=== PATIENT | male | born 1960 | race African-American/Black ===

== ENCOUNTER 2016-09-13 09:58 | Inpatient (IN) | payer OTHER ==
[2016-09-13 11:58] VITALS: BMI 27.8
--- NOTE | 2016-09-13 12:15 | HP ---
CIWA Score - CIWA Score Nausea/Vomitin Muscle Tremors: 3 Anxiety: 3 Agitation: 2 Paroxysmal Sweats: 1-Minimal Palms Moist Orientation: 0-Oriented Tacttile Disturbances: 2-Mild Itch/Numbness/Burn Auditory Disturbances: 2-Mild Harshness/Frighten Visual Disturbances: 2-Mild Sensitivity Headache: 2-Mild CIWA-Ar Total Score: 20 Admission ROS BHS - HPI Chief Complaint: I NEED HELP TO STOP DRINKING ALCOHOL AND COCAINE Allergies/Adverse Reactions: Allergies Allergy/AdvReac Type Severity Reaction Status Date / Time No Known Allergies Allergy Verified 09/13/16 12:17 History of Present Illness: THIS 56 YEARS OLD MALE WITH ALCOHOL AND COCAINE DEPENDENCE,SEEKING HELP FOR DETOX,NEVER BEEN IN DETOX BEFORE MULTIPLE MEDICAL PROBLEMS HTN,HYPERCHOLESTEROLEMIA,CAD S/P ANGIOPLASTY WITH STENT,PVD S/P STENT OLD CVA WITH LEFT SIDE WEAKNESS AMBULATION WITH CANE ANXIETY AND DEPRESSION - Ebola screening Have you traveled outside of the country in the last 21 days: No Have you been sick,other than usual withdrawal symptoms: No - Review of Systems Constitutional: Loss of Appetite, Malaise, Night Sweats, Changes in sleep EENT: reports: Nose Congestion Respiratory: reports: No Symptoms reported, Other (CAD S/P ANGIOPLASTY WITH SENT ON VESSEL) Cardiac: reports: No Symptoms Reported GI: reports: Nausea, Abdominal cramping : reports: No Symptoms Reported Musculoskeletal: reports: Back Pain, Muscle Pain Integumentary: reports: Dryness Neuro: reports: Headache, Other (PLD CVA WITH LEFT SIDE WEAKNESS) Endocrine: reports: No Symptoms Reported Hematology: reports: No Symptoms Reported Psychiatric: reports: Anxious, Depressed Patient History - Patient Medical History Hx Anemia: No Hx Asthma: No Hx Chronic Obstructive Pulmonary Disease (COPD): No Hx Cancer: No Hx Cardiac Disorders: Yes (CAD S/P ANGIOPLASTY WITH STENT ONE VESSEL IN 09/04/14 ) Hx Congestive Heart Failure: No Hx Hypertension: Yes (ON MED) Hx Hypercholesterolemia: Yes (ON MED) Hx Pacemaker: No HX Cerebrovascular Accident: Yes (OLD WITH LEFT SIDE WEAKNESS 2011) Hx Seizures: No Hx Dementia: No Hx Diabetes: No Hx Gastrointestinal Disorders: No Hx Liver Disease: No Hx Genitourinary Disorders: No Hx Sexually Transmitted Disorders: No Hx Renal Disease (ESRD): No Hx Thyroid Disease: No Hx Human Immunodeficiency Virus (HIV): No (LAST 09/06 NEGATIVE) Hx Hepatitis C: No Hx Depression: Yes (ANXIETY) Hx Suicide Attempt: No Hx Bipolar Disorder: No Hx Schizophrenia: No Other Medical History: NO SUICIDAL,NO HOMICIDAL - Patient Surgical History Hx Cardiac Surgery: Yes (S/P ANGIOPLASTY WITH STENT 09/04/14 ONE STENT) Other Surgical History: PVD S/P STENT IN BOTH EXTREMITIES IN 2012 - PPD History Previous Implant?: Yes Documented Results: Negative w/o proof Implanted On Prior R Admission?: No PPD to be Administered?: Yes - Smoking Cessation Smoking history: Current every day smoker Have you smoked in the past 12 months: Yes Aproximately how many cigarettes per day: 3 Hx Chewing Tobacco Use: No Initiated information on smoking cessation: Yes 'Breaking Loose' booklet given: 09/13/16 - Substance & Tx. History Hx Alcohol Use: Yes Hx Substance Use: Yes Substance Use Type: Alcohol, Cocaine Hx Substance Use Treatment: No Family Disease History - Family Disease History Family History: Denies Admission Physical Exam BHS - Vital Signs Vital Signs: Vital Signs - 24 hr 09/13/16 11:56 Temperature 96.9 F L Pulse Rate 59 L Respiratory 20 Rate Blood Pressure 149/96 - Physical General Appearance: Yes: Moderate Distress, Tremorous, Irritable, Sweating, Anxious HEENTM: Yes: Hearing grossly Normal, Normal ENT Inspection, BRENDEN, Nasal Congestion Respiratory: Yes: Lungs Clear, Normal Breath Sounds, No Respiratory Distress Neck: Yes: Within Normal Limits, Supple, Trachea in good position Breast: Yes: Within Normal Limits Cardiology: Yes: Within Normal Limits, Regular Rhythm, Regular Rate, S1, S2 Abdominal: Yes: Within Normal Limits, Normal Bowel Sounds, Non Tender, Flat, Soft Genitourinary: Yes: Within Normal Limits Back: Yes: Muscle Spasm Musculoskeletal: Yes: Back pain, Muscle Pain Extremities: Yes: Normal Range of Motion (PVD S/P SURGERY SIWTH STENT), Tremors Neurological: Yes: accreditation specialist II-XII NML intact (LEFT HEMIPARESIS LEFT), Fully Oriented , Alert Integumentary: Yes: Dry Lymphatic: Yes: Within Normal Limits - Diagnostic (1) Alcohol dependence with uncomplicated withdrawal Current Visit: Yes Status: Acute (2) Cocaine dependence Current Visit: Yes Status: Acute (3) CAD (coronary artery disease) Current Visit: Yes Status: Acute (4) S/P angioplasty with stent Current Visit: Yes Status: Acute (5) Hemiparesis affecting left side as late effect of cerebrovascular accident Current Visit: Yes Status: Acute (6) Use of cane as ambulatory aid Current Visit: Yes Status: Acute (7) Essential (primary) hypertension Current Visit: Yes Status: Acute (8) Hypercholesteremia Current Visit: Yes Status: Acute (9) PVD (peripheral vascular disease) Current Visit: Yes Status: Acute (10) Anxiety and depression Current Visit: Yes Status: Acute Cleared for Admission [facility] - Detox or Rehab [facility] Level of Care: Medically Managed Detox Regimen/Protocol: Librium [facility] Breath Alcohol Content Breath Alcohol Content: 0 Urine Drug Screen - Results Drug Screen Negative: No Urine Drug Screen Results: CRYSTAL-Cocaine
[2016-09-13] MEDS ORDERED: hydrOXYzine PAMOATE 25 MG CAPSULE (FP) PO PRN (12:49)
[2016-09-13] MEDS ORDERED: LOPERAMIDE HCL 2 MG CAPSULE PO PRN (12:49)
[2016-09-13] MEDS ORDERED: P-EPHED 60MG/TRIPROLIDI 2.5MG TABLET PO PRN (12:49)
[2016-09-13] MEDS ORDERED: MAGNESIUM HYDROX 2400MG/30ML ORAL SUSPENSION 30 ML CUP PO PRN (12:49)
[2016-09-13] MEDS ORDERED: chlordiazePOXIDE HCL 25 MG CAPSULE PO PRN (12:49)
[2016-09-13] MEDS ORDERED: MAGNESIUM CITRATE 300 ML BOTTLE PO PRN (12:49)
[2016-09-13] MEDS ORDERED: diphenhydrAMINE HCL 50 MG CAPSULE PO PRN (12:49)
[2016-09-13] MEDS ORDERED: guaiFENesin/D-METHORPHAN HB 10 ML UNIT-DOSE CUPS PO PRN (12:49)
[2016-09-13] MEDS ORDERED: ACETAMINOPHEN 325 MG TABLET (FP) PO PRN (12:49)
[2016-09-13] MEDS ORDERED: IBUPROFEN 400 MG TABLET (FP) PO PRN (12:49)
[2016-09-13] MEDS ORDERED: MENTHOL/PHENOL 1 EACH UD MM PRN (12:49)
[2016-09-13] MEDS ORDERED: MAG HYDROX/AL HYDROX/SIMETH 30 ML UNIT-DOSE CUP PO PRN (12:49)
[2016-09-13] MEDS ORDERED: chlordiazePOXIDE HCL 25 MG CAPSULE PO ONE (12:55)
[2016-09-13] MEDS ORDERED: NITROGLYCERIN SUBLINGUAL 1/150 0.4 MG TAB SL SCH (13:00)
[2016-09-13] MEDS: HYDROCHLOROTHIAZIDE 25 MG TABLET (FP) PO SCH (15:01)
[2016-09-13] MEDS: NICOTINE 14 MG/24 HOURS TOPICAL PATCH TD SCH (15:01)
[2016-09-13] MEDS: METOPROLOL TARTRATE 25 MG TABLET (FP) PO SCH (15:01)
[2016-09-13] MEDS: amLODIPine BESYLATE 10 MG TABLET (FP) PO SCH (15:01)
[2016-09-13] MEDS: CLOPIDOGREL BISULFATE 75 MG TABLET (FP) PO SCH (15:01)
[2016-09-13] MEDS: ASPIRIN 81 MG CHEWABLE TABLETS PO SCH (15:02)
[2016-09-13] MEDS: chlordiazePOXIDE HCL 25 MG CAPSULE PO SCH ×2 (17:24→22:38)
[2016-09-13 17:38] LABS: URINE APPEARANCE SLCLOUDY; URINE BILIRUBIN NEGATIVE (NEGATIVE); URINE BLOOD 2+ (NEGATIVE); URINE COLOR YELLOW; URINE GLUCOSE (UA) NEGATIVE (NEGATIVE); URINE KETONE NEGATIVE (NEGATIVE); URINE NITRITE NEGATIVE (NEGATIVE); URINE PROTEIN NEGATIVE (NEGATIVE); URINE UROBILINOGEN 4.0 E.U/dl mg/dL (0.2-1.0)
[2016-09-13 17:39] LABS: URINE LEUK ESTERASE 3+ (NEGATIVE)
[2016-09-13 17:48] LABS: URINE BACTERIA RARE /hpf (NONE SEEN); URINE MUCUS RARE; URINE RBC 8 /hpf (0-3); URINE WBC 92 /hpf (3-5)
[2016-09-13] MEDS: ATORVASTATIN CA 10 MG TABLET (FP) PO SCH (22:38)
[2016-09-13] MEDS: THIAMINE HCL 100 MG TABLET (FP) PO SCH (22:39)
[2016-09-14] MEDS: chlordiazePOXIDE HCL 25 MG CAPSULE PO SCH ×4 (05:55→22:51)
--- NOTE | 2016-09-14 10:18 | CONSULT ---
[facility] Psychiatric Consult - Data Date of interview: 09/14/16 Admission source: [facility] Identifying data: First admission to [facility] for this 51 y/o male seeking detox treatment at [address] [place] [address] for alcohol and cocaine dependence.Patient is single,a father of two,domiciled,unemployed and deprived of any form of financial support. Substance Abuse History: Heroin since age 13 (intravenous route/10 bags daily) and alcohol (2 pints of vodka).Smokes one pack of cigarettes daily.Last use on . Medical History: Hypertension,cardiac stent X 1,History of CVA with left sided weakness,peripheral vascular disease,coronary artery disease and hypercholesterolemia. Psychiatric History: Diagnosed with Bipolar Disorder.Prescribed remeron,celexa, abilify and klonopin.Followed at the [facility] in [facility].Mr Ospina denies history of suicide attempts. Physical/Sexual Abuse/Trauma History: Patient denies. Mental Status Exam - Mental Status Exam Alert and Oriented to: Time, Place, Person Cognitive Function: Good Patient Appearance: Well Groomed Mood: Withdrawn, Hopeful Affect: Mood Congruent Patient Behavior: Fatigued, Cooperative Speech Pattern: Clear Voice Loudness: Normal Thought Process: Goal Oriented Thought Disorder: Not Present Hallucinations: Denies Suicidal Ideation: Denies Homicidal Ideation: Denies Insight/Judgement: Poor Sleep: Poorly, Difficulty falling asleep Appetite: Good Gait/Station: Other (unsteady gait) Psychiatric Findings - Problem List ([place] 1, 2,3) (1) Alcohol dependence with uncomplicated withdrawal Current Visit: Yes Status: Acute (2) Cocaine dependence Current Visit: Yes Status: Acute (3) Nicotine dependence Current Visit: Yes Status: Acute (4) Substance induced mood disorder Current Visit: Yes Status: Acute (5) CAD (coronary artery disease) Current Visit: Yes Status: Chronic (6) Essential (primary) hypertension Current Visit: Yes Status: Chronic (7) Hemiparesis affecting left side as late effect of cerebrovascular accident Current Visit: Yes Status: Chronic (8) Hypercholesteremia Current Visit: Yes Status: Chronic (9) PVD (peripheral vascular disease) Current Visit: Yes Status: Chronic (10) S/P angioplasty with stent Current Visit: Yes Status: Chronic (11) Use of cane as ambulatory aid Current Visit: Yes Status: Chronic - Initial Treatment Plan Initial Treatment Plan: Psychoeducation.Detoxification.Remeron 15 mg po hs + celexa 20 mg po daily + abilify 5mg po daily.Side effects/benefits discussed with the patient.He agrees with this careplan.Observation.Fall precautions.Pharmacy claims are reviewed .No scripts at discharge (scripts already filled at [facility] on 09/03/16 for these medications).
[2016-09-14] MEDS: CLOPIDOGREL BISULFATE 75 MG TABLET (FP) PO SCH (10:30)
[2016-09-14] MEDS: ASPIRIN 81 MG CHEWABLE TABLETS PO SCH (10:30)
[2016-09-14] MEDS: NICOTINE 14 MG/24 HOURS TOPICAL PATCH TD SCH (10:30)
[2016-09-14] MEDS: HYDROCHLOROTHIAZIDE 25 MG TABLET (FP) PO SCH (10:30)
[2016-09-14] MEDS: PRENATAL VITAMINS W/ FOLIC ACID TABLET (FP) PO SCH (10:30)
[2016-09-14] MEDS: METOPROLOL TARTRATE 25 MG TABLET (FP) PO SCH (10:30)
[2016-09-14] MEDS: amLODIPine BESYLATE 10 MG TABLET (FP) PO SCH (10:30)
[2016-09-14 10:34] LABS: MCH 31.2 pg (25.7-33.7); MCHC 32.9 g/dl (32.0-35.9); MEAN CELL VOLUME 94.6 fl (80-96); MEAN PLT VOLUME 8.6 fl (7.5-11.1); PLATELET COUNT 255 K/MM3 (134-434); RDW 13.5 % (11.9-15.9); WHITE BLOOD COUNT 10.7 K/mm3 (4.0-10.0)
[2016-09-14 11:05] LABS: ALBUMIN 3.8 g/dl (3.4-5.0); ALK PHOS 101 U/L (45-117); ANION GAP 9 (8-16); BILIRUBIN,TOTAL 0.7 mg/dL (0.2-1.0); CALCIUM 9.7 mg/dL (8.5-10.1); CO2 29 mmol/L (21-32); CREATININE 1.2 mg/dL (0.7-1.3); GLUCOSE,RANDOM 50 mg/dL (74-106); SGOT/AST 17 U/L (15-37); SGPT/ALT 17 U/L (12-78); TOT PROT 7.5 g/dl (6.4-8.2)
--- NOTE | 2016-09-14 13:39 | PN ---
[facility] CIWA - CIWA Score Nausea/Vomitin Muscle Tremors: 4-Moderate,w/Arms Extend Anxiety: 3 Agitation: 3 Paroxysmal Sweats: 3 Orientation: 0-Oriented Tacttile Disturbances: 0-None Auditory Disturbances: 0-None Visual Disturbances: 0-None Headache: 0-None Present CIWA-Ar Total Score: 15 [facility] Progress Note (SOAP) Subjective: Anxiety,tremors,sweating,interrupted sleep,restless Objective: 09/14/16 13:37 Vital Signs - 8 hr 09/14/16 09/14/16 09/14/16 06:52 09:33 13:24 Temperature 96.7 F L 97.2 F L 96.7 F L Pulse Rate 59 L 64 53 L Respiratory 18 18 18 Rate Blood Pressure 124/87 126/82 107/79 Laboratory Results - last 24 hr 09/13/16 09/14/16 09/14/16 15:30 06:00 06:00 WBC 10.7 H RBC 4.71 Hgb 14.7 Hct 44.6 MCV 94.6 MCH 31.2 MCHC 32.9 RDW 13.5 Plt Count 255 MPV 8.6 Sodium 143 Potassium 4.0 Chloride 105 Carbon Dioxide 29 Anion Gap 9 BUN 11 Creatinine 1.2 Creat Clearance w eGFR > 60 Random Glucose 50 L Calcium 9.7 Total Bilirubin 0.7 AST 17 ALT 17 Alkaline Phosphatase 101 Total Protein 7.5 Albumin 3.8 Urine Color Yellow Urine Appearance Slcloudy Urine pH 5.0 Ur Specific [place] 1.020 Urine Protein Negative Urine Glucose (UA) Negative Urine Ketones Negative Urine Blood 2+ H Urine Nitrite Negative Urine Bilirubin Negative Urine Urobilinogen 4.0 e.u/dl Ur Leukocyte Esterase 3+ H Urine RBC 8 Urine WBC 92 Ur Epithelial Cells Rare Urine Bacteria Rare Urine Mucus Rare RPR Titer 09/14/16 06:00 WBC RBC Hgb Hct MCV MCH MCHC RDW Plt Count MPV Sodium Potassium Chloride Carbon Dioxide Anion Gap BUN Creatinine Creat Clearance w eGFR Random Glucose Calcium Total Bilirubin AST ALT Alkaline Phosphatase Total Protein Albumin Urine Color Urine Appearance Urine pH Ur Specific [place] Urine Protein Urine Glucose (UA) Urine Ketones Urine Blood Urine Nitrite Urine Bilirubin Urine Urobilinogen Ur Leukocyte Esterase Urine RBC Urine WBC Ur Epithelial Cells Urine Bacteria Urine Mucus RPR Titer Nonreactive labs noted,u/a is abnormal U/C&S ordered Assessment: 09/14/16 13:38 Withdrawal sx. Plan: Continue detox
[2016-09-14 14:14] LABS: SICKLE CELL SCREEN NEGATIVE (NEGATIVE)
[2016-09-14] MEDS: THIAMINE HCL 100 MG TABLET (FP) PO SCH (22:51)
[2016-09-14] MEDS: ATORVASTATIN CA 10 MG TABLET (FP) PO SCH (22:51)
[2016-09-14] MEDS: MIRTAZAPINE 15 MG TABLET (FP) PO SCH (22:51)
[2016-09-15] MEDS: chlordiazePOXIDE HCL 25 MG CAPSULE PO SCH ×3 (05:54→11:50)
[2016-09-15] MEDS: METOPROLOL TARTRATE 25 MG TABLET (FP) PO SCH (10:39)
[2016-09-15] MEDS: amLODIPine BESYLATE 10 MG TABLET (FP) PO SCH (10:39)
[2016-09-15] MEDS: PRENATAL VITAMINS W/ FOLIC ACID TABLET (FP) PO SCH (10:39)
[2016-09-15] MEDS: ASPIRIN 81 MG CHEWABLE TABLETS PO SCH (10:39)
[2016-09-15] MEDS: CITALOPRAM HYDROBROMIDE 20 MG TABLET (FP) PO SCH (10:39)
[2016-09-15] MEDS: CLOPIDOGREL BISULFATE 75 MG TABLET (FP) PO SCH (10:39)
[2016-09-15] MEDS: HYDROCHLOROTHIAZIDE 25 MG TABLET (FP) PO SCH (10:39)
[2016-09-15] MEDS: ARIPiprazole 5 MG TABLET (FP) PO SCH (11:09)
[2016-09-15] MEDS: NICOTINE 14 MG/24 HOURS TOPICAL PATCH TD SCH (11:10)
--- NOTE | 2016-09-15 12:23 | EKG ---
Test Reason : Blood Pressure : / mmHG Vent. Rate : 055 BPM Atrial Rate : 055 BPM P-R Int : 134 ms QRS Dur : 110 ms QT Int : 424 ms P-R-T Axes : -29 019 027 degrees QTc Int : 405 ms SINUS BRADYCARDIA MINIMAL VOLTAGE CRITERIA FOR LVH, MAY BE NORMAL VARIANT BORDERLINE ECG NO PREVIOUS ECGS AVAILABLE Confirmed by TRISTIN PATEL MD ([id number]) on 09/15/2016 12:22:47 PM Referred By: Confirmed By:TRISTIN PATEL MD
--- NOTE | 2016-09-15 15:38 | PN ---
[facility] CIWA - CIWA Score Nausea/Vomitin-No Nausea/No Vomiting Muscle Tremors: 3 Anxiety: 2 Agitation: 2 Paroxysmal Sweats: 3 Orientation: 0-Oriented Tacttile Disturbances: 0-None Auditory Disturbances: 0-None Visual Disturbances: 0-None Headache: 0-None Present CIWA-Ar Total Score: 10 S Progress Note (SOAP) Subjective: Sweating,anxiety,tremors,interrupted sleep. Objective: 09/15/16 15:36 Vital Signs - 8 hr 09/15/16 09/15/16 09:49 13:52 Temperature 98.4 F Pulse Rate 71 57 L Respiratory 18 20 Rate Blood Pressure 131/83 124/80 Laboratory Last Values WBC 10.7 K/mm3 (4.0-10.0) H 09/14/16 06:00 RBC 4.71 M/mm3 (4.00-5.60) 09/14/16 06:00 Hgb 14.7 GM/dL (11.7-16.9) 09/14/16 06:00 Hct 44.6 % (35.4-49) 09/14/16 06:00 MCV 94.6 fl (80-96) 09/14/16 06:00 MCH 31.2 pg (25.7-33.7) 09/14/16 06:00 MCHC 32.9 g/dl (32.0-35.9) 09/14/16 06:00 RDW 13.5 % (11.9-15.9) 09/14/16 06:00 Plt Count 255 K/MM3 (134-434) 09/14/16 06:00 MPV 8.6 fl (7.5-11.1) 09/14/16 06:00 Sickle Cell Screen Negative (NEGATIVE) 09/14/16 06:00 Sodium 143 mmol/L (136-145) 09/14/16 06:00 Potassium 4.0 mmol/L (3.5-5.1) 09/14/16 06:00 Chloride 105 mmol/L (98-107) 09/14/16 06:00 Carbon Dioxide 29 mmol/L (21-32) 09/14/16 06:00 Anion Gap 9 (8-16) 09/14/16 06:00 BUN 11 mg/dL (7-18) 09/14/16 06:00 Creatinine 1.2 mg/dL (0.7-1.3) 09/14/16 06:00 Creat Clearance w eGFR > 60 (>60) 09/14/16 06:00 Random Glucose 50 mg/dL (74-106) L 09/14/16 06:00 Calcium 9.7 mg/dL (8.5-10.1) 09/14/16 06:00 Total Bilirubin 0.7 mg/dL (0.2-1.0) 09/14/16 06:00 AST 17 U/L (15-37) 09/14/16 06:00 ALT 17 U/L (12-78) 09/14/16 06:00 Alkaline Phosphatase 101 U/L (45-117) 09/14/16 06:00 Total Protein 7.5 g/dl (6.4-8.2) 09/14/16 06:00 Albumin 3.8 g/dl (3.4-5.0) 09/14/16 06:00 Urine Color Yellow 09/13/16 15:30 Urine Appearance Slcloudy 09/13/16 15:30 Urine pH 5.0 (5.0-8.0) 09/13/16 15:30 Ur Specific [place] 1.020 (1.005-1.025) 09/13/16 15:30 Urine Protein Negative (NEGATIVE) 09/13/16 15:30 Urine Glucose (UA) Negative (NEGATIVE) 09/13/16 15:30 Urine Ketones Negative (NEGATIVE) 09/13/16 15:30 Urine Blood 2+ (NEGATIVE) H 09/13/16 15:30 Urine Nitrite Negative (NEGATIVE) 09/13/16 15:30 Urine Bilirubin Negative (NEGATIVE) 09/13/16 15:30 Urine Urobilinogen 4.0 e.u/dl mg/dL (0.2-1.0) 09/13/16 15:30 Ur Leukocyte Esterase 3+ (NEGATIVE) H 09/13/16 15:30 Urine RBC 8 /hpf (0-3) 09/13/16 15:30 Urine WBC 92 /hpf (3-5) 09/13/16 15:30 Ur Epithelial Cells Rare /hpf (FEW) 09/13/16 15:30 Urine Bacteria Rare /hpf (NONE SEEN) 09/13/16 15:30 Urine Mucus Rare 09/13/16 15:30 RPR Titer Nonreactive (NONREACTIVE) 09/14/16 06:00 labs noted Assessment: 09/15/16 15:37 Withdrawal sx. Plan: Continue detox u/c&s pending
[2016-09-15] MEDS: chlordiazePOXIDE 5 MG CAPSULE PO SCH ×2 (17:13→22:34)
[2016-09-15] MEDS: THIAMINE HCL 100 MG TABLET (FP) PO SCH (22:34)
[2016-09-15] MEDS: ATORVASTATIN CA 10 MG TABLET (FP) PO SCH (22:34)
[2016-09-15] MEDS: MIRTAZAPINE 15 MG TABLET (FP) PO SCH (22:34)
[2016-09-16] MEDS: chlordiazePOXIDE 5 MG CAPSULE PO SCH (05:36)
[2016-09-16 06:52] VITALS: BP 120/79; PULSE 62; TEMP 96.9
[2016-09-16] MEDS: ASPIRIN 81 MG CHEWABLE TABLETS PO SCH (09:25)
[2016-09-16] MEDS: CLOPIDOGREL BISULFATE 75 MG TABLET (FP) PO SCH (09:25)
[2016-09-16] MEDS: CITALOPRAM HYDROBROMIDE 20 MG TABLET (FP) PO SCH (09:26)
[2016-09-16] MEDS: amLODIPine BESYLATE 10 MG TABLET (FP) PO SCH (09:26)
[2016-09-16] MEDS: ARIPiprazole 5 MG TABLET (FP) PO SCH (09:26)
[2016-09-16] MEDS: PRENATAL VITAMINS W/ FOLIC ACID TABLET (FP) PO SCH (09:26)
[2016-09-16] MEDS: NICOTINE 14 MG/24 HOURS TOPICAL PATCH TD SCH (09:26)
[2016-09-16] MEDS: METOPROLOL TARTRATE 25 MG TABLET (FP) PO SCH (09:26)
[2016-09-16] MEDS: HYDROCHLOROTHIAZIDE 25 MG TABLET (FP) PO SCH (09:26)
--- NOTE | 2016-09-16 14:17 | DS ---
[facility] Detox Discharge Summary Admission Date: 09/13/16 Discharge Date: 09/16/16 - History Present History: Alcohol Dependence, Cocaine Dependence Pertinent Past History: CAD HTN Hypercholesterolemia coronary stent - Physical Exam Results Vital Signs: Vital Signs Temperature 96.9 F L 09/16/16 06:51 Pulse Rate 62 09/16/16 06:51 Respiratory Rate 18 09/16/16 06:51 Blood Pressure 120/79 09/16/16 06:51 O2 Sat by Pulse Oximetry (%) Pertinent Admission Physical Exam Findings: Withdrawal sx. Laboratory Last Values WBC 10.7 K/mm3 (4.0-10.0) H 09/14/16 06:00 RBC 4.71 M/mm3 (4.00-5.60) 09/14/16 06:00 Hgb 14.7 GM/dL (11.7-16.9) 09/14/16 06:00 Hct 44.6 % (35.4-49) 09/14/16 06:00 MCV 94.6 fl (80-96) 09/14/16 06:00 MCH 31.2 pg (25.7-33.7) 09/14/16 06:00 MCHC 32.9 g/dl (32.0-35.9) 09/14/16 06:00 RDW 13.5 % (11.9-15.9) 09/14/16 06:00 Plt Count 255 K/MM3 (134-434) 09/14/16 06:00 MPV 8.6 fl (7.5-11.1) 09/14/16 06:00 Sickle Cell Screen Negative (NEGATIVE) 09/14/16 06:00 Sodium 143 mmol/L (136-145) 09/14/16 06:00 Potassium 4.0 mmol/L (3.5-5.1) 09/14/16 06:00 Chloride 105 mmol/L (98-107) 09/14/16 06:00 Carbon Dioxide 29 mmol/L (21-32) 09/14/16 06:00 Anion Gap 9 (8-16) 09/14/16 06:00 BUN 11 mg/dL (7-18) 09/14/16 06:00 Creatinine 1.2 mg/dL (0.7-1.3) 09/14/16 06:00 Creat Clearance w eGFR > 60 (>60) 09/14/16 06:00 Random Glucose 50 mg/dL (74-106) L 09/14/16 06:00 Calcium 9.7 mg/dL (8.5-10.1) 09/14/16 06:00 Total Bilirubin 0.7 mg/dL (0.2-1.0) 09/14/16 06:00 AST 17 U/L (15-37) 09/14/16 06:00 ALT 17 U/L (12-78) 09/14/16 06:00 Alkaline Phosphatase 101 U/L (45-117) 09/14/16 06:00 Total Protein 7.5 g/dl (6.4-8.2) 09/14/16 06:00 Albumin 3.8 g/dl (3.4-5.0) 09/14/16 06:00 Urine Color Yellow 09/13/16 15:30 Urine Appearance Slcloudy 09/13/16 15:30 Urine pH 5.0 (5.0-8.0) 09/13/16 15:30 Ur Specific [place] 1.020 (1.005-1.025) 09/13/16 15:30 Urine Protein Negative (NEGATIVE) 09/13/16 15:30 Urine Glucose (UA) Negative (NEGATIVE) 09/13/16 15:30 Urine Ketones Negative (NEGATIVE) 09/13/16 15:30 Urine Blood 2+ (NEGATIVE) H 09/13/16 15:30 Urine Nitrite Negative (NEGATIVE) 09/13/16 15:30 Urine Bilirubin Negative (NEGATIVE) 09/13/16 15:30 Urine Urobilinogen 4.0 e.u/dl mg/dL (0.2-1.0) 09/13/16 15:30 Ur Leukocyte Esterase 3+ (NEGATIVE) H 09/13/16 15:30 Urine RBC 8 /hpf (0-3) 09/13/16 15:30 Urine WBC 92 /hpf (3-5) 09/13/16 15:30 Ur Epithelial Cells Rare /hpf (FEW) 09/13/16 15:30 Urine Bacteria Rare /hpf (NONE SEEN) 09/13/16 15:30 Urine Mucus Rare 09/13/16 15:30 RPR Titer Nonreactive (NONREACTIVE) 09/14/16 06:00 labs noted - Treatment Patient has Accepted a Rehab Referral to: [facility] - Medication Discharge Medications: Ambulatory Orders Amlodipine Besylate [Norvasc -] 10 mg PO DAILY 09/13/16 Aripiprazole [Abilify -] 5 mg PO DAILY 09/13/16 Aspirin [ASA -] 81 mg PO DAILY 09/13/16 Citalopram Hydrobromide [Celexa -] 20 mg PO DAILY 09/13/16 Clopidogrel Bisulfate [Plavix -] 75 mg PO DAILY 09/13/16 Hydrochlorothiazide 25 mg PO DAILY 09/13/16 Metoprolol Tartrate [Lopressor -] 25 mg PO DAILY 09/13/16 Nitroglycerin [Nitrostat] 0.4 mg SL PRN 09/13/16 Simvastatin [Zocor -] 20 mg PO HS 09/13/16 - Diagnosis (1) Alcohol dependence with uncomplicated withdrawal Status: Acute (2) Cocaine dependence Status: Acute Qualifiers: Substance use status: uncomplicated Qualified Code(s): F14.20 - Cocaine dependence, uncomplicated (3) Nicotine dependence Status: Acute Qualifiers: Nicotine product type: cigarettes Substance use status: uncomplicated Qualified Code(s): F17.210 - Nicotine dependence, cigarettes, uncomplicated (4) Substance induced mood disorder Status: Acute (5) CAD (coronary artery disease) Status: Chronic Qualifiers: Coronary Disease-Associated Artery/Lesion type: [place] artery [place] vs. transplanted heart: [place] heart Associated angina: without angina Qualified Code(s): I25.10 - Atherosclerotic heart disease of [place] coronary artery without angina pectoris (6) Essential (primary) hypertension Status: Chronic (7) Hypercholesteremia Status: Chronic (8) PVD (peripheral vascular disease) Status: Chronic (9) S/P angioplasty with stent Status: Chronic - AMA Did Patient Leave Against Medical Advice: Yes
[2016-09-16] MEDS ORDERED: chlordiazePOXIDE HCL 10 MG CAPSULE PO SCH (17:00)
== END 2016-09-16 09:28 | disposition left against medical advice (07) | DRG 774 ==
LOC: YASAS 09:58 → Y3N 12:42
PROVIDERS: ADMIT Internal Medicine; ATTEND Internal Medicine
PROC: HZ2ZZZZ Detoxification Services for Substance Abuse Treatment (ICD-10-PCS; principal; 2016-09-13)
DX: F10.230 Alcohol dependence with withdrawal, uncomplicated (principal); F14.20 Cocaine dependence, uncomplicated; F17.210 Nicotine dependence, cigarettes, uncomplicated; F19.24 Other psychoactive substance dependence with psychoactive substance-induced mood disorder; I10 Essential (primary) hypertension; I25.10 Atherosclerotic heart disease of native coronary artery without angina pectoris; I69.354 Hemiplegia and hemiparesis following cerebral infarction affecting left non-dominant side; E78.00 Pure hypercholesterolemia, unspecified; I73.9 Peripheral vascular disease, unspecified; R82.90 Unspecified abnormal findings in urine; Z79.82 Long term (current) use of aspirin; Z95.5 Presence of coronary angioplasty implant and graft; R26.2 Difficulty in walking, not elsewhere classified; Z99.89 Dependence on other enabling machines and devices
CPT/HCPCS: 36415; 80053; 81003; 81015; 85027; 85660; 86593; 87086; 93005; 93010

== ENCOUNTER 2016-09-27 11:05 | Inpatient (IN) | payer OTHER ==
[2016-09-27 12:58] VITALS: BMI 26.6
[2016-09-27] MEDS ORDERED: LOPERAMIDE HCL 2 MG CAPSULE PO PRN (15:07)
[2016-09-27] MEDS ORDERED: IBUPROFEN 400 MG TABLET (FP) PO PRN (15:07)
[2016-09-27] MEDS ORDERED: MAGNESIUM HYDROX 2400MG/30ML ORAL SUSPENSION 30 ML CUP PO PRN (15:07)
[2016-09-27] MEDS ORDERED: hydrOXYzine PAMOATE 25 MG CAPSULE (FP) PO PRN (15:07)
[2016-09-27] MEDS ORDERED: MAGNESIUM CITRATE 300 ML BOTTLE PO PRN (15:07)
[2016-09-27] MEDS ORDERED: MAG HYDROX/AL HYDROX/SIMETH 30 ML UNIT-DOSE CUP PO PRN (15:07)
[2016-09-27] MEDS ORDERED: guaiFENesin/D-METHORPHAN HB 10 ML UNIT-DOSE CUPS PO PRN (15:07)
[2016-09-27] MEDS ORDERED: ACETAMINOPHEN 325 MG TABLET (FP) PO PRN (15:07)
[2016-09-27] MEDS ORDERED: diphenhydrAMINE HCL 50 MG CAPSULE PO PRN (15:07)
[2016-09-27] MEDS ORDERED: P-EPHED 60MG/TRIPROLIDI 2.5MG TABLET PO PRN (15:07)
[2016-09-27] MEDS ORDERED: NICOTINE POLACRILEX 2 MG GUM BUC PRN (15:07)
[2016-09-27] MEDS ORDERED: MENTHOL/PHENOL 1 EACH UD MM PRN (15:07)
--- NOTE | 2016-09-27 15:07 | HP ---
[facility] Rehab Assess/Revision - Admission History Admitted to Rehab from: [facility] (DETOXED 09/13/16 TO 09/16/16) Date of Admission to Rehab: 09/27/16 - Vital signs Vital Signs: Vital Signs Period Temp Pulse Resp BP Sys/Odell Pulse Ox Last 24 Hr 96.4 F 50 20 131/86 - Findings Detox History & Physical reviewed: Yes Concur with findings: Yes Comments/Additional Findings: PT RETURNED TO FOLLOW UP WITH REHAB. ALERT O X 3. NAD. ADMIT TO REHAB
[2016-09-27] MEDS ORDERED: NITROGLYCERIN SUBLINGUAL 1/150 0.4 MG TAB SL SCH (15:15)
[2016-09-27] MEDS: NICOTINE 14 MG/24 HOURS TOPICAL PATCH TD SCH (18:15)
[2016-09-27] MEDS: CLOPIDOGREL BISULFATE 75 MG TABLET (FP) PO SCH (18:16)
[2016-09-27] MEDS: HYDROCHLOROTHIAZIDE 25 MG TABLET (FP) PO SCH (18:16)
[2016-09-27] MEDS ORDERED: PT OWN MED DRAWER 7, Y5N ONE (19:40)
[2016-09-27] MEDS: PATIENT'S OWN MEDICATION (NON-FORMULARY) (Simvastatin 20 MG) PO SCH (21:12)
[2016-09-27] MEDS: THIAMINE HCL 100 MG TABLET (FP) PO SCH (21:12)
[2016-09-27 22:50] LABS: URINE APPEARANCE SLCLOUDY; URINE BILIRUBIN NEGATIVE (NEGATIVE); URINE BLOOD 1+ (NEGATIVE); URINE COLOR YELLOW; URINE GLUCOSE (UA) NEGATIVE (NEGATIVE); URINE KETONE NEGATIVE (NEGATIVE); URINE LEUK ESTERASE NEGATIVE (NEGATIVE); URINE NITRITE NEGATIVE (NEGATIVE); URINE PROTEIN NEGATIVE (NEGATIVE); URINE UROBILINOGEN 4.0 E.U/dl mg/dL (0.2-1.0)
[2016-09-27 23:07] LABS: URINE HYALINE CAST 1 /lpf; URINE MUCUS RARE; URINE RBC 7 /hpf (0-3); URINE WBC 6 /hpf (3-5)
--- NOTE | 2016-09-28 06:20 | HP ---
Psychiatrist Admission - Data Date of interview: 09/28/16 Admission source: [facility] Identifying data: This is the First [facility] admission for this 56 years old single Black male, father of 2 children, unemployed on SSI, domiciled Medical History: Significant for HTN, Hyperlipidemia, CAD S/P angioplasty with stent, PVD, S/P old CVA with left sided weakness. Smokes 3 cigarettes daily Psychiatric History: Reports being diagnosed with MDD after he had a stroke and was pescribed Abilify. Told radio script writer that after the stoke, he started feeling depressed due to the fact that his functioning became very limited. Reports that he has not been very compliance with psychiatric outpatient treatment since. Now he sees a therapist at the [facility] in [facility] and his psychotropic medications( Abilify 5mg + Celexa 20 mg) are prescribed by his primary care physician at [facility]. Denies history of psychiatric hospitalization or suicidal attempt. He saw Dr Rios on 09/14/16 while in detox and was prescribed Abilify 5 mg po daily, Celexa 20 mg po daily and Remeron 15 mg po HS. At present, reports feeling depressed and sleeping poorly without medication Physical/Sexual Abuse/Trauma History: Denies history of emotional, physical or sexual abuse as well as DV relationship. No service Additional Comment: Reportshistory of 3-4 previous misdemeanor arrests. Denies being on probation at present Vital Signs: Vital Signs - 24 hr 09/27/16 09/28/16 09/28/16 12:47 00:30 03:30 Temperature 96.4 F L Pulse Rate 50 L Respiratory 20 18 18 Rate Blood Pressure 131/86 Allergies/Adverse Reactions: Allergies Allergy/AdvReac Type Severity Reaction Status Date / Time No Known Allergies Allergy Verified 09/27/16 13:23 Date of last physical exam: 09/16/16 Concur with the findings of this exam: Yes - Substance Abuse/Tx History Hx Alcohol Use: Yes Hx Substance Use: Yes Substance Use Type: Alcohol (Started drinking alcohol at age 18, consumes one pint of whiskey & 2x 6pk of beer daily. Last drink on 09/13/16), Cocaine ( Started smoking crack cocaine at age 21, consumes $200 worth daily. Last smoked on 09/12/16) Hx Substance Use Treatment: Yes (one recent incomplete inpt detox @ [facility] & one inpt rehab @ [facility]) - Admission Criteria Previous failed treatment: Yes Poor recovery environment: Yes Comorbidities: Yes Lacks judgement: Yes Mental Status Exam - Mental Status Exam Alert and Oriented to: Time, Place, Person Cognitive Function: Fair Patient Appearance: Well Groomed Mood: Depressed Affect: Appropriate Patient Behavior: Cooperative Speech Pattern: Clear Voice Loudness: Normal Thought Process: Intact, Goal Oriented Thought Disorder: Not Present Hallucinations: Denies Suicidal Ideation: Denies Homicidal Ideation: Denies Insight/Judgement: Fair Sleep: Poorly Appetite: Good Muscle strength/Tone: Normal Gait/Station: Hemiparetic (walks with a cane due wilma left sided weakness secondary to the stroke) Psychiatric Findings - Problem List ([place] 1, 2,3) (1) Alcohol dependence Current Visit: Yes Status: Acute (2) Cocaine dependence Current Visit: Yes Status: Chronic Qualifiers: Substance use status: in withdrawal Qualified Code(s): F14.23 - Cocaine dependence with withdrawal (3) Nicotine dependence Current Visit: Yes Status: Acute Qualifiers: Nicotine product type: cigarettes Substance use status: in withdrawal Qualified Code(s): F17.213 - Nicotine dependence, cigarettes, with withdrawal (4) MDD (major depressive disorder), recurrent episode Current Visit: Yes Status: Acute (5) Essential (primary) hypertension Current Visit: Yes Status: Chronic (6) Hypercholesteremia Current Visit: Yes Status: Chronic (7) CAD (coronary artery disease) Current Visit: Yes Status: Chronic Qualifiers: (8) S/P angioplasty with stent Current Visit: Yes Status: Chronic (9) PVD (peripheral vascular disease) Current Visit: Yes Status: Chronic (10) Hemiparesis affecting left side as late effect of cerebrovascular accident Current Visit: Yes Status: Chronic (11) Use of cane as ambulatory aid Current Visit: Yes Status: Chronic - Initial Treatment Plan Initial Treatment Plan: 1) Continue Celexa 20 mg po daily, Abilify 5 mg po daily and Remeron 15 mg po HS. 2) Monitor progress
[2016-09-28] MEDS ORDERED: PT OWN MED DRAWER 7, Y5N ONE ×2 (07:24→20:58)
[2016-09-28] MEDS: METOPROLOL TARTRATE 25 MG TABLET (FP) PO SCH (09:50)
[2016-09-28] MEDS: HYDROCHLOROTHIAZIDE 25 MG TABLET (FP) PO SCH (09:50)
[2016-09-28] MEDS: CLOPIDOGREL BISULFATE 75 MG TABLET (FP) PO SCH (09:50)
[2016-09-28] MEDS: ARIPiprazole 5 MG TABLET (FP) PO SCH (09:50)
[2016-09-28] MEDS: ASPIRIN COATED 81 MG TABLET.EC PO SCH (09:50)
[2016-09-28] MEDS: NICOTINE 14 MG/24 HOURS TOPICAL PATCH TD SCH (09:50)
[2016-09-28] MEDS: amLODIPine BESYLATE 10 MG TABLET (FP) PO SCH (09:50)
[2016-09-28] MEDS: CITALOPRAM HYDROBROMIDE 20 MG TABLET (FP) PO SCH (09:50)
[2016-09-28] MEDS: PRENATAL VITAMINS W/ FOLIC ACID TABLET (FP) PO SCH (10:00)
[2016-09-28] MEDS: PATIENT'S OWN MEDICATION (NON-FORMULARY) (Simvastatin 20 MG) PO SCH (21:38)
[2016-09-28] MEDS: MIRTAZAPINE 15 MG TABLET (FP) PO SCH (21:38)
[2016-09-28] MEDS: THIAMINE HCL 100 MG TABLET (FP) PO SCH (21:38)
[2016-09-29] MEDS: METOPROLOL TARTRATE 25 MG TABLET (FP) PO SCH (09:52)
[2016-09-29] MEDS: PRENATAL VITAMINS W/ FOLIC ACID TABLET (FP) PO SCH (09:52)
[2016-09-29] MEDS: amLODIPine BESYLATE 10 MG TABLET (FP) PO SCH (09:52)
[2016-09-29] MEDS: CITALOPRAM HYDROBROMIDE 20 MG TABLET (FP) PO SCH (09:52)
[2016-09-29] MEDS: ARIPiprazole 5 MG TABLET (FP) PO SCH (09:52)
[2016-09-29] MEDS: NICOTINE 14 MG/24 HOURS TOPICAL PATCH TD SCH (09:53)
[2016-09-29] MEDS: HYDROCHLOROTHIAZIDE 25 MG TABLET (FP) PO SCH (09:53)
[2016-09-29] MEDS: ASPIRIN COATED 81 MG TABLET.EC PO SCH (09:53)
[2016-09-29] MEDS: CLOPIDOGREL BISULFATE 75 MG TABLET (FP) PO SCH (09:56)
[2016-09-29] MEDS: PATIENT'S OWN MEDICATION (NON-FORMULARY) (Simvastatin 20 MG) PO SCH (21:10)
[2016-09-29] MEDS: MIRTAZAPINE 15 MG TABLET (FP) PO SCH (21:10)
[2016-09-29] MEDS: THIAMINE HCL 100 MG TABLET (FP) PO SCH (21:10)
[2016-09-30] MEDS: METOPROLOL TARTRATE 25 MG TABLET (FP) PO SCH (10:02)
[2016-09-30] MEDS: ASPIRIN COATED 81 MG TABLET.EC PO SCH (10:02)
[2016-09-30] MEDS: ARIPiprazole 5 MG TABLET (FP) PO SCH (10:02)
[2016-09-30] MEDS: amLODIPine BESYLATE 10 MG TABLET (FP) PO SCH (10:02)
[2016-09-30] MEDS: HYDROCHLOROTHIAZIDE 25 MG TABLET (FP) PO SCH (10:02)
[2016-09-30] MEDS: CITALOPRAM HYDROBROMIDE 20 MG TABLET (FP) PO SCH (10:02)
[2016-09-30] MEDS: PRENATAL VITAMINS W/ FOLIC ACID TABLET (FP) PO SCH (10:02)
[2016-09-30] MEDS: CLOPIDOGREL BISULFATE 75 MG TABLET (FP) PO SCH (10:02)
[2016-09-30] MEDS: NICOTINE 14 MG/24 HOURS TOPICAL PATCH TD SCH (10:04)
[2016-09-30] MEDS: MIRTAZAPINE 15 MG TABLET (FP) PO SCH (21:12)
[2016-09-30] MEDS: PATIENT'S OWN MEDICATION (NON-FORMULARY) (Simvastatin 20 MG) PO SCH (21:12)
[2016-09-30] MEDS: THIAMINE HCL 100 MG TABLET (FP) PO SCH (21:12)
[2016-10-01] MEDS: PRENATAL VITAMINS W/ FOLIC ACID TABLET (FP) PO SCH (09:31)
[2016-10-01] MEDS: CLOPIDOGREL BISULFATE 75 MG TABLET (FP) PO SCH (09:32)
[2016-10-01] MEDS: amLODIPine BESYLATE 10 MG TABLET (FP) PO SCH (09:32)
[2016-10-01] MEDS: ASPIRIN COATED 81 MG TABLET.EC PO SCH (09:32)
[2016-10-01] MEDS: ARIPiprazole 5 MG TABLET (FP) PO SCH (09:32)
[2016-10-01] MEDS: METOPROLOL TARTRATE 25 MG TABLET (FP) PO SCH (09:32)
[2016-10-01] MEDS: CITALOPRAM HYDROBROMIDE 20 MG TABLET (FP) PO SCH (09:32)
[2016-10-01] MEDS: HYDROCHLOROTHIAZIDE 25 MG TABLET (FP) PO SCH (09:33)
[2016-10-01] MEDS: NICOTINE 14 MG/24 HOURS TOPICAL PATCH TD SCH (09:35)
[2016-10-01] MEDS: PATIENT'S OWN MEDICATION (NON-FORMULARY) (Simvastatin 20 MG) PO SCH (21:12)
[2016-10-01] MEDS: MIRTAZAPINE 15 MG TABLET (FP) PO SCH (21:12)
[2016-10-01] MEDS: THIAMINE HCL 100 MG TABLET (FP) PO SCH (21:12)
[2016-10-02] MEDS: NICOTINE 14 MG/24 HOURS TOPICAL PATCH TD SCH (09:36)
[2016-10-02] MEDS: PRENATAL VITAMINS W/ FOLIC ACID TABLET (FP) PO SCH (09:37)
[2016-10-02] MEDS: HYDROCHLOROTHIAZIDE 25 MG TABLET (FP) PO SCH (09:37)
[2016-10-02] MEDS: ASPIRIN COATED 81 MG TABLET.EC PO SCH (09:37)
[2016-10-02] MEDS: amLODIPine BESYLATE 10 MG TABLET (FP) PO SCH (09:37)
[2016-10-02] MEDS: ARIPiprazole 5 MG TABLET (FP) PO SCH (09:37)
[2016-10-02] MEDS: CITALOPRAM HYDROBROMIDE 20 MG TABLET (FP) PO SCH (09:37)
[2016-10-02] MEDS: METOPROLOL TARTRATE 25 MG TABLET (FP) PO SCH (09:37)
[2016-10-02] MEDS: CLOPIDOGREL BISULFATE 75 MG TABLET (FP) PO SCH (09:37)
[2016-10-02] MEDS: THIAMINE HCL 100 MG TABLET (FP) PO SCH (21:17)
[2016-10-02] MEDS: MIRTAZAPINE 15 MG TABLET (FP) PO SCH (21:18)
[2016-10-02] MEDS: PATIENT'S OWN MEDICATION (NON-FORMULARY) (Simvastatin 20 MG) PO SCH (21:18)
[2016-10-03] MEDS: ARIPiprazole 5 MG TABLET (FP) PO SCH (09:49)
[2016-10-03] MEDS: HYDROCHLOROTHIAZIDE 25 MG TABLET (FP) PO SCH (09:49)
[2016-10-03] MEDS: METOPROLOL TARTRATE 25 MG TABLET (FP) PO SCH (09:49)
[2016-10-03] MEDS: CITALOPRAM HYDROBROMIDE 20 MG TABLET (FP) PO SCH (09:49)
[2016-10-03] MEDS: amLODIPine BESYLATE 10 MG TABLET (FP) PO SCH (09:49)
[2016-10-03] MEDS: NICOTINE 14 MG/24 HOURS TOPICAL PATCH TD SCH (09:49)
[2016-10-03] MEDS: PRENATAL VITAMINS W/ FOLIC ACID TABLET (FP) PO SCH (09:49)
[2016-10-03] MEDS: CLOPIDOGREL BISULFATE 75 MG TABLET (FP) PO SCH (09:49)
[2016-10-03] MEDS: ASPIRIN COATED 81 MG TABLET.EC PO SCH (09:49)
[2016-10-03] MEDS: THIAMINE HCL 100 MG TABLET (FP) PO SCH (21:32)
[2016-10-03] MEDS: PATIENT'S OWN MEDICATION (NON-FORMULARY) (Simvastatin 20 MG) PO SCH (21:32)
[2016-10-03] MEDS: MIRTAZAPINE 15 MG TABLET (FP) PO SCH (21:33)
[2016-10-04] MEDS: ARIPiprazole 5 MG TABLET (FP) PO SCH (10:07)
[2016-10-04] MEDS: HYDROCHLOROTHIAZIDE 25 MG TABLET (FP) PO SCH (10:07)
[2016-10-04] MEDS: PRENATAL VITAMINS W/ FOLIC ACID TABLET (FP) PO SCH (10:07)
[2016-10-04] MEDS: amLODIPine BESYLATE 10 MG TABLET (FP) PO SCH (10:07)
[2016-10-04] MEDS: NICOTINE 14 MG/24 HOURS TOPICAL PATCH TD SCH (10:08)
[2016-10-04] MEDS: METOPROLOL TARTRATE 25 MG TABLET (FP) PO SCH (10:08)
[2016-10-04] MEDS: CLOPIDOGREL BISULFATE 75 MG TABLET (FP) PO SCH (10:08)
[2016-10-04] MEDS: ASPIRIN COATED 81 MG TABLET.EC PO SCH (10:08)
[2016-10-04] MEDS: CITALOPRAM HYDROBROMIDE 20 MG TABLET (FP) PO SCH (10:08)
[2016-10-04] MEDS: THIAMINE HCL 100 MG TABLET (FP) PO SCH (21:17)
[2016-10-04] MEDS: MIRTAZAPINE 15 MG TABLET (FP) PO SCH (21:17)
[2016-10-04] MEDS: PATIENT'S OWN MEDICATION (NON-FORMULARY) (Simvastatin 20 MG) PO SCH (21:17)
[2016-10-05] MEDS: PRENATAL VITAMINS W/ FOLIC ACID TABLET (FP) PO SCH (09:45)
[2016-10-05] MEDS: CITALOPRAM HYDROBROMIDE 20 MG TABLET (FP) PO SCH (09:45)
[2016-10-05] MEDS: NICOTINE 14 MG/24 HOURS TOPICAL PATCH TD SCH (09:45)
[2016-10-05] MEDS: amLODIPine BESYLATE 10 MG TABLET (FP) PO SCH (09:46)
[2016-10-05] MEDS: ASPIRIN COATED 81 MG TABLET.EC PO SCH (09:46)
[2016-10-05] MEDS: CLOPIDOGREL BISULFATE 75 MG TABLET (FP) PO SCH (09:46)
[2016-10-05] MEDS: ARIPiprazole 5 MG TABLET (FP) PO SCH (09:46)
[2016-10-05] MEDS: METOPROLOL TARTRATE 25 MG TABLET (FP) PO SCH (09:46)
[2016-10-05] MEDS: HYDROCHLOROTHIAZIDE 25 MG TABLET (FP) PO SCH (09:46)
[2016-10-05] MEDS: THIAMINE HCL 100 MG TABLET (FP) PO SCH (21:17)
[2016-10-05] MEDS: PATIENT'S OWN MEDICATION (NON-FORMULARY) (Simvastatin 20 MG) PO SCH (21:18)
[2016-10-05] MEDS: MIRTAZAPINE 15 MG TABLET (FP) PO SCH (21:18)
[2016-10-06] MEDS: ARIPiprazole 5 MG TABLET (FP) PO SCH (09:52)
[2016-10-06] MEDS: amLODIPine BESYLATE 10 MG TABLET (FP) PO SCH (09:52)
[2016-10-06] MEDS: ASPIRIN COATED 81 MG TABLET.EC PO SCH (09:52)
[2016-10-06] MEDS: HYDROCHLOROTHIAZIDE 25 MG TABLET (FP) PO SCH (09:52)
[2016-10-06] MEDS: CLOPIDOGREL BISULFATE 75 MG TABLET (FP) PO SCH (09:52)
[2016-10-06] MEDS: CITALOPRAM HYDROBROMIDE 20 MG TABLET (FP) PO SCH (09:52)
[2016-10-06] MEDS: PRENATAL VITAMINS W/ FOLIC ACID TABLET (FP) PO SCH (09:52)
[2016-10-06] MEDS: METOPROLOL TARTRATE 25 MG TABLET (FP) PO SCH (09:52)
[2016-10-06] MEDS: NICOTINE 14 MG/24 HOURS TOPICAL PATCH TD SCH (09:53)
[2016-10-06] MEDS: PATIENT'S OWN MEDICATION (NON-FORMULARY) (Simvastatin 20 MG) PO SCH (21:25)
[2016-10-06] MEDS: THIAMINE HCL 100 MG TABLET (FP) PO SCH (21:25)
[2016-10-06] MEDS: MIRTAZAPINE 15 MG TABLET (FP) PO SCH (21:25)
[2016-10-07] MEDS: HYDROCHLOROTHIAZIDE 25 MG TABLET (FP) PO SCH (09:45)
[2016-10-07] MEDS: METOPROLOL TARTRATE 25 MG TABLET (FP) PO SCH (09:45)
[2016-10-07] MEDS: NICOTINE 14 MG/24 HOURS TOPICAL PATCH TD SCH (09:45)
[2016-10-07] MEDS: PRENATAL VITAMINS W/ FOLIC ACID TABLET (FP) PO SCH (09:45)
[2016-10-07] MEDS: CITALOPRAM HYDROBROMIDE 20 MG TABLET (FP) PO SCH (09:45)
[2016-10-07] MEDS: ASPIRIN COATED 81 MG TABLET.EC PO SCH (09:45)
[2016-10-07] MEDS: CLOPIDOGREL BISULFATE 75 MG TABLET (FP) PO SCH (09:45)
[2016-10-07] MEDS: amLODIPine BESYLATE 10 MG TABLET (FP) PO SCH (09:45)
[2016-10-07] MEDS: ARIPiprazole 5 MG TABLET (FP) PO SCH (09:46)
[2016-10-07] MEDS: MIRTAZAPINE 15 MG TABLET (FP) PO SCH (21:35)
[2016-10-07] MEDS: THIAMINE HCL 100 MG TABLET (FP) PO SCH (21:35)
[2016-10-07] MEDS: PATIENT'S OWN MEDICATION (NON-FORMULARY) (Simvastatin 20 MG) PO SCH (21:36)
[2016-10-08] MEDS: ARIPiprazole 5 MG TABLET (FP) PO SCH (09:58)
[2016-10-08] MEDS: HYDROCHLOROTHIAZIDE 25 MG TABLET (FP) PO SCH (09:58)
[2016-10-08] MEDS: PRENATAL VITAMINS W/ FOLIC ACID TABLET (FP) PO SCH (09:58)
[2016-10-08] MEDS: CITALOPRAM HYDROBROMIDE 20 MG TABLET (FP) PO SCH (09:58)
[2016-10-08] MEDS: CLOPIDOGREL BISULFATE 75 MG TABLET (FP) PO SCH (09:58)
[2016-10-08] MEDS: ASPIRIN COATED 81 MG TABLET.EC PO SCH (09:58)
[2016-10-08] MEDS: METOPROLOL TARTRATE 25 MG TABLET (FP) PO SCH (09:58)
[2016-10-08] MEDS: NICOTINE 14 MG/24 HOURS TOPICAL PATCH TD SCH (09:59)
[2016-10-08] MEDS: amLODIPine BESYLATE 10 MG TABLET (FP) PO SCH (10:01)
[2016-10-08] MEDS: MIRTAZAPINE 15 MG TABLET (FP) PO SCH (21:02)
[2016-10-08] MEDS: THIAMINE HCL 100 MG TABLET (FP) PO SCH (21:02)
[2016-10-08] MEDS: PATIENT'S OWN MEDICATION (NON-FORMULARY) (Simvastatin 20 MG) PO SCH (21:02)
[2016-10-09] MEDS ORDERED: PT OWN MED DRAWER 7, Y5N ONE ×2 (08:54→19:54)
[2016-10-09] MEDS: METOPROLOL TARTRATE 25 MG TABLET (FP) PO SCH (09:54)
[2016-10-09] MEDS: CLOPIDOGREL BISULFATE 75 MG TABLET (FP) PO SCH (09:54)
[2016-10-09] MEDS: ASPIRIN COATED 81 MG TABLET.EC PO SCH (09:54)
[2016-10-09] MEDS: PRENATAL VITAMINS W/ FOLIC ACID TABLET (FP) PO SCH (09:54)
[2016-10-09] MEDS: CITALOPRAM HYDROBROMIDE 20 MG TABLET (FP) PO SCH (09:54)
[2016-10-09] MEDS: HYDROCHLOROTHIAZIDE 25 MG TABLET (FP) PO SCH (09:54)
[2016-10-09] MEDS: amLODIPine BESYLATE 10 MG TABLET (FP) PO SCH (09:55)
[2016-10-09] MEDS: ARIPiprazole 5 MG TABLET (FP) PO SCH (09:55)
[2016-10-09] MEDS: NICOTINE 14 MG/24 HOURS TOPICAL PATCH TD SCH (09:55)
[2016-10-09] MEDS: THIAMINE HCL 100 MG TABLET (FP) PO SCH (21:30)
[2016-10-09] MEDS: PATIENT'S OWN MEDICATION (NON-FORMULARY) (Simvastatin 20 MG) PO SCH (21:31)
[2016-10-09] MEDS: MIRTAZAPINE 15 MG TABLET (FP) PO SCH (21:31)
[2016-10-10] MEDS: PRENATAL VITAMINS W/ FOLIC ACID TABLET (FP) PO SCH (09:37)
[2016-10-10] MEDS: HYDROCHLOROTHIAZIDE 25 MG TABLET (FP) PO SCH (09:37)
[2016-10-10] MEDS: ASPIRIN COATED 81 MG TABLET.EC PO SCH (09:37)
[2016-10-10] MEDS: amLODIPine BESYLATE 10 MG TABLET (FP) PO SCH (09:38)
[2016-10-10] MEDS: CLOPIDOGREL BISULFATE 75 MG TABLET (FP) PO SCH (09:38)
[2016-10-10] MEDS: METOPROLOL TARTRATE 25 MG TABLET (FP) PO SCH (09:38)
[2016-10-10] MEDS: CITALOPRAM HYDROBROMIDE 20 MG TABLET (FP) PO SCH (09:38)
[2016-10-10] MEDS: ARIPiprazole 5 MG TABLET (FP) PO SCH (09:38)
[2016-10-10] MEDS: NICOTINE 14 MG/24 HOURS TOPICAL PATCH TD SCH (09:39)
[2016-10-10] MEDS: MIRTAZAPINE 15 MG TABLET (FP) PO SCH (21:07)
[2016-10-10] MEDS: THIAMINE HCL 100 MG TABLET (FP) PO SCH (21:07)
[2016-10-10] MEDS: PATIENT'S OWN MEDICATION (NON-FORMULARY) (Simvastatin 20 MG) PO SCH (21:08)
[2016-10-11 06:56] VITALS: BP 120/84; PULSE 60; TEMP 97.5
--- NOTE | 2016-10-11 09:00 | PN ---
Psychiatric Progress Note Vital Signs: Vital Signs Period Temp Pulse Resp BP Sys/Odell Pulse Ox Last 24 Hr 97.5 F 60-65 18-18 120-123/79-84 Date of Session: 10/11/16 Chief Complaint:: Discharge visit HPI: Patient addressed Alcohol and Cocaine dependence comorbid with Substance induced mood disorder. ROS: CAD. Current Medications: Active Medications Generic Name Dose Route Start Last Admin Trade Name Freq PRN Reason Stop Dose Admin Acetaminophen 650 mg 09/27/16 15:07 Tylenol - PO Q4H PRN PAIN Al Hydroxide/Mg Hydroxide 30 ml 09/27/16 15:07 Mylanta Oral Suspension - PO Q6H PRN DYSPEPSIA Amlodipine Besylate 10 mg 09/28/16 10:00 10/10/16 09:38 Norvasc - PO 10 mg DAILY NILO Administration Aripiprazole 5 mg 09/28/16 10:00 10/10/16 09:38 Abilify PO 5 mg DAILY NILO Administration Aspirin 81 mg 09/28/16 10:00 10/10/16 09:37 Ecotrin - PO 81 mg DAILY NILO Administration Citalopram Hydrobromide 20 mg 09/28/16 10:00 10/10/16 09:38 Celexa - PO 20 mg DAILY NILO Administration Clopidogrel Bisulfate 75 mg 09/27/16 17:30 10/10/16 09:38 Plavix - PO 75 mg DAILY NILO Administration Diphenhydramine HCl 50 mg 09/27/16 15:07 Benadryl - PO HSMR1 PRN INSOMNIA Eucalyptus/Menthol/Phenol/Sorbitol 1 each 09/27/16 15:07 Cepastat Lozenge - MM Q4H PRN SORE THROAT Guaifenesin 10 ml 09/27/16 15:07 Robitussin Dm - PO Q6H PRN COUGH Hydrochlorothiazide 25 mg 09/27/16 17:30 10/10/16 09:37 Hctz - PO 25 mg DAILY NILO Administration Hydroxyzine Pamoate 25 mg 09/27/16 15:07 Vistaril - PO Q4H PRN AGITATION Ibuprofen 400 mg 09/27/16 15:07 Motrin - PO Q6H PRN SEVERE PAIN Loperamide HCl 4 mg 09/27/16 15:07 Imodium - PO Q6H PRN DIARRHEA Magnesium Citrate 300 ml 09/27/16 15:07 Citroma - PO Q48H PRN CONSTIPATION Magnesium Hydroxide 30 ml 09/27/16 15:07 Milk Of Magnesia - PO DAILY PRN CONSTIPATION Metoprolol Tartrate 25 mg 09/28/16 10:00 10/10/16 09:38 Lopressor - PO 25 mg DAILY NILO Administration Mirtazapine 15 mg 09/28/16 22:00 10/10/16 21:07 Remeron - PO 15 mg HS NILO Administration Nicotine 14 mg 09/27/16 15:15 10/10/16 09:39 Nicoderm Patch - TD 14 mg DAILY NILO Administration Nicotine Polacrilex 2 mg 09/27/16 15:07 Nicorette Gum - BUC Q2H PRN NICOTINE REPLACEMENT RX Nitroglycerin 0.4 mg 09/27/16 15:15 Nitrostat - SL PRN NILO Non-Formulary Medication 20 mg 09/27/16 22:00 10/10/16 21:08 Simvastatin PO 20 mg HS NILO Administration Multivit/Folic Acid/Iron 1 tab 09/28/16 10:00 10/10/16 09:37 Vitamins (Sjr) - PO 1 tab DAILY NILO Administration Pseudoephedrine/Triprolidine 1 combo 09/27/16 15:07 Actifed - PO TID PRN NASAL CONGESTION Thiamine HCl 100 mg 09/27/16 22:00 10/10/16 21:07 Vitamin B1 - PO 100 mg HS NILO Administration Current Side Effect: No Lab tests ordered: No Lab tests reviewed: Yes Provider note:: Patient completed this program today.He has met his treatment goals and will continue to address his issues on outpatient basis at [facility].Patient reports finding Remeron 15 mg po hs,Celexa 20 mg po daily and Abilify 5 mg po daily helps to cope with depressed mood,anxiety,mood instability.Scripts for 30 days provided. Therapy provided focusing on support system,coping skills utilization to maintain recovery. Supportive therapy provided. Patient is stable for discharge today. Total face to face time:: 30 Mental Status Exam - Mental Status Exam Alert and Oriented to: Time, Place, Person Cognitive Function: Grossly Intact Patient Appearance: Well Groomed Mood: Hopeful, Euthymic Affect: Appropriate, Mood Congruent Patient Behavior: Appropriate, Cooperative Speech Pattern: Clear Voice Loudness: Normal Thought Process: Goal Oriented Thought Disorder: Not Present Hallucinations: Denies Suicidal Ideation: Denies Homicidal Ideation: Denies Insight/Judgement: Fair Sleep: Fair Appetite: Good Muscle strength/Tone: Normal Gait/Station: Normal Psychiatric Treatment Plan - Problem List (3) Cocaine dependence Qualifiers: Substance use status: in withdrawal Qualified Code(s): F14.23 - Cocaine dependence with withdrawal
[2016-10-11] MEDS ORDERED: PT OWN MED DRAWER 7, Y5N ONE (09:33)
[2016-10-11] MEDS: CLOPIDOGREL BISULFATE 75 MG TABLET (FP) PO SCH (09:37)
[2016-10-11] MEDS: CITALOPRAM HYDROBROMIDE 20 MG TABLET (FP) PO SCH (09:37)
[2016-10-11] MEDS: HYDROCHLOROTHIAZIDE 25 MG TABLET (FP) PO SCH (09:37)
[2016-10-11] MEDS: PRENATAL VITAMINS W/ FOLIC ACID TABLET (FP) PO SCH (09:37)
[2016-10-11] MEDS: amLODIPine BESYLATE 10 MG TABLET (FP) PO SCH (09:37)
[2016-10-11] MEDS: NICOTINE 14 MG/24 HOURS TOPICAL PATCH TD SCH (09:38)
[2016-10-11] MEDS: ASPIRIN COATED 81 MG TABLET.EC PO SCH (09:38)
[2016-10-11] MEDS: METOPROLOL TARTRATE 25 MG TABLET (FP) PO SCH (09:38)
[2016-10-11] MEDS: ARIPiprazole 5 MG TABLET (FP) PO SCH (09:38)
== END 2016-10-11 10:05 | disposition home or self-care (01) | DRG 772 ==
LOC: YASAS 11:05 → Y3W 14:13
PROVIDERS: ADMIT Psychiatry & Neurology Psychiatry; ATTEND Psychiatry & Neurology Psychiatry
PROC: HZ42ZZZ Group Counseling for Substance Abuse Treatment, Cognitive-Behavioral (ICD-10-PCS; principal; 2016-09-27)
DX: F10.20 Alcohol dependence, uncomplicated (principal); F14.20 Cocaine dependence, uncomplicated; F17.210 Nicotine dependence, cigarettes, uncomplicated; F33.9 Major depressive disorder, recurrent, unspecified; I10 Essential (primary) hypertension; I25.10 Atherosclerotic heart disease of native coronary artery without angina pectoris; I69.354 Hemiplegia and hemiparesis following cerebral infarction affecting left non-dominant side; I73.9 Peripheral vascular disease, unspecified; E78.5 Hyperlipidemia, unspecified; R26.2 Difficulty in walking, not elsewhere classified; Z99.89 Dependence on other enabling machines and devices
CPT/HCPCS: 81003; 81015

== ENCOUNTER 2016-11-26 08:17 | Inpatient (IN) | payer OTHER ==
[2016-11-26 08:33] VITALS: BMI 25.0
--- NOTE | 2016-11-26 11:20 | HP ---
CIWA Score - CIWA Score Nausea/Vomitin Muscle Tremors: 3 Anxiety: 3 Agitation: 4-Moderately Restless Paroxysmal Sweats: 3 Orientation: 0-Oriented Tacttile Disturbances: 0-None Auditory Disturbances: 0-None Visual Disturbances: 0-None Headache: 0-None Present CIWA-Ar Total Score: 15 Admission ROS [facility] - HPI Chief Complaint: withdrawal sx Allergies/Adverse Reactions: Allergies Allergy/AdvReac Type Severity Reaction Status Date / Time No Known Allergies Allergy Verified 11/26/16 09:40 History of Present Illness: 56 years AA male with a long hx of alcohol and cocaine is admitted for detox. Pt has been admitted for previous detox and rehab, he reports up 5 years sobriety many years ago. Exam Limitations: No Limitations - Ebola screening Have you traveled outside of the country in the last 21 days: No Have you had contact with anyone from an Ebola affected area: No Have you been sick,other than usual withdrawal symptoms: No Do you have a fever: No - Review of Systems Constitutional: Diaphoresis, Weakness (left > right) EENT: reports: Dental Problems (NEEDS DENTAL WORK) Respiratory: reports: Shortness of Breath (CAD) Cardiac: reports: No Symptoms Reported GI: reports: Nausea, Abdominal cramping : reports: Frequency Musculoskeletal: reports: No Symptoms Reported Integumentary: reports: Sweating Neuro: reports: Pre-Existing Deficit, Tingling, Tremors, Weakness, Unsteady Gait Endocrine: reports: No Symptoms Reported Hematology: reports: No Symptoms Reported Psychiatric: reports: No Sypmtoms Reported, Orientated x3 Other Systems: Reviewed and Negative Patient History - Patient Medical History Hx Anemia: No Hx Asthma: No Hx Chronic Obstructive Pulmonary Disease (COPD): No Hx Cancer: No Hx Cardiac Disorders: Yes (angioplasty with 1 stent) Hx Congestive Heart Failure: No Hx Hypertension: Yes Hx Hypercholesterolemia: Yes (ON MED) Hx Pacemaker: No HX Cerebrovascular Accident: Yes (OLD WITH LEFT SIDE WEAKNESS 2011) Hx Seizures: No Hx Dementia: No Hx Diabetes: No Hx Gastrointestinal Disorders: No Hx Liver Disease: No Hx Genitourinary Disorders: No Hx Sexually Transmitted Disorders: No Hx Renal Disease (ESRD): No Hx Thyroid Disease: No Hx Human Immunodeficiency Virus (HIV): No Hx Hepatitis C: No Hx Depression: Yes Hx Suicide Attempt: No Hx Bipolar Disorder: No Hx Schizophrenia: No - Patient Surgical History Past Surgical History: Yes Hx Neurologic Surgery: No Hx Cataract Extraction: No Hx Cardiac Surgery: Yes (S/P ANGIOPLASTY WITH STENT // ONE STENT) Hx Lung Surgery: No Hx Breast Surgery: No Hx Breast Biopsy: No Hx Abdominal Surgery: No Hx Appendectomy: No Hx Cholecystectomy: No Hx Genitourinary Surgery: No Hx Section: No Hx Orthopedic Surgery: No Other Surgical History: PVD S/P STENT IN BOTH EXTREMITIES IN 2012 - PPD History Previous Implant?: Yes Documented Results: Negative w/proof Implanted On Prior [facility] Admission?: Yes Date: 09/15/16 Results: 0 mm PPD to be Administered?: No - Smoking Cessation Smoking history: Current every day smoker Have you smoked in the past 12 months: Yes Aproximately how many cigarettes per day: 3 Hx Chewing Tobacco Use: No Initiated information on smoking cessation: Yes 'Breaking Loose' booklet given: 11/26/16 - Substance & Tx. History Hx Alcohol Use: Yes Hx Substance Use: Yes Substance Use Type: Alcohol, Cocaine Hx Substance Use Treatment: Yes (DETOX AND REHAB 08/2016) - Substances Abused Crack Route: Smoking Frequency: Daily Amount used: $100 Age of first use: 28 Date of Last Use: 11/24/16 Alcohol-vodka/whisky/beer Route: Oral Frequency: Daily Amount used: 1 1/2 pts./2-6 pks. Age of first use: 17 Date of Last Use: 11/24/16 Family Disease History - Family Disease History Family Disease History: Heart Disease: Father (CO, ALCOHOL), Mother (HTN, ALCOHOL) Admission Physical Exam [facility] - Vital Signs Vital Signs: Vital Signs - 24 hr 11/26/16 08:31 Temperature 98.5 F Pulse Rate 64 Respiratory 18 Rate Blood Pressure 114/70 - Physical General Appearance: Yes: Sweating, Anxious HEENTM: Yes: Within Normal Limits Respiratory: Yes: Within Normal Limits, Chest Non-Tender, Lungs Clear, Normal Breath Sounds Neck: Yes: Within Normal Limits, Supple Breast: Yes: Breast Exam Deferred Cardiology: Yes: Regular Rhythm, Regular Rate, S1, S2 Abdominal: Yes: Normal Bowel Sounds, Non Tender, Soft Genitourinary: Yes: Within Normal Limits Back: Yes: Within Normal Limits Musculoskeletal: Yes: Muscle weakness, Other (AMBULATES WITH CANE) Extremities: Yes: Tremors Neurological: Yes: Fully Oriented, Alert, Numbness (S/P CVA), Sensory Deficit (S /P CVA) Integumentary: Yes: Normal Color, Dry, Warm Lymphatic: Yes: Within Normal Limits - Diagnostic (1) Nicotine dependence Current Visit: Yes Status: Acute Qualifiers: Nicotine product type: cigarettes Substance use status: in withdrawal Qualified Code(s): F17.213 - Nicotine dependence, cigarettes, with withdrawal; F17.213 - Nicotine dependence, cigarettes, with withdrawal (2) Alcohol dependence with uncomplicated withdrawal Current Visit: Yes Status: Chronic (3) CAD (coronary artery disease) Current Visit: Yes Status: Chronic Qualifiers: Coronary Disease-Associated Artery/Lesion type: [place] artery [place] vs. transplanted heart: [place] heart Associated angina: without angina Qualified Code(s): I25.10 - Atherosclerotic heart disease of [place] coronary artery without angina pectoris; I25.10 - Atherosclerotic heart disease of [place] coronary artery without angina pectoris; I25.10 - Atherosclerotic heart disease of [place] coronary artery without angina pectoris (4) Cocaine dependence Current Visit: Yes Status: Acute Qualifiers: Substance use status: uncomplicated Qualified Code(s): F14.20 - Cocaine dependence, uncomplicated; F14.20 - Cocaine dependence, uncomplicated; F14.20 - Cocaine dependence, uncomplicated (5) Essential (primary) hypertension Current Visit: Yes Status: Chronic (6) Hemiparesis affecting left side as late effect of cerebrovascular accident Current Visit: Yes Status: Chronic (7) Hypercholesteremia Current Visit: Yes Status: Chronic (8) S/P angioplasty with stent Current Visit: Yes Status: Chronic (9) Use of cane as ambulatory aid Current Visit: Yes Status: Chronic Cleared for Admission [facility] - Detox or Rehab [facility] Level of Care: Medically Managed Detox Regimen/Protocol: Librium [facility] Breath Alcohol Content Breath Alcohol Content: 0 Urine Drug Screen - Results Drug Screen Negative: No Urine Drug Screen Results: CRYSTAL-Cocaine
[2016-11-26] MEDS ORDERED: guaiFENesin/D-METHORPHAN HB 10 ML UNIT-DOSE CUPS PO PRN (11:49)
[2016-11-26] MEDS ORDERED: LOPERAMIDE HCL 2 MG CAPSULE PO PRN (11:49)
[2016-11-26] MEDS ORDERED: ACETAMINOPHEN 325 MG TABLET (FP) PO PRN (11:49)
[2016-11-26] MEDS ORDERED: MENTHOL/PHENOL 1 EACH UD MM PRN (11:49)
[2016-11-26] MEDS ORDERED: P-EPHED 60MG/TRIPROLIDI 2.5MG TABLET PO PRN (11:49)
[2016-11-26] MEDS ORDERED: MAG HYDROX/AL HYDROX/SIMETH 30 ML UNIT-DOSE CUP PO PRN (11:49)
[2016-11-26] MEDS ORDERED: MAGNESIUM HYDROX 2400MG/30ML ORAL SUSPENSION 30 ML CUP PO PRN (11:49)
[2016-11-26] MEDS ORDERED: MAGNESIUM CITRATE 300 ML BOTTLE PO PRN (11:49)
[2016-11-26] MEDS ORDERED: IBUPROFEN 400 MG TABLET (FP) PO PRN (11:49)
[2016-11-26] MEDS ORDERED: diphenhydrAMINE HCL 50 MG CAPSULE PO PRN (11:49)
[2016-11-26] MEDS ORDERED: NICOTINE POLACRILEX 2 MG GUM BUC PRN (11:49)
[2016-11-26] MEDS ORDERED: NITROGLYCERIN SUBLINGUAL 1/150 0.4 MG TAB SL SCH (12:00)
[2016-11-26] MEDS: chlordiazePOXIDE HCL 25 MG CAPSULE PO PRN (12:42)
[2016-11-26 14:28] LABS: HIV 1 & 2 AB NEGATIVE; HIV 1 AGp24 NEGATIVE
[2016-11-26] MEDS: chlordiazePOXIDE HCL 25 MG CAPSULE PO SCH ×2 (17:30→22:34)
[2016-11-26] MEDS: THIAMINE HCL 100 MG TABLET (FP) PO SCH (22:33)
[2016-11-26] MEDS: ATORVASTATIN CA 20 MG TABLET (FP) PO SCH (22:33)
[2016-11-26] MEDS: CLOPIDOGREL BISULFATE 75 MG TABLET (FP) PO SCH (22:33)
[2016-11-27 00:06] LABS: URINE APPEARANCE CLOUDY; URINE BILIRUBIN NEGATIVE (NEGATIVE); URINE BLOOD 1+ (NEGATIVE); URINE COLOR AMBER; URINE GLUCOSE (UA) NEGATIVE (NEGATIVE); URINE KETONE NEGATIVE (NEGATIVE); URINE NITRITE NEGATIVE (NEGATIVE); URINE PROTEIN NEGATIVE (NEGATIVE); URINE UROBILINOGEN 4.0 E.U/dl mg/dL (0.2-1.0)
[2016-11-27 00:30] LABS: URINE BACTERIA RARE /hpf (NONE SEEN); URINE MUCUS RARE; URINE RBC 58 /hpf (0-3); URINE WBC 254 /hpf (3-5)
[2016-11-27] MEDS: chlordiazePOXIDE HCL 25 MG CAPSULE PO PRN (05:41)
[2016-11-27] MEDS: chlordiazePOXIDE HCL 25 MG CAPSULE PO SCH ×4 (08:00→22:52)
[2016-11-27] MEDS: METOPROLOL TARTRATE 25 MG TABLET (FP) PO SCH (10:18)
[2016-11-27] MEDS: PRENATAL VITAMINS W/ FOLIC ACID TABLET (FP) PO SCH (10:18)
[2016-11-27] MEDS: HYDROCHLOROTHIAZIDE 25 MG TABLET (FP) PO SCH (10:18)
[2016-11-27] MEDS: amLODIPine BESYLATE 10 MG TABLET (FP) PO SCH (10:18)
[2016-11-27] MEDS: ASPIRIN 81 MG CHEWABLE TABLETS PO SCH (10:18)
[2016-11-27 10:24] LABS: MCH 30.6 pg (25.7-33.7); MCHC 32.2 g/dl (32.0-35.9); MEAN CELL VOLUME 95.2 fl (80-96); MEAN PLT VOLUME 8.7 fl (7.5-11.1); PLATELET COUNT 313 K/MM3 (134-434); RDW 13.1 % (11.9-15.9); WHITE BLOOD COUNT 12.3 K/mm3 (4.0-10.0)
[2016-11-27 10:56] LABS: ALBUMIN 4.1 g/dl (3.4-5.0); ALK PHOS 107 U/L (45-117); ANION GAP 9 (8-16); BILIRUBIN,TOTAL 0.8 mg/dL (0.2-1.0); CO2 31 mmol/L (21-32); CREATININE 1.2 mg/dL (0.7-1.3); GLUCOSE,RANDOM 91 mg/dL (74-106); SGOT/AST 17 U/L (15-37); SGPT/ALT 21 U/L (12-78); TOT PROT 8.5 g/dl (6.4-8.2)
[2016-11-27] MEDS ORDERED: FLU VACCINE QUAD 60 MCG/0.5 ML (MDV 17-18) IM ONE (12:00)
[2016-11-27 12:08] LABS: URINE LEUK ESTERASE 3+ (NEGATIVE)
--- NOTE | 2016-11-27 13:59 | CONSULT ---
[facility] Psychiatric Consult - Data Date of interview: 11/27/16 Admission source: [facility] Identifying data: Readmission to [facility] for this 56 y/o AA male seeking detox treatment at [address] [place] [address] for alcohol and cocaine dependence.Patient is ,a father of two,undomiciled (lives in [place]),unemployed,disabled and supported on SSI benefits. Substance Abuse History: Confirmed by patient. Smoking Cessation. Smoking history: Current every day smoker. Have you smoked in the past 12 months: Yes. Aproximately how many cigarettes per day: 3. Hx Chewing Tobacco Use: No. Initiated information on smoking cessation: Yes. 'Breaking Loose' booklet given : 11/26/16. - Substance & Tx. History. Hx Alcohol Use: Yes. Hx Substance Use : Yes. Substance Use Type: Alcohol, Cocaine. Hx Substance Use Treatment: Yes ( DETOX AND REHAB 08/2016). - Substances Abused. Crack. Route: Smoking. Frequency: Daily. Amount used: $100. Age of first use: 28. Date of Last Use: 11/24/16. Alcohol-vodka/whisky/beer. Route: Oral. Frequency: Daily. Amount used: 1 1/2 pts./2-6 pks. Age of first use: 17. Date of Last Use: 11/24 Medical History: Ambulates with a cane.Co-morbidities : hypertension,cardiac stent X 1,History of CVA with left sided weakness,peripheral vascular disease, coronary artery disease and hypercholesterolemia. Psychiatric History: Diagnosed with MDD.Prescribed abilify + citalopram + remeron (doses not recalled).Patient denies history of psychiatric hospitalizations.Non adherent to [facility]PD care.Mr Ospina used to be followed at the [facility] in [facility].He indicates that his medications refills are currently provided by a primary care doctor.No reported history of suicide attempts. Physical/Sexual Abuse/Trauma History: Patient denies. Additional Comment: Urine Drug Screen Results: CRYSTAL-Cocaine.Noted. Mental Status Exam - Mental Status Exam Alert and Oriented to: Time, Place, Person Cognitive Function: Grossly Intact Patient Appearance: Unkempt, Disheveled Mood: Nervous, Withdrawn Affect: Constricted Patient Behavior: Appropriate, Cooperative Speech Pattern: Clear Voice Loudness: Normal Thought Process: Intact, Goal Oriented Thought Disorder: Not Present Hallucinations: Denies Suicidal Ideation: Denies Homicidal Ideation: Denies Insight/Judgement: Poor Sleep: Poorly, Difficulty falling asleep Appetite: Fair Gait/Station: Other (uses a cane for ambulation.) Psychiatric Findings - Problem List ([place] 1, 2,3) (1) Alcohol dependence with uncomplicated withdrawal Current Visit: Yes Status: Acute (2) Cocaine dependence Current Visit: Yes Status: Acute Qualifiers: Substance use status: uncomplicated Qualified Code(s): F14.20 - Cocaine dependence, uncomplicated; F14.20 - Cocaine dependence, uncomplicated; F14.20 - Cocaine dependence, uncomplicated (3) Nicotine dependence Current Visit: Yes Status: Acute Qualifiers: Nicotine product type: cigarettes Substance use status: in withdrawal Qualified Code(s): F17.213 - Nicotine dependence, cigarettes, with withdrawal; F17.213 - Nicotine dependence, cigarettes, with withdrawal (4) Substance induced mood disorder Current Visit: Yes Status: Acute (5) Depressive disorder Current Visit: Yes Status: Chronic (6) CAD (coronary artery disease) Current Visit: Yes Status: Chronic Qualifiers: Coronary Disease-Associated Artery/Lesion type: [place] artery [place] vs. transplanted heart: [place] heart Associated angina: without angina Qualified Code(s): I25.10 - Atherosclerotic heart disease of [place] coronary artery without angina pectoris; I25.10 - Atherosclerotic heart disease of [place] coronary artery without angina pectoris; I25.10 - Atherosclerotic heart disease of [place] coronary artery without angina pectoris (7) Essential (primary) hypertension Current Visit: Yes Status: Chronic (8) Hemiparesis affecting left side as late effect of cerebrovascular accident Current Visit: Yes Status: Chronic (9) Hypercholesteremia Current Visit: Yes Status: Chronic (10) S/P angioplasty with stent Current Visit: No Status: Chronic (11) Use of cane as ambulatory aid Current Visit: Yes Status: Chronic (12) PVD (peripheral vascular disease) Current Visit: No Status: Chronic (13) Insomnia Current Visit: Yes Status: Acute - Initial Treatment Plan Initial Treatment Plan: Psychoeducation.Detoxification.Medications : abilify 5 mg po daily + celexa 20 mg po daily + remeron 7.5 mg po hs.Side effects/ benefits are discussed with patient.He agrees with this careplan.Observation.Pharmacy claims (as of 10/11/16) at [facility] are reviewed (medications verified).
--- NOTE | 2016-11-27 20:26 | PN ---
[facility] CIWA - CIWA Score Nausea/Vomitin Muscle Tremors: 4-Moderate,w/Arms Extend Anxiety: 3 Agitation: 2 Paroxysmal Sweats: No Perspiration Orientation: 2-Disoriented Date<2 days Tacttile Disturbances: 2-Mild Itch/Numbness/Burn Auditory Disturbances: 2-Mild Harshness/Frighten Visual Disturbances: 0-None Headache: 0-None Present CIWA-Ar Total Score: 18 S Progress Note (SOAP) Subjective: Nausea, Body Aches, Tremors, Diarrhea. Objective: PT. A & O X 2 (DISORIENTED ABOUT DAY / DATE). PT. OBSERVED AMBULATING ON UNIT WITH ASSISTANCE OF A CANE. NO ACUTE DISTRESS. 11/27/16 20:21 Vital Signs Temperature 98.4 F 11/27/16 18:22 Pulse Rate 71 11/27/16 18:22 Respiratory Rate 18 11/27/16 18:22 Blood Pressure 97/63 11/27/16 18:22 O2 Sat by Pulse Oximetry (%) Laboratory Tests 11/26/16 11/26/16 11/27/16 12:30 23:20 06:05 WBC 12.3 H RBC 4.99 Hgb 15.3 Hct 47.5 MCV 95.2 MCH 30.6 MCHC 32.2 RDW 13.1 Plt Count 313 D MPV 8.7 Sodium Potassium Chloride Carbon Dioxide Anion Gap BUN Creatinine Creat Clearance w eGFR Random Glucose Calcium Total Bilirubin AST ALT Alkaline Phosphatase Total Protein Albumin Urine Color Tressa Urine Appearance Cloudy Urine pH 6.0 [address] [place] 1.020 Urine Protein Negative Urine Glucose (UA) Negative Urine Ketones Negative Urine Blood 1+ H Urine Nitrite Negative Urine Bilirubin Negative Urine Urobilinogen 4.0 e.u/dl Ur Leukocyte Esterase 3+ H Urine RBC 58 Urine WBC 254 Ur Epithelial Cells Few Urine Bacteria Rare Urine Mucus Rare RPR Titer HIV 1&2 Antibody Screen Negative HIV P24 Antigen Negative 11/27/16 11/27/16 06:05 06:05 WBC RBC Hgb Hct MCV MCH MCHC RDW Plt Count MPV Sodium 137 Potassium 3.8 Chloride 97 L Carbon Dioxide 31 Anion Gap 9 BUN 13 Creatinine 1.2 Creat Clearance w eGFR > 60 Random Glucose 91 D Calcium 10.0 Total Bilirubin 0.8 AST 17 ALT 21 D Alkaline Phosphatase 107 Total Protein 8.5 H Albumin 4.1 Urine Color Urine Appearance Urine pH Ur Specific [place] Urine Protein Urine Glucose (UA) Urine Ketones Urine Blood Urine Nitrite Urine Bilirubin Urine Urobilinogen Ur Leukocyte Esterase Urine RBC Urine WBC Ur Epithelial Cells Urine Bacteria Urine Mucus RPR Titer Nonreactive HIV 1&2 Antibody Screen HIV P24 Antigen LABS NOTED. Assessment: 11/27/16 20:26 WITHDRAWAL SYMPTOMS. LEUKOCYTOSIS. Plan: CONTINUE DETOX. REPEAT UA WITH URINE C + S FOR ELEVATED ADMISSION UA WBC AND LEUKOCYTE ESTERASE LEVELS. START PROPHYLACTIC BACTRIM DS PO BID FOR POSSIBLE UTI. INCREASE DAILY PO FLUID INTAKE.
[2016-11-27] MEDS: SULFAMETHOXAZOLE/TRIMETHOPRIM 800MG/160MG D.S. TABLET PO SCH (22:51)
[2016-11-27] MEDS: THIAMINE HCL 100 MG TABLET (FP) PO SCH (22:51)
[2016-11-27] MEDS: CLOPIDOGREL BISULFATE 75 MG TABLET (FP) PO SCH (22:52)
[2016-11-27] MEDS: ATORVASTATIN CA 20 MG TABLET (FP) PO SCH (22:52)
[2016-11-27] MEDS: MIRTAZAPINE 15 MG TABLET (FP) PO SCH (22:52)
[2016-11-28] MEDS: chlordiazePOXIDE HCL 25 MG CAPSULE PO SCH ×2 (06:10→10:20)
[2016-11-28] MEDS: ASPIRIN 81 MG CHEWABLE TABLETS PO SCH (10:19)
[2016-11-28] MEDS: PRENATAL VITAMINS W/ FOLIC ACID TABLET (FP) PO SCH (10:19)
[2016-11-28] MEDS: SULFAMETHOXAZOLE/TRIMETHOPRIM 800MG/160MG D.S. TABLET PO SCH ×2 (10:19→22:42)
[2016-11-28] MEDS: CITALOPRAM HYDROBROMIDE 20 MG TABLET (FP) PO SCH (10:20)
[2016-11-28] MEDS: ARIPiprazole 5 MG TABLET (FP) PO SCH (10:20)
[2016-11-28] MEDS: amLODIPine BESYLATE 10 MG TABLET (FP) PO SCH (10:21)
[2016-11-28] MEDS: METOPROLOL TARTRATE 25 MG TABLET (FP) PO SCH (10:21)
[2016-11-28] MEDS: HYDROCHLOROTHIAZIDE 25 MG TABLET (FP) PO SCH (10:21)
--- NOTE | 2016-11-28 14:13 | PN ---
[facility] CIWA - CIWA Score Nausea/Vomitin-No Nausea/No Vomiting Muscle Tremors: 3 Anxiety: 4-Mod. Anxious/Guarded Agitation: 3 Paroxysmal Sweats: 3 Orientation: 0-Oriented Tacttile Disturbances: 0-None Auditory Disturbances: 0-None Visual Disturbances: 0-None Headache: 0-None Present CIWA-Ar Total Score: 13 S Progress Note (SOAP) Subjective: Anxiety,sweating,interrupted sleep,restless Objective: 11/28/16 14:12 Vital Signs - 8 hr 11/28/16 11/28/16 10:09 14:03 Temperature 95.3 F L 96.5 F L Pulse Rate 79 81 Respiratory 18 18 Rate Blood Pressure 95/67 114/79 Laboratory Last Values WBC 12.3 K/mm3 (4.0-10.0) H 11/27/16 06:05 RBC 4.99 M/mm3 (4.00-5.60) 11/27/16 06:05 Hgb 15.3 GM/dL (11.7-16.9) 11/27/16 06:05 Hct 47.5 % (35.4-49) 11/27/16 06:05 MCV 95.2 fl (80-96) 11/27/16 06:05 MCH 30.6 pg (25.7-33.7) 11/27/16 06:05 MCHC 32.2 g/dl (32.0-35.9) 11/27/16 06:05 RDW 13.1 % (11.9-15.9) 11/27/16 06:05 Plt Count 313 K/MM3 (134-434) D 11/27/16 06:05 MPV 8.7 fl (7.5-11.1) 11/27/16 06:05 Sodium 137 mmol/L (136-145) 11/27/16 06:05 Potassium 3.8 mmol/L (3.5-5.1) 11/27/16 06:05 Chloride 97 mmol/L (98-107) L 11/27/16 06:05 Carbon Dioxide 31 mmol/L (21-32) 11/27/16 06:05 Anion Gap 9 (8-16) 11/27/16 06:05 BUN 13 mg/dL (7-18) 11/27/16 06:05 Creatinine 1.2 mg/dL (0.7-1.3) 11/27/16 06:05 Creat Clearance w eGFR > 60 (>60) 11/27/16 06:05 Random Glucose 91 mg/dL (74-106) D 11/27/16 06:05 Calcium 10.0 mg/dL (8.5-10.1) 11/27/16 06:05 Total Bilirubin 0.8 mg/dL (0.2-1.0) 11/27/16 06:05 AST 17 U/L (15-37) 11/27/16 06:05 ALT 21 U/L (12-78) D 11/27/16 06:05 Alkaline Phosphatase 107 U/L (45-117) 11/27/16 06:05 Total Protein 8.5 g/dl (6.4-8.2) H 11/27/16 06:05 Albumin 4.1 g/dl (3.4-5.0) 11/27/16 06:05 Urine Color [place] 11/26/16 23:20 Urine Appearance Cloudy 11/26/16 23:20 Urine pH 6.0 (5.0-8.0) 11/26/16 23:20 Ur Specific [place] 1.020 (1.005-1.025) 11/26/16 23:20 Urine Protein Negative (NEGATIVE) 11/26/16 23:20 Urine Glucose (UA) Negative (NEGATIVE) 11/26/16 23:20 Urine Ketones Negative (NEGATIVE) 11/26/16 23:20 Urine Blood 1+ (NEGATIVE) H 11/26/16 23:20 Urine Nitrite Negative (NEGATIVE) 11/26/16 23:20 Urine Bilirubin Negative (NEGATIVE) 11/26/16 23:20 Urine Urobilinogen 4.0 e.u/dl mg/dL (0.2-1.0) 11/26/16 23:20 Ur Leukocyte Esterase 3+ (NEGATIVE) H 11/26/16 23:20 Urine RBC 58 /hpf (0-3) 11/26/16 23:20 Urine WBC 254 /hpf (3-5) 11/26/16 23:20 Ur Epithelial Cells Few /hpf (FEW) 11/26/16 23:20 Urine Bacteria Rare /hpf (NONE SEEN) 11/26/16 23:20 Urine Mucus Rare 11/26/16 23:20 RPR Titer Nonreactive (NONREACTIVE) 11/27/16 06:05 HIV 1&2 Antibody Screen Negative 11/26/16 12:30 HIV P24 Antigen Negative 11/26/16 12:30 labs noted repeat u/a Assessment: 11/28/16 14:13 Withdrawal sx. Plan: Continue detox
[2016-11-28 16:27] LABS: URINE APPEARANCE CLOUDY; URINE BILIRUBIN NEGATIVE (NEGATIVE); URINE BLOOD NEGATIVE (NEGATIVE); URINE COLOR AMBER; URINE GLUCOSE (UA) NEGATIVE (NEGATIVE); URINE KETONE NEGATIVE (NEGATIVE); URINE NITRITE NEGATIVE (NEGATIVE); URINE PROTEIN NEGATIVE (NEGATIVE); URINE UROBILINOGEN 4.0 E.U/dl mg/dL (0.2-1.0)
--- NOTE | 2016-11-28 17:35 | EKG ---
Test Reason : Blood Pressure : / mmHG Vent. Rate : 055 BPM Atrial Rate : 055 BPM P-R Int : 132 ms QRS Dur : 106 ms QT Int : 416 ms P-R-T Axes : -10 038 032 degrees QTc Int : 397 ms SINUS BRADYCARDIA MINIMAL VOLTAGE CRITERIA FOR LVH, MAY BE NORMAL VARIANT BORDERLINE ECG WHEN COMPARED WITH ECG OF 13-SEP-2016 14:07, NO SIGNIFICANT CHANGE WAS FOUND Confirmed by LUIS E JOHNSON MD ([id number]) on 11/28/2016 5:35:04 PM Referred By: Confirmed By:LUIS E JOHNSON MD
[2016-11-28] MEDS: chlordiazePOXIDE 5 MG CAPSULE PO SCH ×2 (17:50→22:42)
[2016-11-28 19:09] LABS: URINE LEUK ESTERASE 3+ (NEGATIVE)
[2016-11-28 20:11] LABS: CALCIUM OXALATE CRYSTALS MODERATE /hpf (NONE SEEN); URINE AMORPHOUS SEDIMENT MODERATE; URINE RBC 0-3 /hpf (0-3); URINE WBC 50-80 (3-5)
[2016-11-28] MEDS: THIAMINE HCL 100 MG TABLET (FP) PO SCH (22:41)
[2016-11-28] MEDS: ATORVASTATIN CA 20 MG TABLET (FP) PO SCH (22:41)
[2016-11-28] MEDS: CLOPIDOGREL BISULFATE 75 MG TABLET (FP) PO SCH (22:41)
[2016-11-28] MEDS: MIRTAZAPINE 15 MG TABLET (FP) PO SCH (22:42)
[2016-11-29] MEDS: chlordiazePOXIDE 5 MG CAPSULE PO SCH ×2 (05:18→10:45)
[2016-11-29] MEDS: amLODIPine BESYLATE 10 MG TABLET (FP) PO SCH (10:45)
[2016-11-29] MEDS: CITALOPRAM HYDROBROMIDE 20 MG TABLET (FP) PO SCH (10:45)
[2016-11-29] MEDS: PRENATAL VITAMINS W/ FOLIC ACID TABLET (FP) PO SCH (10:45)
[2016-11-29] MEDS: ASPIRIN 81 MG CHEWABLE TABLETS PO SCH (10:45)
[2016-11-29] MEDS: HYDROCHLOROTHIAZIDE 25 MG TABLET (FP) PO SCH (10:45)
[2016-11-29] MEDS: SULFAMETHOXAZOLE/TRIMETHOPRIM 800MG/160MG D.S. TABLET PO SCH ×2 (10:45→22:20)
[2016-11-29] MEDS: METOPROLOL TARTRATE 25 MG TABLET (FP) PO SCH (10:45)
[2016-11-29] MEDS: ARIPiprazole 5 MG TABLET (FP) PO SCH (12:28)
--- NOTE | 2016-11-29 12:35 | PN ---
[facility] Progress Note (SOAP) Subjective: DECREASED ANXIETY,SWEATS,TREMORS. FATIGUE. Objective: 11/29/16 12:34 Vital Signs Temperature 97.4 F L 11/29/16 10:59 Pulse Rate 87 11/29/16 10:59 Respiratory Rate 18 11/29/16 10:59 Blood Pressure 106/74 11/29/16 10:59 O2 Sat by Pulse Oximetry (%) Laboratory Last Values WBC 12.3 K/mm3 (4.0-10.0) H 11/27/16 06:05 RBC 4.99 M/mm3 (4.00-5.60) 11/27/16 06:05 Hgb 15.3 GM/dL (11.7-16.9) 11/27/16 06:05 Hct 47.5 % (35.4-49) 11/27/16 06:05 MCV 95.2 fl (80-96) 11/27/16 06:05 MCH 30.6 pg (25.7-33.7) 11/27/16 06:05 MCHC 32.2 g/dl (32.0-35.9) 11/27/16 06:05 RDW 13.1 % (11.9-15.9) 11/27/16 06:05 Plt Count 313 K/MM3 (134-434) D 11/27/16 06:05 MPV 8.7 fl (7.5-11.1) 11/27/16 06:05 Sodium 137 mmol/L (136-145) 11/27/16 06:05 Potassium 3.8 mmol/L (3.5-5.1) 11/27/16 06:05 Chloride 97 mmol/L (98-107) L 11/27/16 06:05 Carbon Dioxide 31 mmol/L (21-32) 11/27/16 06:05 Anion Gap 9 (8-16) 11/27/16 06:05 BUN 13 mg/dL (7-18) 11/27/16 06:05 Creatinine 1.2 mg/dL (0.7-1.3) 11/27/16 06:05 Creat Clearance w eGFR > 60 (>60) 11/27/16 06:05 Random Glucose 91 mg/dL (74-106) D 11/27/16 06:05 Calcium 10.0 mg/dL (8.5-10.1) 11/27/16 06:05 Total Bilirubin 0.8 mg/dL (0.2-1.0) 11/27/16 06:05 AST 17 U/L (15-37) 11/27/16 06:05 ALT 21 U/L (12-78) D 11/27/16 06:05 Alkaline Phosphatase 107 U/L (45-117) 11/27/16 06:05 Total Protein 8.5 g/dl (6.4-8.2) H 11/27/16 06:05 Albumin 4.1 g/dl (3.4-5.0) 11/27/16 06:05 Urine Color [place] 11/28/16 14:40 Urine Appearance Cloudy 11/28/16 14:40 Urine pH 6.0 (5.0-8.0) 11/28/16 14:40 Ur Specific [place] 1.020 (1.005-1.025) 11/28/16 14:40 Urine Protein Negative (NEGATIVE) 11/28/16 14:40 Urine Glucose (UA) Negative (NEGATIVE) 11/28/16 14:40 Urine Ketones Negative (NEGATIVE) 11/28/16 14:40 Urine Blood Negative (NEGATIVE) 11/28/16 14:40 Urine Nitrite Negative (NEGATIVE) 11/28/16 14:40 Urine Bilirubin Negative (NEGATIVE) 11/28/16 14:40 Urine Urobilinogen 4.0 e.u/dl mg/dL (0.2-1.0) 11/28/16 14:40 Ur Leukocyte Esterase 3+ (NEGATIVE) H 11/28/16 14:40 Urine RBC 0-3 /hpf (0-3) 11/28/16 14:40 Urine WBC 50-80 (3-5) 11/28/16 14:40 Ur Epithelial Cells 0-3 /HPF 11/28/16 14:40 Calcium Oxalate Crystal Moderate /hpf (NONE SEEN) 11/28/16 14:40 Amorphous Sediment Moderate 11/28/16 14:40 Urine Bacteria Rare /hpf (NONE SEEN) 11/26/16 23:20 Urine Mucus Rare 11/26/16 23:20 RPR Titer Nonreactive (NONREACTIVE) 11/27/16 06:05 HIV 1&2 Antibody Screen Negative 11/26/16 12:30 HIV P24 Antigen Negative 11/26/16 12:30 LABS NOTED WBC IN UA IMPROVED UC PENDING--PT ON BACTRIM Assessment: 11/29/16 12:35 WITHDRAWAL SX Plan: CONTINUE DETOX UA;UC TODAY
[2016-11-29] MEDS: chlordiazePOXIDE HCL 10 MG CAPSULE PO SCH ×2 (17:00→22:20)
[2016-11-29] MEDS: ATORVASTATIN CA 20 MG TABLET (FP) PO SCH (22:20)
[2016-11-29] MEDS: CLOPIDOGREL BISULFATE 75 MG TABLET (FP) PO SCH (22:20)
[2016-11-29] MEDS: THIAMINE HCL 100 MG TABLET (FP) PO SCH (22:20)
[2016-11-29] MEDS: MIRTAZAPINE 15 MG TABLET (FP) PO SCH (22:22)
[2016-11-30] MEDS: chlordiazePOXIDE HCL 10 MG CAPSULE PO SCH (05:40)
[2016-11-30 10:14] VITALS: BP 114/66; PULSE 83; TEMP 97.8
[2016-11-30] MEDS: amLODIPine BESYLATE 10 MG TABLET (FP) PO SCH (10:33)
[2016-11-30] MEDS: HYDROCHLOROTHIAZIDE 25 MG TABLET (FP) PO SCH (10:33)
[2016-11-30] MEDS: ASPIRIN 81 MG CHEWABLE TABLETS PO SCH (10:33)
[2016-11-30] MEDS: CITALOPRAM HYDROBROMIDE 20 MG TABLET (FP) PO SCH (10:34)
[2016-11-30] MEDS: PRENATAL VITAMINS W/ FOLIC ACID TABLET (FP) PO SCH (10:34)
[2016-11-30] MEDS: SULFAMETHOXAZOLE/TRIMETHOPRIM 800MG/160MG D.S. TABLET PO SCH (10:34)
[2016-11-30] MEDS: ARIPiprazole 5 MG TABLET (FP) PO SCH (10:34)
[2016-11-30] MEDS: METOPROLOL TARTRATE 25 MG TABLET (FP) PO SCH (10:35)
--- NOTE | 2016-11-30 12:17 | DS ---
[facility] Detox Discharge Summary Admission Date: 11/26/16 Discharge Date: 11/30/16 - History Present History: Alcohol Dependence, Cocaine Dependence Additional Comments: PATIENT ADVISED TO CONSIDER LOCAL 12-STEP /NA /AA OUTPATIENT SUPPORT GROUPS FOR AFTERCARE. PATIENT WAS DISCHARGED FROM DETOX UNIT IN STABLE MEDICAL CONDITION. Pertinent Past History: HTN, History of CVA, CAD, History of Angioplasty w/ stent, Use of Cane as an Ambulatory Aid, PVD, Depression, Insomnia, Hypercholesterolemia Nicotine dependence, Hemiparesis Affecting Left side of body due to CVA. - Physical Exam Results Vital Signs: Vital Signs Temperature 97.8 F 11/30/16 10:13 Pulse Rate 83 11/30/16 10:13 Respiratory Rate 18 11/30/16 10:13 Blood Pressure 114/66 11/30/16 10:13 O2 Sat by Pulse Oximetry (%) Pertinent Admission Physical Exam Findings: WITHDRAWAL SYMPTOMS. Laboratory Tests 11/26/16 11/26/16 11/27/16 12:30 23:20 06:05 WBC 12.3 H RBC 4.99 Hgb 15.3 Hct 47.5 MCV 95.2 MCH 30.6 MCHC 32.2 RDW 13.1 Plt Count 313 D MPV 8.7 Sodium Potassium Chloride Carbon Dioxide Anion Gap BUN Creatinine Creat Clearance w eGFR Random Glucose Calcium Total Bilirubin AST ALT Alkaline Phosphatase Total Protein Albumin Urine Color [place] Urine Appearance Cloudy Urine pH 6.0 Ur Specific [place] 1.020 Urine Protein Negative Urine Glucose (UA) Negative Urine Ketones Negative Urine Blood 1+ H Urine Nitrite Negative Urine Bilirubin Negative Urine Urobilinogen 4.0 e.u/dl Ur Leukocyte Esterase 3+ H Urine RBC 58 Urine WBC 254 Ur Epithelial Cells Few Calcium Oxalate Crystal Amorphous Sediment Urine Bacteria Rare Urine Mucus Rare RPR Titer HIV 1&2 Antibody Screen Negative HIV P24 Antigen Negative 11/27/16 11/27/16 11/28/16 06:05 06:05 14:40 WBC RBC Hgb Hct MCV MCH MCHC RDW Plt Count MPV Sodium 137 Potassium 3.8 Chloride 97 L Carbon Dioxide 31 Anion Gap 9 BUN 13 Creatinine 1.2 Creat Clearance w eGFR > 60 Random Glucose 91 D Calcium 10.0 Total Bilirubin 0.8 AST 17 ALT 21 D Alkaline Phosphatase 107 Total Protein 8.5 H Albumin 4.1 Urine Color [place] Urine Appearance Cloudy Urine pH 6.0 Ur Specific [place] 1.020 Urine Protein Negative Urine Glucose (UA) Negative Urine Ketones Negative Urine Blood Negative Urine Nitrite Negative Urine Bilirubin Negative Urine Urobilinogen 4.0 e.u/dl Ur Leukocyte Esterase 3+ H Urine RBC 0-3 Urine WBC 50-80 Ur Epithelial Cells 0-3 Calcium Oxalate Crystal Moderate Amorphous Sediment Moderate Urine Bacteria Urine Mucus RPR Titer Nonreactive HIV 1&2 Antibody Screen HIV P24 Antigen LABS NOTED. - Treatment Hospital Course: Detox Protocol Followed, Detoxed Safely, Responded well, Discharged Condition Good Patient has Accepted a Rehab Referral to: NO. PT ADVISED TO CONSIDER LOCAL 12- STEP/NA/AA OUTPATIENT SUPPORT GROUPS. - Medication Discharge Medications: Ambulatory Orders Aripiprazole [Abilify -] 5 mg PO DAILY 09/13/16 Citalopram Hydrobromide [Celexa -] 20 mg PO DAILY #30 tab 10/11/16 Mirtazapine [Remeron -] 15 mg PO HS #30 tablet 10/11/16 Aripiprazole [Abilify] 5 mg PO DAILY #30 tablet 11/27/16 Citalopram Hydrobromide [Celexa -] 20 mg PO DAILY #30 tablet 11/27/16 Mirtazapine [Remeron -] 15 mg PO HS #30 tablet 11/27/16 Amlodipine Besylate [Norvasc -] 10 mg PO DAILY #30 tab 11/30/16 Aspirin [ASA -] 81 mg PO DAILY #30 tab 11/30/16 Clopidogrel Bisulfate [Plavix -] 75 mg PO HS #30 mg 11/30/16 Hydrochlorothiazide 25 mg PO DAILY #30 tab 11/30/16 Metoprolol Tartrate [Lopressor -] 25 mg PO DAILY #30 tab 11/30/16 Nitroglycerin [Nitrostat] 0.4 mg SL PRN #30 tab 11/30/16 Simvastatin [Zocor -] 20 mg PO HS #30 tab 11/30/16 - Diagnosis (1) Alcohol dependence with uncomplicated withdrawal Current Visit: Yes Status: Acute (2) Cocaine dependence Current Visit: Yes Status: Acute Qualifiers: Substance use status: uncomplicated Qualified Code(s): F14.20 - Cocaine dependence, uncomplicated; F14.20 - Cocaine dependence, uncomplicated; F14.20 - Cocaine dependence, uncomplicated (3) Insomnia Current Visit: Yes Status: Acute Qualifiers: Insomnia type: unspecified Qualified Code(s): G47.00 - Insomnia, unspecified; G47.00 - Insomnia, unspecified (4) Nicotine dependence Current Visit: Yes Status: Acute Qualifiers: Nicotine product type: cigarettes Substance use status: in withdrawal Qualified Code(s): F17.213 - Nicotine dependence, cigarettes, with withdrawal; F17.213 - Nicotine dependence, cigarettes, with withdrawal (5) Substance induced mood disorder Current Visit: Yes Status: Acute (6) CAD (coronary artery disease) Current Visit: Yes Status: Chronic Qualifiers: Coronary Disease-Associated Artery/Lesion type: [place] artery [place] vs. transplanted heart: [place] heart Associated angina: without angina Qualified Code(s): I25.10 - Atherosclerotic heart disease of [place] coronary artery without angina pectoris; I25.10 - Atherosclerotic heart disease of [place] coronary artery without angina pectoris; I25.10 - Atherosclerotic heart disease of [place] coronary artery without angina pectoris (7) Depressive disorder Current Visit: Yes Status: Chronic (8) Essential (primary) hypertension Current Visit: Yes Status: Chronic (9) Hemiparesis affecting left side as late effect of cerebrovascular accident Current Visit: Yes Status: Chronic (10) Hypercholesteremia Current Visit: Yes Status: Chronic (11) PVD (peripheral vascular disease) Current Visit: Yes Status: Chronic (12) S/P angioplasty with stent Current Visit: Yes Status: Chronic (13) Use of cane as ambulatory aid Current Visit: Yes Status: Chronic (14) MDD (major depressive disorder), recurrent episode Current Visit: No Status: Acute - AMA Did Patient Leave Against Medical Advice: No
== END 2016-11-30 11:17 | disposition home or self-care (01) | DRG 774 ==
LOC: YASAS 08:17 → Y3N 11:40
PROVIDERS: ADMIT Internal Medicine; ATTEND Internal Medicine
PROC: HZ2ZZZZ Detoxification Services for Substance Abuse Treatment (ICD-10-PCS; principal; 2016-11-26)
DX: F10.230 Alcohol dependence with withdrawal, uncomplicated (principal); F14.20 Cocaine dependence, uncomplicated; F17.213 Nicotine dependence, cigarettes, with withdrawal; F19.24 Other psychoactive substance dependence with psychoactive substance-induced mood disorder; F33.9 Major depressive disorder, recurrent, unspecified; I10 Essential (primary) hypertension; I25.10 Atherosclerotic heart disease of native coronary artery without angina pectoris; E78.00 Pure hypercholesterolemia, unspecified; G47.00 Insomnia, unspecified; I69.354 Hemiplegia and hemiparesis following cerebral infarction affecting left non-dominant side; D72.829 Elevated white blood cell count, unspecified; Z95.5 Presence of coronary angioplasty implant and graft; R26.2 Difficulty in walking, not elsewhere classified; Z99.89 Dependence on other enabling machines and devices; I73.9 Peripheral vascular disease, unspecified
CPT/HCPCS: 36415; 80053; 81003; 81015; 85027; 86593; 87086; 87389; 90688; 93005; 93010; G0008

== ENCOUNTER 2017-06-29 10:59 | Inpatient (IN) | payer OTHER ==
[2017-06-29 11:47] VITALS: BMI 26.3
--- NOTE | 2017-06-29 13:22 | HP ---
CIWA Score - CIWA Score Nausea/Vomitin Muscle Tremors: 3 Anxiety: 3 Agitation: 2 Paroxysmal Sweats: 1-Minimal Palms Moist Orientation: 0-Oriented Tacttile Disturbances: 1-Very Mild Itch/Numbness Auditory Disturbances: 1-Very Mild Visual Disturbances: 0-None Headache: 2-Mild CIWA-Ar Total Score: 16 Admission ROS BHS - HPI Chief Complaint: i need help to stop drinking alcohol and cocaine Allergies/Adverse Reactions: Allergies Allergy/AdvReac Type Severity Reaction Status Date / Time No Known Allergies Allergy Verified 06/29/17 13:05 History of Present Illness: this 56 years old male with alcohol and cocaine dependence,seeking detox,last detox 11/26/16 to 11/30/16 hypertension,hypercholesterolemia,s/p angioplasty with stent,s/p cva with right side weakness nicotiine dependence longest period of sobriety 6 months ago ambulation with cane - Ebola screening Have you traveled outside of the country in the last 21 days: No Have you had contact with anyone from an Ebola affected area: No Have you been sick,other than usual withdrawal symptoms: No Do you have a fever: No - Review of Systems Constitutional: Loss of Appetite, Malaise, Night Sweats, Changes in sleep, Weakness, Unintentional Wgt. Loss EENT: reports: Nose Congestion Respiratory: reports: No Symptoms reported Cardiac: reports: No Symptoms Reported, Other (history of angioplasty with stent ) GI: reports: Diarrhea, Nausea, Vomiting, Abdominal cramping : reports: No Symptoms Reported Musculoskeletal: reports: Back Pain, Muscle Pain Integumentary: reports: Dryness Neuro: reports: Headache, Tremors, Weakness (right side weakness) Endocrine: reports: No Symptoms Reported Hematology: reports: No Symptoms Reported Psychiatric: reports: No Sypmtoms Reported, Judgement Intact, Mood/Affect Appropiate, Anxious, Depressed Other Systems: Reviewed and Negative Patient History - Patient Medical History Hx Anemia: No Hx Asthma: No Hx Chronic Obstructive Pulmonary Disease (COPD): No Hx Cancer: No Hx Cardiac Disorders: Yes (angioplasty with 1 stent) Hx Congestive Heart Failure: No Hx Hypertension: Yes Hx Hypercholesterolemia: Yes (ON MED) Hx Pacemaker: No HX Cerebrovascular Accident: Yes (OLD WITH RIGHT SIDE WEAKNESS 2011) Hx Seizures: No Hx Dementia: No Hx Diabetes: No Hx Gastrointestinal Disorders: No Hx Liver Disease: No Hx Genitourinary Disorders: No Hx Sexually Transmitted Disorders: No Hx Renal Disease (ESRD): No Hx Thyroid Disease: No Hx Human Immunodeficiency Virus (HIV): No (LAST 2016) Hx Hepatitis C: No Hx Depression: Yes Hx Suicide Attempt: No Hx Bipolar Disorder: No Hx Schizophrenia: No Other Medical History: NO SUICIDAL,NO HOMICIDAL,AMBULATION WITH CANE - Patient Surgical History Past Surgical History: Yes Hx Neurologic Surgery: No Hx Cataract Extraction: No Hx Cardiac Surgery: Yes (S/P ANGIOPLASTY WITH STENT 08/27/11 ONE STENT) Hx Lung Surgery: No Hx Breast Surgery: No Hx Breast Biopsy: No Hx Abdominal Surgery: No Hx Appendectomy: No Hx Cholecystectomy: No Hx Genitourinary Surgery: No Hx Section: No Hx Orthopedic Surgery: No Other Surgical History: PVD S/P STENT IN BOTH EXTREMITIES IN 2012 - PPD History Previous Implant?: Yes Documented Results: Negative w/proof Implanted On Prior [facility] Admission?: Yes Date: 09/15/16 Results: 0 mm PPD to be Administered?: No - Smoking Cessation Smoking history: Current every day smoker Have you smoked in the past 12 months: Yes Aproximately how many cigarettes per day: 3 Hx Chewing Tobacco Use: No Initiated information on smoking cessation: Yes 'Breaking Loose' booklet given: 06/29/17 - Substance & Tx. History Hx Alcohol Use: Yes Hx Substance Use: Yes Substance Use Type: Alcohol, Cocaine Hx Substance Use Treatment: Yes ([facility] 11/26/16 TO 11/30/16) - Substances Abused Alcohol Route: Oral Frequency: Daily Amount used: 6 40 OZ BEERS Age of first use: 17 Date of Last Use: 06/29/17 Crack Route: Smoking Frequency: Daily Amount used: $50 Age of first use: 23 Date of Last Use: 06/28/17 Family Disease History - Family Disease History Family Disease History: Heart Disease: Father ([place], ALCOHOL), Mother (HTN, ALCOHOL) Admission Physical Exam S - Vital Signs Vital Signs: Vital Signs - 24 hr 06/29/17 11:45 Temperature 96.4 F L Pulse Rate 52 L Respiratory 18 Rate Blood Pressure 120/73 - Physical General Appearance: Yes: Moderate Distress, Tremorous, Irritable, Sweating, Anxious HEENTM: Yes: Normal ENT Inspection, BRENDEN, Pharynx Normal Respiratory: Yes: Lungs Clear, Normal Breath Sounds, No Respiratory Distress Neck: Yes: Within Normal Limits, Supple, Trachea in good position Breast: Yes: Within Normal Limits Cardiology: Yes: Within Normal Limits, Regular Rhythm, Regular Rate, S1, S2 Abdominal: Yes: Within Normal Limits, Normal Bowel Sounds, Non Tender, Soft Genitourinary: Yes: Within Normal Limits Back: Yes: Muscle Spasm Musculoskeletal: Yes: Back pain, Muscle Pain Extremities: Yes: Tremors (WEAKNESS OF RIGHT EXTREMITY) Neurological: Yes: senior bioinformatics specialist II-XII NML intact, Alert, Motor Strength 5/5 Integumentary: Yes: Dry Lymphatic: Yes: Within Normal Limits - Diagnostic (1) Alcohol dependence with uncomplicated withdrawal Current Visit: No Status: Acute (2) Anxiety and depression Current Visit: No Status: Acute (3) Cocaine dependence Current Visit: No Status: Acute Qualifiers: Substance use status: uncomplicated Qualified Code(s): F14.20 - Cocaine dependence, uncomplicated (4) Insomnia Current Visit: No Status: Acute Qualifiers: Insomnia type: unspecified Qualified Code(s): G47.00 - Insomnia, unspecified (5) Nicotine dependence Current Visit: No Status: Acute Qualifiers: Nicotine product type: cigarettes Substance use status: in withdrawal Qualified Code(s): F17.213 - Nicotine dependence, cigarettes, with withdrawal (6) CAD (coronary artery disease) Current Visit: No Status: Chronic Qualifiers: Coronary Disease-Associated Artery/Lesion type: [place] artery [place] vs. transplanted heart: [place] heart Associated angina: without angina Qualified Code(s): I25.10 - Atherosclerotic heart disease of [place] coronary artery without angina pectoris (7) Hypercholesteremia Current Visit: No Status: Chronic (8) PVD (peripheral vascular disease) Current Visit: No Status: Chronic (9) S/P angioplasty with stent Current Visit: No Status: Chronic (10) Use of cane as ambulatory aid Current Visit: No Status: Chronic Cleared for Admission S - Detox or Rehab [facility] Level of Care: Medically Managed Detox Regimen/Protocol: Librium S Breath Alcohol Content Breath Alcohol Content: 0 Urine Drug Screen - Results Drug Screen Negative: No Urine Drug Screen Results: CRYSTAL-Cocaine
[2017-06-29] MEDS ORDERED: MAGNESIUM CITRATE 300 ML BOTTLE PO PRN (13:49)
[2017-06-29] MEDS ORDERED: MENTHOL/PHENOL 1 EACH UD MM PRN (13:49)
[2017-06-29] MEDS ORDERED: guaiFENesin/D-METHORPHAN HB 10 ML UNIT-DOSE CUPS PO PRN (13:49)
[2017-06-29] MEDS ORDERED: LOPERAMIDE HCL 2 MG CAPSULE PO PRN (13:49)
[2017-06-29] MEDS ORDERED: IBUPROFEN 400 MG TABLET (FP) PO PRN (13:49)
[2017-06-29] MEDS ORDERED: chlordiazePOXIDE HCL 25 MG CAPSULE PO PRN (13:49)
[2017-06-29] MEDS ORDERED: MAG HYDROX/AL HYDROX/SIMETH 30 ML UNIT-DOSE CUP PO PRN (13:49)
[2017-06-29] MEDS ORDERED: hydrOXYzine PAMOATE 50 MG CAPSULE (FP) PO PRN (13:49)
[2017-06-29] MEDS ORDERED: P-EPHED 60MG/TRIPROLIDI 2.5MG TABLET PO PRN (13:49)
[2017-06-29] MEDS ORDERED: MAGNESIUM HYDROX 2400MG/30ML ORAL SUSPENSION 30 ML CUP PO PRN (13:49)
[2017-06-29] MEDS ORDERED: ACETAMINOPHEN 325 MG TABLET (FP) PO PRN (13:49)
[2017-06-29] MEDS ORDERED: NITROGLYCERIN SUBLINGUAL 1/150 0.4 MG TAB SL SCH (14:00)
[2017-06-29] MEDS ORDERED: chlordiazePOXIDE HCL 25 MG CAPSULE PO ONE (15:00)
[2017-06-29] MEDS: NICOTINE 14 MG/24 HOURS TOPICAL PATCH TD SCH (15:27)
[2017-06-29] MEDS: chlordiazePOXIDE HCL 25 MG CAPSULE PO SCH ×2 (17:20→22:07)
[2017-06-29] MEDS ORDERED: MELATONIN 5 MG TABLETS PO PRN (22:00)
[2017-06-29] MEDS: THIAMINE HCL 100 MG TABLET (FP) PO SCH (22:07)
[2017-06-29] MEDS: CLOPIDOGREL BISULFATE 75 MG TABLET (FP) PO SCH (22:07)
[2017-06-29 23:34] LABS: URINE APPEARANCE CLOUDY; URINE BILIRUBIN NEGATIVE (<2.0 mg/dL); URINE COLOR YELLOW; URINE GLUCOSE (UA) NEGATIVE (NEGATIVE); URINE KETONE NEGATIVE (NEGATIVE); URINE NITRITE NEGATIVE (NEGATIVE); URINE PROTEIN NEGATIVE (NEGATIVE); URINE UROBILINOGEN 4.0 E.U/dl mg/dL (0.2-1.0)
[2017-06-29 23:36] LABS: URINE LEUK ESTERASE 3+ (NEGATIVE)
[2017-06-29 23:39] LABS: EPI CELLS RARE /HPF (FEW); URINE MUCUS RARE
[2017-06-30] MEDS: chlordiazePOXIDE HCL 25 MG CAPSULE PO SCH ×4 (05:18→22:48)
--- NOTE | 2017-06-30 09:55 | CONSULT ---
[facility] Psychiatric Consult - Data Date of interview: 06/30/17 Admission source: [facility] Identifying data: Patient is a 56 year old male single male, father of two, unemployed (receiving disability), and currently homeless. This is one of multiple admissions for patient. Pt. admitted to for alcohol and cocaine dependence. Substance Abuse History: Following information confirmed with Mr. Ospina: Smoking Cessation. Smoking history: Current every day smoker. Have you smoked in the past 12 months: Yes. Aproximately how many cigarettes per day: 3. Hx Chewing Tobacco Use: No. Initiated information on smoking cessation: Yes. ' Breaking Loose' booklet given: 06/29/17. - Substance & Tx. History. Hx Alcohol Use: Yes. Hx Substance Use: Yes. Substance Use Type: Alcohol, Cocaine. Hx Substance Use Treatment: Yes ([facility] 11/26/16 TO 11/30/16). - Substances Abused. Alcohol. Route: Oral. Frequency: Daily. Amount used: 6 40 OZ BEERS. Age of first use: 17. Date of Last Use: 06/29/17. Crack. Route: Smoking. Frequency: Daily. Amount used: $50. Age of first use: 23. Date of Last Use: 06/28/17 Medical History: PVD S/P stent in both extremities in 2012, S/P angioplasty with 1 stent 08/27/2011. hypercholesterolemia, CVA with right side weakness in 2011 Psychiatric History: Patient denies h/o psychiatric hospitalization. Most recent OPD was at the [facility] in [place] (2017). States he is prescribed abilify 5mg + celexa 20mg + mirtzapine 15mg qhs. Patient receives his prescriptions from his PCP. Self reports diagnosis of depression and anxiety. Pt. denies h/o suicide attempt. Physical/Sexual Abuse/Trauma History: Denies. Mental Status Exam - Mental Status Exam Alert and Oriented to: Time, Place, Person Cognitive Function: Good Patient Appearance: Unkempt Mood: Euthymic Affect: Mood Congruent Patient Behavior: Cooperative Speech Pattern: Appropriate Voice Loudness: Normal Thought Process: Goal Oriented Thought Disorder: Not Present Hallucinations: Denies Suicidal Ideation: Denies Homicidal Ideation: Denies Insight/Judgement: Poor Sleep: Fair Appetite: Fair Muscle strength/Tone: Normal Gait/Station: Other (Patient ambulates with a cane.) Psychiatric Findings - Problem List ([place] 1, 2,3) (1) Alcohol dependence with uncomplicated withdrawal Current Visit: Yes Status: Acute (2) Cocaine dependence Current Visit: Yes Status: Acute Qualifiers: Substance use status: uncomplicated Qualified Code(s): F14.20 - Cocaine dependence, uncomplicated (3) Substance induced mood disorder Current Visit: Yes Status: Acute (4) Insomnia Current Visit: Yes Status: Acute Qualifiers: Insomnia type: unspecified Qualified Code(s): G47.00 - Insomnia, unspecified (5) Depressive disorder Current Visit: Yes Status: Chronic - Initial Treatment Plan Initial Treatment Plan: Psychoeducation provided. Detoxification provided. Abilify 5mg + celexa 20mg + mirtzapine 15mg qhs. Benefits and side effects discussed. Verbal consent given. Will continue to monitor.
[2017-06-30 10:04] LABS: HEMATOCRIT 41.3 % (35.4-49); HEMOGLOBIN 14.1 GM/dL (11.7-16.9); MCH 31.8 pg (25.7-33.7); MCHC 34.1 g/dl (32.0-35.9); MEAN CELL VOLUME 93.3 fl (80-96); MEAN PLT VOLUME 8.6 fl (7.5-11.1); PLATELET COUNT 295 K/MM3 (134-434); RBC 4.43 M/mm3 (4.00-5.60); RDW 13.1 % (11.9-15.9); WHITE BLOOD COUNT 10.8 K/mm3 (4.0-10.0)
[2017-06-30 10:12] LABS: CHLORIDE 103 mmol/L (98-107); POTASSIUM 3.6 mmol/L (3.5-5.1); SODIUM 140 mmol/L (136-145)
[2017-06-30 10:31] LABS: ALBUMIN 3.8 g/dl (3.4-5.0); ALK PHOS 99 U/L (45-117); ANION GAP 8 (8-16); BILIRUBIN,TOTAL 0.7 mg/dL (0.2-1.0); BLOOD UREA NITROGEN 15 mg/dL (7-18); CALCIUM 9.5 mg/dL (8.5-10.1); CO2 29 mmol/L (21-32); CREATININE 1.3 mg/dL (0.7-1.3); GLUCOSE,RANDOM 111 mg/dL (74-106); SGOT/AST 22 U/L (15-37); SGPT/ALT 21 U/L (12-78); TOT PROT 7.9 g/dl (6.4-8.2)
[2017-06-30] MEDS: ASPIRIN 81 MG CHEWABLE TABLETS PO SCH (10:37)
[2017-06-30] MEDS: PRENATAL VITAMINS W/ FOLIC ACID TABLET (FP) PO SCH (10:37)
[2017-06-30] MEDS: HYDROCHLOROTHIAZIDE 25 MG TABLET (FP) PO SCH (10:37)
[2017-06-30] MEDS: amLODIPine BESYLATE 10 MG TABLET (FP) PO SCH (10:38)
[2017-06-30] MEDS: ARIPiprazole 5 MG TABLET (FP) PO SCH (10:38)
[2017-06-30] MEDS: CITALOPRAM HYDROBROMIDE 20 MG TABLET (FP) PO SCH (10:38)
[2017-06-30] MEDS: NICOTINE 14 MG/24 HOURS TOPICAL PATCH TD SCH (10:38)
[2017-06-30] MEDS: METOPROLOL TARTRATE 25 MG TABLET (FP) PO SCH (10:38)
--- NOTE | 2017-06-30 11:46 | EKG ---
Test Reason : Blood Pressure : / mmHG Vent. Rate : 050 BPM Atrial Rate : 050 BPM P-R Int : 152 ms QRS Dur : 108 ms QT Int : 438 ms P-R-T Axes : 061 029 019 degrees QTc Int : 399 ms SINUS BRADYCARDIA OTHERWISE NORMAL ECG WHEN COMPARED WITH ECG OF 26-NOV-2016 12:46, NO SIGNIFICANT CHANGE WAS FOUND Confirmed by GARETH MONTAÑO MD ([id number]) on 06/30/2017 11:46:23 AM Referred By: Confirmed By:GARETH MONTAÑO MD
[2017-06-30] MEDS ORDERED: PNEUMOCOCCAL 23 VACCINE 0.5 ML VIAL IM ONE (12:00)
[2017-06-30] MEDS ORDERED: PNEUMOC 13-VAL CONJ-DIP CRM/PF 0.5 ML DISP.SYRIN IM ONE (12:00)
--- NOTE | 2017-06-30 12:49 | PN ---
S CIWA - CIWA Score Nausea/Vomitin Muscle Tremors: 2 Anxiety: 4-Mod. Anxious/Guarded Agitation: 1-Slight > Activity Paroxysmal Sweats: No Perspiration Orientation: 0-Oriented Tacttile Disturbances: 3-Moderate Itch/Numb/Burn Auditory Disturbances: 2-Mild Harshness/Frighten Visual Disturbances: 2-Mild Sensitivity Headache: 0-None Present CIWA-Ar Total Score: 17 BHS Progress Note (SOAP) Subjective: Fatigue, Tremors, Nausea, Interrupted Sleep. Objective: PATIENT A & O X 3, OBSERVED AMBULATING ON UNIT WITH ASSISTANCE OF A CANE. NO ACUTE DISTRESS. 06/30/17 12:50 Vital Signs Temperature 97.8 F 06/30/17 09:17 Pulse Rate 57 L 06/30/17 09:17 Respiratory Rate 20 06/30/17 09:17 Blood Pressure 111/73 06/30/17 09:17 O2 Sat by Pulse Oximetry (%) Laboratory Tests 06/29/17 06/29/17 06/30/17 14:00 Unknown 06:00 WBC 10.8 H RBC 4.43 Hgb 14.1 Hct 41.3 MCV 93.3 MCH 31.8 MCHC 34.1 RDW 13.1 Plt Count 295 MPV 8.6 Sodium Potassium Chloride Carbon Dioxide Anion Gap BUN Creatinine Creat Clearance w eGFR Random Glucose Calcium Total Bilirubin AST ALT Alkaline Phosphatase Total Protein Albumin Urine Color Yellow Urine Appearance Cloudy Urine pH 5.0 Ur Specific [place] 1.018 Urine Protein Negative Urine Glucose (UA) Negative Urine Ketones Negative Urine Blood 2+ H Urine Nitrite Negative Urine Bilirubin Negative Urine Urobilinogen 4.0 e.u/dl Ur Leukocyte Esterase 3+ H Urine WBC (Auto) 186 Urine RBC (Auto) 17 Ur Epithelial Cells Rare Urine Mucus Rare HIV 1&2 Antibody Screen Negative HIV P24 Antigen Negative 06/30/17 06:00 WBC RBC Hgb Hct MCV MCH MCHC RDW Plt Count MPV Sodium 140 Potassium 3.6 Chloride 103 Carbon Dioxide 29 Anion Gap 8 BUN 15 Creatinine 1.3 Creat Clearance w eGFR 57.10 Random Glucose 111 H D Calcium 9.5 Total Bilirubin 0.7 AST 22 D ALT 21 Alkaline Phosphatase 99 Total Protein 7.9 Albumin 3.8 Urine Color Urine Appearance Urine pH Ur Specific [place] Urine Protein Urine Glucose (UA) Urine Ketones Urine Blood Urine Nitrite Urine Bilirubin Urine Urobilinogen Ur Leukocyte Esterase Urine WBC (Auto) Urine RBC (Auto) Ur Epithelial Cells Urine Mucus HIV 1&2 Antibody Screen HIV P24 Antigen LABS NOTED. RPR RESULT PENDING. 06/30/17 12:53 Assessment: 06/30/17 12:50 WITHDRAWAL SYMPTOMS. Plan: CONTINUE DETOX. INCREASE DAILY PO FLUID INTAKE. WATER PITCHER FOR BEDSIDE. REPEAT UA WITH URINE C + S FOR ADMISSION UA ABNORMALITIES.
[2017-06-30 17:56] LABS: URINE APPEARANCE CLEAR; URINE BILIRUBIN NEGATIVE (<2.0 mg/dL); URINE COLOR YELLOW; URINE GLUCOSE (UA) NEGATIVE (NEGATIVE); URINE KETONE NEGATIVE (NEGATIVE); URINE NITRITE NEGATIVE (NEGATIVE); URINE PROTEIN NEGATIVE (NEGATIVE); URINE UROBILINOGEN 4.0 E.U/dl mg/dL (0.2-1.0)
[2017-06-30 17:59] LABS: URINE LEUK ESTERASE 2+ (NEGATIVE)
[2017-06-30 18:01] LABS: EPI CELLS RARE /HPF (FEW); URINE BACTERIA RARE /hpf (NONE SEEN); URINE MUCUS RARE
[2017-06-30] MEDS: CLOPIDOGREL BISULFATE 75 MG TABLET (FP) PO SCH (22:48)
[2017-06-30] MEDS: MIRTAZAPINE 15 MG TABLET (FP) PO SCH (22:48)
[2017-06-30] MEDS: THIAMINE HCL 100 MG TABLET (FP) PO SCH (22:49)
[2017-07-01] MEDS: chlordiazePOXIDE HCL 25 MG CAPSULE PO SCH ×2 (05:52→10:35)
[2017-07-01] MEDS: ARIPiprazole 5 MG TABLET (FP) PO SCH (10:35)
[2017-07-01] MEDS: ASPIRIN 81 MG CHEWABLE TABLETS PO SCH (10:35)
[2017-07-01] MEDS: METOPROLOL TARTRATE 25 MG TABLET (FP) PO SCH (10:35)
[2017-07-01] MEDS: HYDROCHLOROTHIAZIDE 25 MG TABLET (FP) PO SCH (10:35)
[2017-07-01] MEDS: CITALOPRAM HYDROBROMIDE 20 MG TABLET (FP) PO SCH (10:35)
[2017-07-01] MEDS: PRENATAL VITAMINS W/ FOLIC ACID TABLET (FP) PO SCH (10:35)
[2017-07-01] MEDS: amLODIPine BESYLATE 10 MG TABLET (FP) PO SCH (10:35)
[2017-07-01] MEDS: NICOTINE 14 MG/24 HOURS TOPICAL PATCH TD SCH (10:35)
--- NOTE | 2017-07-01 12:31 | PN ---
[facility] CIWA - CIWA Score Nausea/Vomitin-No Nausea/No Vomiting Muscle Tremors: None Anxiety: 4-Mod. Anxious/Guarded Agitation: 2 Paroxysmal Sweats: No Perspiration Orientation: 0-Oriented Tacttile Disturbances: 2-Mild Itch/Numbness/Burn Auditory Disturbances: 2-Mild Harshness/Frighten Visual Disturbances: 3-Moderate Sensitivity Headache: 0-None Present CIWA-Ar Total Score: 13 S Progress Note (SOAP) Subjective: Interrupted Sleep, Fatigue, Diarrhea. Objective: PATIENT A & O X 3, OBSERVED AMBULATING ON UNIT WITH ASSISTANCE OF A CANE. NO ACUTE DISTRESS. PATIENT REPORTS HISTORY OF NOCTURIA (X SEVERAL YEARS), FOR WHICH HE INTENDS TO SEE A MEDICAL PROVIDER IN THE NEAR FUTURE. HOWEVER, PATIENT DENIES ANY OTHER UNUSUAL URINARY SYMPTOMS (BURNING, PAIN, FREQUENCY, URGENCY). 07/01/17 12:27 Vital Signs Temperature 96.4 F L 07/01/17 11:03 Pulse Rate 62 07/01/17 11:03 Respiratory Rate 16 07/01/17 11:03 Blood Pressure 107/69 07/01/17 11:03 O2 Sat by Pulse Oximetry (%) Laboratory Tests 06/29/17 06/29/17 06/30/17 14:00 Unknown 06:00 WBC 10.8 H RBC 4.43 Hgb 14.1 Hct 41.3 MCV 93.3 MCH 31.8 MCHC 34.1 RDW 13.1 Plt Count 295 MPV 8.6 Sodium Potassium Chloride Carbon Dioxide Anion Gap BUN Creatinine Creat Clearance w eGFR Random Glucose Calcium Total Bilirubin AST ALT Alkaline Phosphatase Total Protein Albumin Urine Color Yellow Urine Appearance Cloudy Urine pH 5.0 Ur Specific [place] 1.018 Urine Protein Negative Urine Glucose (UA) Negative Urine Ketones Negative Urine Blood 2+ H Urine Nitrite Negative Urine Bilirubin Negative Urine Urobilinogen 4.0 e.u/dl Ur Leukocyte Esterase 3+ H Urine WBC (Auto) 186 Urine RBC (Auto) 17 Ur Epithelial Cells Rare Urine Bacteria Urine Mucus Rare RPR Titer HIV 1&2 Antibody Screen Negative HIV P24 Antigen Negative 06/30/17 06/30/17 06/30/17 06:00 06:00 15:15 WBC RBC Hgb Hct MCV MCH MCHC RDW Plt Count MPV Sodium 140 Potassium 3.6 Chloride 103 Carbon Dioxide 29 Anion Gap 8 BUN 15 Creatinine 1.3 Creat Clearance w eGFR 57.10 Random Glucose 111 H D Calcium 9.5 Total Bilirubin 0.7 AST 22 D ALT 21 Alkaline Phosphatase 99 Total Protein 7.9 Albumin 3.8 Urine Color Yellow Urine Appearance Clear Urine pH 6.0 Ur Specific [place] 1.023 Urine Protein Negative Urine Glucose (UA) Negative Urine Ketones Negative Urine Blood Negative Urine Nitrite Negative Urine Bilirubin Negative Urine Urobilinogen 4.0 e.u/dl Ur Leukocyte Esterase 2+ H Urine WBC (Auto) 19 Urine RBC (Auto) 8 Ur Epithelial Cells Rare Urine Bacteria Rare Urine Mucus Rare RPR Titer Nonreactive HIV 1&2 Antibody Screen HIV P24 Antigen LABS NOTED. RESULTS OF REPEAT UA NOTED. URINE C + S RESULTS PENDING. 07/01/17 12:28 07/01/17 12:30 Assessment: 07/01/17 12:27 WITHDRAWAL SYMPTOMS. Plan: CONTINUE DETOX. INCREASE DAILY PO FLUID INTAKE (WATER PITCHER FOR BEDSIDE).
[2017-07-01] MEDS: chlordiazePOXIDE 5 MG CAPSULE PO SCH ×2 (17:12→22:10)
[2017-07-01] MEDS: MIRTAZAPINE 15 MG TABLET (FP) PO SCH (22:09)
[2017-07-01] MEDS: CLOPIDOGREL BISULFATE 75 MG TABLET (FP) PO SCH (22:09)
[2017-07-01] MEDS: THIAMINE HCL 100 MG TABLET (FP) PO SCH (22:09)
[2017-07-02] MEDS: chlordiazePOXIDE 5 MG CAPSULE PO SCH ×2 (05:24→10:40)
[2017-07-02] MEDS: CITALOPRAM HYDROBROMIDE 20 MG TABLET (FP) PO SCH (10:40)
[2017-07-02] MEDS: NICOTINE 14 MG/24 HOURS TOPICAL PATCH TD SCH (10:40)
[2017-07-02] MEDS: PRENATAL VITAMINS W/ FOLIC ACID TABLET (FP) PO SCH (10:40)
[2017-07-02] MEDS: HYDROCHLOROTHIAZIDE 25 MG TABLET (FP) PO SCH (10:40)
[2017-07-02] MEDS: amLODIPine BESYLATE 10 MG TABLET (FP) PO SCH (10:40)
[2017-07-02] MEDS: ARIPiprazole 5 MG TABLET (FP) PO SCH (10:40)
[2017-07-02] MEDS: ASPIRIN 81 MG CHEWABLE TABLETS PO SCH (10:40)
[2017-07-02] MEDS: METOPROLOL TARTRATE 25 MG TABLET (FP) PO SCH (10:40)
--- NOTE | 2017-07-02 16:24 | PN ---
BHS Progress Note (SOAP) Subjective: Fatigue, Anxious. Objective: PATIENT A & O X 3, OBSERVED AMBULATING ON UNIT. NO ACUTE DISTRESS. 07/02/17 16:23 Vital Signs Temperature 98.4 F 07/02/17 15:00 Pulse Rate 58 L 07/02/17 15:00 Respiratory Rate 18 07/02/17 15:00 Blood Pressure 109/70 07/02/17 15:00 O2 Sat by Pulse Oximetry (%) Laboratory Tests 06/29/17 06/29/17 06/30/17 14:00 Unknown 06:00 WBC 10.8 H RBC 4.43 Hgb 14.1 Hct 41.3 MCV 93.3 MCH 31.8 MCHC 34.1 RDW 13.1 Plt Count 295 MPV 8.6 Sodium Potassium Chloride Carbon Dioxide Anion Gap BUN Creatinine Creat Clearance w eGFR Random Glucose Calcium Total Bilirubin AST ALT Alkaline Phosphatase Total Protein Albumin Urine Color Yellow Urine Appearance Cloudy Urine pH 5.0 Ur Specific [place] 1.018 Urine Protein Negative Urine Glucose (UA) Negative Urine Ketones Negative Urine Blood 2+ H Urine Nitrite Negative Urine Bilirubin Negative Urine Urobilinogen 4.0 e.u/dl Ur Leukocyte Esterase 3+ H Urine WBC (Auto) 186 Urine RBC (Auto) 17 Ur Epithelial Cells Rare Urine Bacteria Urine Mucus Rare RPR Titer HIV 1&2 Antibody Screen Negative HIV P24 Antigen Negative 06/30/17 06/30/17 06/30/17 06:00 06:00 15:15 WBC RBC Hgb Hct MCV MCH MCHC RDW Plt Count MPV Sodium 140 Potassium 3.6 Chloride 103 Carbon Dioxide 29 Anion Gap 8 BUN 15 Creatinine 1.3 Creat Clearance w eGFR 57.10 Random Glucose 111 H D Calcium 9.5 Total Bilirubin 0.7 AST 22 D ALT 21 Alkaline Phosphatase 99 Total Protein 7.9 Albumin 3.8 Urine Color Yellow Urine Appearance Clear Urine pH 6.0 Ur Specific [place] 1.023 Urine Protein Negative Urine Glucose (UA) Negative Urine Ketones Negative Urine Blood Negative Urine Nitrite Negative Urine Bilirubin Negative Urine Urobilinogen 4.0 e.u/dl Ur Leukocyte Esterase 2+ H Urine WBC (Auto) 19 Urine RBC (Auto) 8 Ur Epithelial Cells Rare Urine Bacteria Rare Urine Mucus Rare RPR Titer Nonreactive HIV 1&2 Antibody Screen HIV P24 Antigen LABS NOTED. Assessment: 07/02/17 16:23 WITHDRAWAL SYMPTOMS. Plan: CONTINUE DETOX. PATIENT SCHEDULED FOR D/C TOMORROW AM.
[2017-07-02] MEDS: chlordiazePOXIDE HCL 10 MG CAPSULE PO SCH ×3 (17:24→22:32)
[2017-07-02] MEDS: CLOPIDOGREL BISULFATE 75 MG TABLET (FP) PO SCH (22:30)
[2017-07-02] MEDS: MIRTAZAPINE 15 MG TABLET (FP) PO SCH (22:30)
[2017-07-02] MEDS: THIAMINE HCL 100 MG TABLET (FP) PO SCH (22:30)
[2017-07-03] MEDS: chlordiazePOXIDE HCL 10 MG CAPSULE PO SCH (06:10)
[2017-07-03 06:17] VITALS: BP 106/70; PULSE 63; TEMP 96
[2017-07-03] MEDS: ASPIRIN 81 MG CHEWABLE TABLETS PO SCH (09:24)
[2017-07-03] MEDS: HYDROCHLOROTHIAZIDE 25 MG TABLET (FP) PO SCH (09:24)
[2017-07-03] MEDS: NICOTINE 14 MG/24 HOURS TOPICAL PATCH TD SCH (09:24)
[2017-07-03] MEDS: ARIPiprazole 5 MG TABLET (FP) PO SCH (09:24)
[2017-07-03] MEDS: CITALOPRAM HYDROBROMIDE 20 MG TABLET (FP) PO SCH (09:24)
[2017-07-03] MEDS: METOPROLOL TARTRATE 25 MG TABLET (FP) PO SCH (09:24)
[2017-07-03] MEDS: amLODIPine BESYLATE 10 MG TABLET (FP) PO SCH (09:24)
[2017-07-03] MEDS: PRENATAL VITAMINS W/ FOLIC ACID TABLET (FP) PO SCH (09:25)
--- NOTE | 2017-07-03 15:08 | PN ---
[facility] Progress Note (SOAP) Subjective: DETOX COMPLETED. ALERT O X 3. NAD. Objective: 07/03/17 15:07 Vital Signs Temperature 96 F L 07/03/17 06:17 Pulse Rate 63 07/03/17 06:17 Respiratory Rate 18 07/03/17 06:17 Blood Pressure 106/70 07/03/17 06:17 O2 Sat by Pulse Oximetry (%) Laboratory Tests 06/29/17 06/29/17 06/30/17 14:00 Unknown 06:00 WBC 10.8 H RBC 4.43 Hgb 14.1 Hct 41.3 MCV 93.3 MCH 31.8 MCHC 34.1 RDW 13.1 Plt Count 295 MPV 8.6 Sodium Potassium Chloride Carbon Dioxide Anion Gap BUN Creatinine Creat Clearance w eGFR Random Glucose Calcium Total Bilirubin AST ALT Alkaline Phosphatase Total Protein Albumin Urine Color Yellow Urine Appearance Cloudy Urine pH 5.0 Ur Specific Echo 1.018 Urine Protein Negative Urine Glucose (UA) Negative Urine Ketones Negative Urine Blood 2+ H Urine Nitrite Negative Urine Bilirubin Negative Urine Urobilinogen 4.0 e.u/dl Ur Leukocyte Esterase 3+ H Urine WBC (Auto) 186 Urine RBC (Auto) 17 Ur Epithelial Cells Rare Urine Bacteria Urine Mucus Rare RPR Titer HIV 1&2 Antibody Screen Negative HIV P24 Antigen Negative 06/30/17 06/30/17 06/30/17 06:00 06:00 15:15 WBC RBC Hgb Hct MCV MCH MCHC RDW Plt Count MPV Sodium 140 Potassium 3.6 Chloride 103 Carbon Dioxide 29 Anion Gap 8 BUN 15 Creatinine 1.3 Creat Clearance w eGFR 57.10 Random Glucose 111 H D Calcium 9.5 Total Bilirubin 0.7 AST 22 D ALT 21 Alkaline Phosphatase 99 Total Protein 7.9 Albumin 3.8 Urine Color Yellow Urine Appearance Clear Urine pH 6.0 Ur Specific Echo 1.023 Urine Protein Negative Urine Glucose (UA) Negative Urine Ketones Negative Urine Blood Negative Urine Nitrite Negative Urine Bilirubin Negative Urine Urobilinogen 4.0 e.u/dl Ur Leukocyte Esterase 2+ H Urine WBC (Auto) 19 Urine RBC (Auto) 8 Ur Epithelial Cells Rare Urine Bacteria Rare Urine Mucus Rare RPR Titer Nonreactive HIV 1&2 Antibody Screen HIV P24 Antigen Assessment: 07/03/17 15:07 MEDICALLY STABLE. Plan: D/C PT TODAY. TO FOLLOW UP WITH AFTERCARE
--- NOTE | 2017-07-03 15:11 | DS ---
[facility] Detox Discharge Summary Admission Date: 06/29/17 Discharge Date: 07/03/17 - History Present History: Alcohol Dependence, Cocaine Dependence Additional Comments: DETOX COMPLETED. ALERT O X 3. NAD. TO FOLLOW UP WITH PMD AT [facility]. PT REPORTS HE HAS OWN MEDS Pertinent Past History: PLEASE SEE DX BELOW - Physical Exam Results Vital Signs: Vital Signs Temperature 96 F L 07/03/17 06:17 Pulse Rate 63 07/03/17 06:17 Respiratory Rate 18 07/03/17 06:17 Blood Pressure 106/70 07/03/17 06:17 O2 Sat by Pulse Oximetry (%) Pertinent Admission Physical Exam Findings: WITHDRAWAL SX Laboratory Tests 06/29/17 06/29/17 06/30/17 14:00 Unknown 06:00 WBC 10.8 H RBC 4.43 Hgb 14.1 Hct 41.3 MCV 93.3 MCH 31.8 MCHC 34.1 RDW 13.1 Plt Count 295 MPV 8.6 Sodium Potassium Chloride Carbon Dioxide Anion Gap BUN Creatinine Creat Clearance w eGFR Random Glucose Calcium Total Bilirubin AST ALT Alkaline Phosphatase Total Protein Albumin Urine Color Yellow Urine Appearance Cloudy Urine pH 5.0 Ur Specific [place] 1.018 Urine Protein Negative Urine Glucose (UA) Negative Urine Ketones Negative Urine Blood 2+ H Urine Nitrite Negative Urine Bilirubin Negative Urine Urobilinogen 4.0 e.u/dl Ur Leukocyte Esterase 3+ H Urine WBC (Auto) 186 Urine RBC (Auto) 17 Ur Epithelial Cells Rare Urine Bacteria Urine Mucus Rare RPR Titer HIV 1&2 Antibody Screen Negative HIV P24 Antigen Negative 06/30/17 06/30/17 06/30/17 06:00 06:00 15:15 WBC RBC Hgb Hct MCV MCH MCHC RDW Plt Count MPV Sodium 140 Potassium 3.6 Chloride 103 Carbon Dioxide 29 Anion Gap 8 BUN 15 Creatinine 1.3 Creat Clearance w eGFR 57.10 Random Glucose 111 H D Calcium 9.5 Total Bilirubin 0.7 AST 22 D ALT 21 Alkaline Phosphatase 99 Total Protein 7.9 Albumin 3.8 Urine Color Yellow Urine Appearance Clear Urine pH 6.0 Ur Specific [place] 1.023 Urine Protein Negative Urine Glucose (UA) Negative Urine Ketones Negative Urine Blood Negative Urine Nitrite Negative Urine Bilirubin Negative Urine Urobilinogen 4.0 e.u/dl Ur Leukocyte Esterase 2+ H Urine WBC (Auto) 19 Urine RBC (Auto) 8 Ur Epithelial Cells Rare Urine Bacteria Rare Urine Mucus Rare RPR Titer Nonreactive HIV 1&2 Antibody Screen HIV P24 Antigen - Treatment Hospital Course: Detox Protocol Followed, Detoxed Safely, Responded well, Discharged Condition Good - Medication Discharge Medications: Ambulatory Orders Aripiprazole [Abilify -] 5 mg PO DAILY 09/13/16 Citalopram Hydrobromide [Celexa -] 20 mg PO DAILY #30 tablet 11/27/16 Amlodipine Besylate [Norvasc -] 10 mg PO DAILY #30 tab 11/30/16 Aspirin [ASA -] 81 mg PO DAILY #30 tab 11/30/16 Clopidogrel Bisulfate [Plavix -] 75 mg PO HS #30 mg 11/30/16 Metoprolol Tartrate [Lopressor -] 25 mg PO DAILY #30 tab 11/30/16 Nitroglycerin [Nitrostat] 0.4 mg SL PRN #30 tab 11/30/16 Simvastatin [Zocor -] 20 mg PO HS #30 tab 11/30/16 Mirtazapine [Remeron -] 15 mg PO HS #30 tablet 03/22/17 Hydrochlorothiazide [Hctz -] 25 mg PO DAILY 06/29/17 - Diagnosis (1) Alcohol dependence with uncomplicated withdrawal Status: Acute (2) Cocaine dependence Status: Acute Qualifiers: Substance use status: uncomplicated Qualified Code(s): F14.20 - Cocaine dependence, uncomplicated (3) Nicotine dependence Status: Acute Qualifiers: Nicotine product type: cigarettes Substance use status: in withdrawal Qualified Code(s): F17.213 - Nicotine dependence, cigarettes, with withdrawal (4) Essential (primary) hypertension Status: Chronic (5) Hypercholesteremia Status: Chronic (6) S/P angioplasty with stent Status: Chronic (7) Use of cane as ambulatory aid Status: Chronic (8) CAD (coronary artery disease) Status: Chronic Qualifiers: Coronary Disease-Associated Artery/Lesion type: [place] artery [place] vs. transplanted heart: [place] heart Associated angina: without angina Qualified Code(s): I25.10 - Atherosclerotic heart disease of [place] coronary artery without angina pectoris (9) PVD (peripheral vascular disease) Status: Chronic - AMA Did Patient Leave Against Medical Advice: No
== END 2017-07-03 09:44 | disposition home or self-care (01) | DRG 774 ==
LOC: YASAS 10:59 → Y3N 13:25
PROVIDERS: ADMIT Internal Medicine; ATTEND Internal Medicine
PROC: HZ2ZZZZ Detoxification Services for Substance Abuse Treatment (ICD-10-PCS; principal; 2017-06-29)
DX: F10.230 Alcohol dependence with withdrawal, uncomplicated (principal); F14.20 Cocaine dependence, uncomplicated; F17.213 Nicotine dependence, cigarettes, with withdrawal; F32.9 Major depressive disorder, single episode, unspecified; G47.00 Insomnia, unspecified; E78.00 Pure hypercholesterolemia, unspecified; I25.10 Atherosclerotic heart disease of native coronary artery without angina pectoris; I10 Essential (primary) hypertension; Z95.5 Presence of coronary angioplasty implant and graft; I73.9 Peripheral vascular disease, unspecified; I69.354 Hemiplegia and hemiparesis following cerebral infarction affecting left non-dominant side; R26.89 Other abnormalities of gait and mobility; Z99.89 Dependence on other enabling machines and devices
CPT/HCPCS: 36415; 80053; 81003; 81015; 85027; 86593; 87086; 87389; 90732; 93005; 93010; G0009

== ENCOUNTER 2017-07-04 11:01 | Inpatient (IN) | payer OTHER ==
[2017-07-04 12:36] VITALS: BMI 27.2
--- NOTE | 2017-07-04 14:20 | HP ---
Admission ROS [facility] Chief Complaint: Patient completed detox here at [facility] 07/03/17. Patient now presents for rehab services for ETOH and crack/cocaine dependence. Allergies/Adverse Reactions: Allergies Allergy/AdvReac Type Severity Reaction Status Date / Time No Known Allergies Allergy Verified 07/04/17 12:49 History of Present Illness: Patient presents for rehab services for ETOH and Crack/Cocaine dependence. Completed detox yesterday at [facility]. Patient started drinking at age 17. Drinks 6 40 ounce beers daily. Denies history of seizures from ETOH use/withdrawal. Patient started smoking crack in 1984, and used up to 150$/daily. Has history of depression and denies SI/HI and suicide attempts. PMH includes HTN, Angina, HLD and s/p stent placement. Exam Limitations: Physical Impairment - Ebola screening Have you traveled outside of the country in the last 21 days: No Have you had contact with anyone from an Ebola affected area: No Have you been sick,other than usual withdrawal symptoms: No Do you have a fever: No - Review of Systems Constitutional: Night Sweats, Changes in sleep, Unexplained wgt Loss EENT: reports: Nose Congestion Respiratory: reports: Shortness of Breath Cardiac: reports: No Symptoms Reported GI: reports: No Symptoms Reported : reports: No Symptoms Reported Musculoskeletal: reports: Back Pain, Joint Pain, Muscle Pain Integumentary: reports: No Symptoms Reported Neuro: reports: No Symptoms reported Endocrine: reports: Unexplained Weight Loss Hematology: reports: No Symptoms Reported Psychiatric: reports: Orientated x3, Anxious, Depressed Patient History - Patient Medical History Hx Anemia: No Hx Asthma: No Hx Chronic Obstructive Pulmonary Disease (COPD): No Hx Cancer: No Hx Cardiac Disorders: Yes (angioplasty with 1 stent) Hx Congestive Heart Failure: No Hx Hypertension: Yes Hx Hypercholesterolemia: Yes (ON MED) Hx Pacemaker: No HX Cerebrovascular Accident: Yes (OLD WITH RIGHT SIDE WEAKNESS 2011) Hx Seizures: No Hx Dementia: No Hx Diabetes: No Hx Gastrointestinal Disorders: No Hx Liver Disease: No Hx Genitourinary Disorders: No Hx Sexually Transmitted Disorders: No Hx Renal Disease (ESRD): No Hx Thyroid Disease: No Hx Human Immunodeficiency Virus (HIV): No (LAST 2016) Hx Hepatitis C: No Hx Depression: Yes Hx Suicide Attempt: No Hx Bipolar Disorder: No Hx Schizophrenia: No - Patient Surgical History Past Surgical History: Yes Hx Neurologic Surgery: No Hx Cataract Extraction: No Hx Cardiac Surgery: Yes (S/P ANGIOPLASTY WITH STENT 08/27/11 ONE STENT) Hx Lung Surgery: No Hx Breast Surgery: No Hx Breast Biopsy: No Hx Abdominal Surgery: No Hx Appendectomy: No Hx Cholecystectomy: No Hx Genitourinary Surgery: No Hx Section: No Hx Orthopedic Surgery: No Other Surgical History: PVD S/P STENT IN BOTH EXTREMITIES IN 2012 Anesthesia Reaction: No - PPD History Previous Implant?: Yes Documented Results: Negative w/proof Date: 09/15/16 Results: 0 mm PPD to be Administered?: No - Smoking Cessation Smoking history: Current every day smoker Have you smoked in the past 12 months: Yes Aproximately how many cigarettes per day: 3 Hx Chewing Tobacco Use: No Initiated information on smoking cessation: Yes 'Breaking Loose' booklet given: 07/04/17 - Substance & Tx. History Hx Alcohol Use: Yes Hx Substance Use: Yes Substance Use Type: Alcohol, Cocaine Hx Substance Use Treatment: Yes - Substances Abused Crack Route: Smoking Frequency: Daily Amount used: $50 Age of first use: 23 Date of Last Use: 06/28/17 Alcohol Route: Oral Frequency: Daily Amount used: 6 40 OZ BEERS Age of first use: 17 Date of Last Use: 06/29/17 Family Disease History - Family Disease History Family Disease History: Heart Disease: Father ([place], ALCOHOL), Mother (HTN, ALCOHOL) Admission Physical Exam [facility] - Vital Signs Vital Signs: Vital Signs - 24 hr 07/04/17 12:31 Temperature 96.7 F L Pulse Rate 64 Respiratory 18 Rate Blood Pressure 134/78 - Physical General Appearance: Yes: Appropriately Dressed, Anxious HEENTM: Yes: EOMI, Hearing grossly Normal, Normocephalic, Normal Voice, BRENDEN, Pharynx Normal, Nasal Congestion Respiratory: Yes: Chest Non-Tender, Lungs Clear, Normal Breath Sounds, No Respiratory Distress, No Accessory Muscle Use Neck: Yes: No masses,lesions,Nodules, Supple Breast: Yes: Breast Exam Deferred Cardiology: Yes: Regular Rhythm, Regular Rate, S1, S2 Abdominal: Yes: Normal Bowel Sounds, Non Tender, Soft Genitourinary: Yes: Within Normal Limits Back: Yes: Normal Inspection, Muscle Spasm Musculoskeletal: Yes: Back pain, Joint Stiffness, Muscle Pain, Muscle weakness ( Right sided weakness due to old CVA) Extremities: Yes: Normal Inspection, Non-Tender Neurological: Yes: machine builder II-XII NML intact, Fully Oriented, Alert, Normal Response Integumentary: Yes: Normal Color, Dry, Warm Lymphatic: Yes: Within Normal Limits - Diagnostic (1) Alcohol dependence Current Visit: Yes Status: Chronic Qualifiers: Substance use status: uncomplicated Qualified Code(s): F10.20 - Alcohol dependence, uncomplicated (2) Cocaine dependence Current Visit: Yes Status: Chronic Qualifiers: Substance use status: uncomplicated Qualified Code(s): F14.20 - Cocaine dependence, uncomplicated (3) MDD (major depressive disorder), recurrent episode Current Visit: Yes Status: Chronic Qualifiers: Major depression episode severity: unspecified Qualified Code(s): F33.9 - Major depressive disorder, recurrent, unspecified (4) Essential (primary) hypertension Current Visit: Yes Status: Chronic (5) Hemiparesis affecting left side as late effect of cerebrovascular accident Current Visit: Yes Status: Chronic (6) Hypercholesteremia Current Visit: Yes Status: Chronic (7) PVD (peripheral vascular disease) Current Visit: Yes Status: Chronic (8) S/P angioplasty with stent Current Visit: No Status: Chronic (9) Use of cane as ambulatory aid Current Visit: Yes Status: Chronic Cleared for Admission [facility] - Detox or Rehab Claeared for Rehab Admission: Yes [facility] Breath Alcohol Content Breath Alcohol Content: 0 Urine Drug Screen - Results Drug Screen Negative: No Urine Drug Screen Results: BZO-Benzodiazepines Inpatient Rehab Admission - Initial Determination Are CD services needed?: Yes Free of communicable disease: Yes Not in need of hospitalization: Yes - Rehab Admission Criteria Previous failed treatment: Yes Poor recovery environment: Yes Comorbidities: Yes Lacks judgement: Yes Patient is meeting Inpatient Rehab admission criteria:: Yes
[2017-07-04] MEDS ORDERED: MENTHOL/PHENOL 1 EACH UD MM PRN (14:31)
[2017-07-04] MEDS ORDERED: hydrOXYzine PAMOATE 50 MG CAPSULE (FP) PO PRN (14:31)
[2017-07-04] MEDS ORDERED: ACETAMINOPHEN 325 MG TABLET (FP) PO PRN (14:31)
[2017-07-04] MEDS ORDERED: LOPERAMIDE HCL 2 MG CAPSULE PO PRN (14:31)
[2017-07-04] MEDS ORDERED: guaiFENesin/D-METHORPHAN HB 10 ML UNIT-DOSE CUPS PO PRN (14:31)
[2017-07-04] MEDS ORDERED: NICOTINE POLACRILEX 2 MG GUM BC PRN (14:31)
[2017-07-04] MEDS ORDERED: MAG HYDROX/AL HYDROX/SIMETH 30 ML UNIT-DOSE CUP PO PRN (14:31)
[2017-07-04] MEDS ORDERED: IBUPROFEN 400 MG TABLET (FP) PO PRN (14:31)
[2017-07-04] MEDS ORDERED: P-EPHED 60MG/TRIPROLIDI 2.5MG TABLET PO PRN (14:31)
[2017-07-04] MEDS ORDERED: MAGNESIUM HYDROX 2400MG/30ML ORAL SUSPENSION 30 ML CUP PO PRN (14:31)
[2017-07-04] MEDS ORDERED: MAGNESIUM CITRATE 300 ML BOTTLE PO PRN (14:31)
[2017-07-04] MEDS ORDERED: NITROGLYCERIN SUBLINGUAL 1/150 0.4 MG TAB SL PRN (14:45)
[2017-07-04 17:37] LABS: URINE APPEARANCE CLOUDY; URINE BILIRUBIN NEGATIVE (<2.0 mg/dL); URINE BLOOD NEGATIVE (NEGATIVE); URINE COLOR YELLOW; URINE GLUCOSE (UA) NEGATIVE (NEGATIVE); URINE KETONE NEGATIVE (NEGATIVE); URINE NITRITE NEGATIVE (NEGATIVE); URINE PROTEIN NEGATIVE (NEGATIVE)
[2017-07-04 17:40] LABS: URINE LEUK ESTERASE 3+ (NEGATIVE)
[2017-07-04 19:25] LABS: CALCIUM OXALATE CRYSTALS FEW /hpf (NONE SEEN); EPI CELLS RARE /HPF (FEW); URINE MUCUS RARE; YEAST FEW
[2017-07-04] MEDS: THIAMINE HCL 100 MG TABLET (FP) PO SCH (21:24)
[2017-07-04] MEDS: CLOPIDOGREL BISULFATE 75 MG TABLET (FP) PO SCH (21:24)
[2017-07-04] MEDS: ATORVASTATIN CA 10 MG TABLET (FP) PO SCH (21:24)
[2017-07-04] MEDS: MIRTAZAPINE 15 MG TABLET (FP) PO SCH (21:24)
[2017-07-04] MEDS ORDERED: MELATONIN 5 MG TABLETS PO PRN (22:00)
[2017-07-05] MEDS: amLODIPine BESYLATE 10 MG TABLET (FP) PO SCH (09:54)
[2017-07-05] MEDS: CITALOPRAM HYDROBROMIDE 20 MG TABLET (FP) PO SCH (09:54)
[2017-07-05] MEDS: ASPIRIN 81 MG CHEWABLE TABLETS PO SCH (09:54)
[2017-07-05] MEDS: HYDROCHLOROTHIAZIDE 25 MG TABLET (FP) PO SCH (09:54)
[2017-07-05] MEDS: ARIPiprazole 5 MG TABLET (FP) PO SCH (09:54)
[2017-07-05] MEDS: PRENATAL VITAMINS W/ FOLIC ACID TABLET (FP) PO SCH (09:55)
[2017-07-05] MEDS: METOPROLOL TARTRATE 25 MG TABLET (FP) PO SCH (09:58)
[2017-07-05] MEDS: NICOTINE 21 MG/24 HOURS TOPICAL PATCH TD SCH (09:58)
--- NOTE | 2017-07-05 10:41 | HP ---
Psychiatrist Admission - Data Date of interview: 07/05/17 Admission source: 3N Identifying data: p This is the first 5n inpatient rehabilitation admission for this a 56 year old male single male, father of two, unemployed (receiving disability), and currently homeless. Medical History: PVD S/P stent in both extremities in 2012, S/P angioplasty with 1 stent 08/27/2011. hypercholesterolemia, CVA with right side weakness in 2011, smokes 4-5 cigarettes daily Psychiatric History: Patient reports was diagnosed with depression and anxiety, first psychiatric treatment in 2011 "after I had a stroke", states was under the care [facility] in [facility], states stopped seing and his PCP continued to give him scripts for Abilify 5mg daily, celexa 20mg and mirtzapine 15mg q hs. Seen by NP. Charlton and continued his medications. Physical/Sexual Abuse/Trauma History: Denies history of sexual, physical an verbal abuse. Vital Signs: Vital Signs - 24 hr 07/04/17 07/04/17 07/05/17 12:31 18:10 00:30 Temperature 96.7 F L 97.7 F Pulse Rate 64 70 Respiratory 18 18 18 Rate Blood Pressure 134/78 117/80 07/05/17 07/05/17 03:30 06:34 Temperature 97.8 F Pulse Rate 68 Respiratory 16 18 Rate Blood Pressure 120/83 Allergies/Adverse Reactions: Allergies Allergy/AdvReac Type Severity Reaction Status Date / Time No Known Allergies Allergy Verified 07/04/17 12:49 Date of last physical exam: 06/29/17 - Substance Abuse/Tx History Hx Alcohol Use: Yes Hx Substance Use: Yes Substance Use Type: Alcohol (beer 6-40 oz daily, vodka 2 pints adily), Cocaine ( $150 daily use) Hx Substance Use Treatment: Yes ([facility]) Mental Status Exam - Mental Status Exam Alert and Oriented to: Time, Place, Person Cognitive Function: Good Patient Appearance: Well Groomed Mood: Hopeful Affect: Appropriate, Mood Congruent Patient Behavior: Appropriate, Cooperative Speech Pattern: Clear, Appropriate Voice Loudness: Normal Thought Process: Goal Oriented Thought Disorder: Not Present Hallucinations: Denies, Visual (states he sees things when not on meds.) Suicidal Ideation: Denies Homicidal Ideation: Denies Insight/Judgement: Fair Sleep: Fair Appetite: Fair Muscle strength/Tone: Normal Gait/Station: Other (ambulates with a cane.) Psychiatric Findings - Problem List ([place] 1, 2,3) (1) Alcohol dependence Current Visit: Yes Status: Chronic Qualifiers: Substance use status: uncomplicated Qualified Code(s): F10.20 - Alcohol dependence, uncomplicated (2) Cocaine dependence Current Visit: Yes Status: Chronic Qualifiers: Substance use status: uncomplicated Qualified Code(s): F14.20 - Cocaine dependence, uncomplicated (3) MDD (major depressive disorder), recurrent episode Current Visit: Yes Status: Chronic Qualifiers: Major depression episode severity: unspecified Qualified Code(s): F33.9 - Major depressive disorder, recurrent, unspecified (4) Nicotine dependence Current Visit: No Status: Acute Qualifiers: Nicotine product type: cigarettes Substance use status: in withdrawal Qualified Code(s): F17.213 - Nicotine dependence, cigarettes, with withdrawal - Initial Treatment Plan Initial Treatment Plan: Continue his current medications, monitor progress as needed.
--- NOTE | 2017-07-05 12:01 | EKG ---
Test Reason : Blood Pressure : / mmHG Vent. Rate : 082 BPM Atrial Rate : 082 BPM P-R Int : 140 ms QRS Dur : 098 ms QT Int : 366 ms P-R-T Axes : 062 040 026 degrees QTc Int : 427 ms NORMAL SINUS RHYTHM NORMAL ECG Confirmed by MD JUNIOR GREGORY (2012) on 07/05/2017 12:00:24 PM Referred By: Confirmed By:BOBBY JUNIOR MD
--- NOTE | 2017-07-05 14:17 | PN ---
S Progress Note Note: On 07/04/17 was contacted by nursing stuff from [facility] regarding medications order: Abilify 5mg poqd Remeron 15mg po qhs Celexa 20mg poqd Meications were ordered,
[2017-07-05] MEDS: MIRTAZAPINE 15 MG TABLET (FP) PO SCH (21:22)
[2017-07-05] MEDS: CLOPIDOGREL BISULFATE 75 MG TABLET (FP) PO SCH (21:22)
[2017-07-05] MEDS: THIAMINE HCL 100 MG TABLET (FP) PO SCH (21:22)
[2017-07-05] MEDS: ATORVASTATIN CA 10 MG TABLET (FP) PO SCH (21:22)
[2017-07-06] MEDS: amLODIPine BESYLATE 10 MG TABLET (FP) PO SCH (10:13)
[2017-07-06] MEDS: METOPROLOL TARTRATE 25 MG TABLET (FP) PO SCH (10:13)
[2017-07-06] MEDS: PRENATAL VITAMINS W/ FOLIC ACID TABLET (FP) PO SCH (10:13)
[2017-07-06] MEDS: ARIPiprazole 5 MG TABLET (FP) PO SCH (10:13)
[2017-07-06] MEDS: CITALOPRAM HYDROBROMIDE 20 MG TABLET (FP) PO SCH (10:13)
[2017-07-06] MEDS: ASPIRIN 81 MG CHEWABLE TABLETS PO SCH (10:13)
[2017-07-06] MEDS: HYDROCHLOROTHIAZIDE 25 MG TABLET (FP) PO SCH (10:14)
[2017-07-06] MEDS: NICOTINE 21 MG/24 HOURS TOPICAL PATCH TD SCH (10:14)
[2017-07-06] MEDS: CLOPIDOGREL BISULFATE 75 MG TABLET (FP) PO SCH (21:21)
[2017-07-06] MEDS: MIRTAZAPINE 15 MG TABLET (FP) PO SCH (21:21)
[2017-07-06] MEDS: ATORVASTATIN CA 10 MG TABLET (FP) PO SCH (21:21)
[2017-07-06] MEDS: THIAMINE HCL 100 MG TABLET (FP) PO SCH (21:21)
[2017-07-07] MEDS: ARIPiprazole 5 MG TABLET (FP) PO SCH (10:15)
[2017-07-07] MEDS: METOPROLOL TARTRATE 25 MG TABLET (FP) PO SCH (10:15)
[2017-07-07] MEDS: PRENATAL VITAMINS W/ FOLIC ACID TABLET (FP) PO SCH (10:15)
[2017-07-07] MEDS: ASPIRIN 81 MG CHEWABLE TABLETS PO SCH (10:15)
[2017-07-07] MEDS: HYDROCHLOROTHIAZIDE 25 MG TABLET (FP) PO SCH (10:15)
[2017-07-07] MEDS: CITALOPRAM HYDROBROMIDE 20 MG TABLET (FP) PO SCH (10:15)
[2017-07-07] MEDS: amLODIPine BESYLATE 10 MG TABLET (FP) PO SCH (10:15)
[2017-07-07] MEDS: NICOTINE 21 MG/24 HOURS TOPICAL PATCH TD SCH (10:16)
[2017-07-07] MEDS: ATORVASTATIN CA 10 MG TABLET (FP) PO SCH (21:23)
[2017-07-07] MEDS: MIRTAZAPINE 15 MG TABLET (FP) PO SCH (21:23)
[2017-07-07] MEDS: THIAMINE HCL 100 MG TABLET (FP) PO SCH (21:23)
[2017-07-07] MEDS: CLOPIDOGREL BISULFATE 75 MG TABLET (FP) PO SCH (21:24)
[2017-07-08] MEDS: PRENATAL VITAMINS W/ FOLIC ACID TABLET (FP) PO SCH (10:42)
[2017-07-08] MEDS: HYDROCHLOROTHIAZIDE 25 MG TABLET (FP) PO SCH (10:42)
[2017-07-08] MEDS: ASPIRIN 81 MG CHEWABLE TABLETS PO SCH (10:42)
[2017-07-08] MEDS: CITALOPRAM HYDROBROMIDE 20 MG TABLET (FP) PO SCH (10:42)
[2017-07-08] MEDS: METOPROLOL TARTRATE 25 MG TABLET (FP) PO SCH (10:43)
[2017-07-08] MEDS: ARIPiprazole 5 MG TABLET (FP) PO SCH (10:43)
[2017-07-08] MEDS: amLODIPine BESYLATE 10 MG TABLET (FP) PO SCH (10:43)
[2017-07-08] MEDS: NICOTINE 21 MG/24 HOURS TOPICAL PATCH TD SCH (10:44)
[2017-07-08] MEDS: CLOPIDOGREL BISULFATE 75 MG TABLET (FP) PO SCH (21:28)
[2017-07-08] MEDS: ATORVASTATIN CA 10 MG TABLET (FP) PO SCH (21:28)
[2017-07-08] MEDS: MIRTAZAPINE 15 MG TABLET (FP) PO SCH (21:28)
[2017-07-08] MEDS: THIAMINE HCL 100 MG TABLET (FP) PO SCH (21:28)
[2017-07-09] MEDS: METOPROLOL TARTRATE 25 MG TABLET (FP) PO SCH (09:57)
[2017-07-09] MEDS: CITALOPRAM HYDROBROMIDE 20 MG TABLET (FP) PO SCH (09:57)
[2017-07-09] MEDS: HYDROCHLOROTHIAZIDE 25 MG TABLET (FP) PO SCH (09:57)
[2017-07-09] MEDS: PRENATAL VITAMINS W/ FOLIC ACID TABLET (FP) PO SCH (09:57)
[2017-07-09] MEDS: amLODIPine BESYLATE 10 MG TABLET (FP) PO SCH (09:57)
[2017-07-09] MEDS: ARIPiprazole 5 MG TABLET (FP) PO SCH (09:57)
[2017-07-09] MEDS: ASPIRIN 81 MG CHEWABLE TABLETS PO SCH (09:57)
[2017-07-09] MEDS: NICOTINE 21 MG/24 HOURS TOPICAL PATCH TD SCH (09:58)
[2017-07-09] MEDS: THIAMINE HCL 100 MG TABLET (FP) PO SCH (21:41)
[2017-07-09] MEDS: ATORVASTATIN CA 10 MG TABLET (FP) PO SCH (21:41)
[2017-07-09] MEDS: MIRTAZAPINE 15 MG TABLET (FP) PO SCH (21:41)
[2017-07-09] MEDS: CLOPIDOGREL BISULFATE 75 MG TABLET (FP) PO SCH (21:41)
[2017-07-10] MEDS: PRENATAL VITAMINS W/ FOLIC ACID TABLET (FP) PO SCH (09:51)
[2017-07-10] MEDS: amLODIPine BESYLATE 10 MG TABLET (FP) PO SCH (09:51)
[2017-07-10] MEDS: METOPROLOL TARTRATE 25 MG TABLET (FP) PO SCH (09:51)
[2017-07-10] MEDS: NICOTINE 21 MG/24 HOURS TOPICAL PATCH TD SCH (09:51)
[2017-07-10] MEDS: HYDROCHLOROTHIAZIDE 25 MG TABLET (FP) PO SCH (09:51)
[2017-07-10] MEDS: ASPIRIN 81 MG CHEWABLE TABLETS PO SCH (09:51)
[2017-07-10] MEDS: CITALOPRAM HYDROBROMIDE 20 MG TABLET (FP) PO SCH (09:51)
[2017-07-10] MEDS: ARIPiprazole 5 MG TABLET (FP) PO SCH (09:51)
[2017-07-10] MEDS: CLOPIDOGREL BISULFATE 75 MG TABLET (FP) PO SCH (21:21)
[2017-07-10] MEDS: MIRTAZAPINE 15 MG TABLET (FP) PO SCH (21:21)
[2017-07-10] MEDS: ATORVASTATIN CA 10 MG TABLET (FP) PO SCH (21:21)
[2017-07-10] MEDS: THIAMINE HCL 100 MG TABLET (FP) PO SCH (21:21)
[2017-07-11] MEDS: HYDROCHLOROTHIAZIDE 25 MG TABLET (FP) PO SCH (10:02)
[2017-07-11] MEDS: NICOTINE 21 MG/24 HOURS TOPICAL PATCH TD SCH (10:02)
[2017-07-11] MEDS: CITALOPRAM HYDROBROMIDE 20 MG TABLET (FP) PO SCH (10:02)
[2017-07-11] MEDS: PRENATAL VITAMINS W/ FOLIC ACID TABLET (FP) PO SCH (10:02)
[2017-07-11] MEDS: ASPIRIN 81 MG CHEWABLE TABLETS PO SCH (10:02)
[2017-07-11] MEDS: amLODIPine BESYLATE 10 MG TABLET (FP) PO SCH (10:02)
[2017-07-11] MEDS: ARIPiprazole 5 MG TABLET (FP) PO SCH (10:03)
[2017-07-11] MEDS: METOPROLOL TARTRATE 25 MG TABLET (FP) PO SCH (10:04)
[2017-07-11] MEDS: THIAMINE HCL 100 MG TABLET (FP) PO SCH (21:18)
[2017-07-11] MEDS: ATORVASTATIN CA 10 MG TABLET (FP) PO SCH (21:18)
[2017-07-11] MEDS: CLOPIDOGREL BISULFATE 75 MG TABLET (FP) PO SCH (21:19)
[2017-07-11] MEDS: MIRTAZAPINE 15 MG TABLET (FP) PO SCH (21:19)
--- NOTE | 2017-07-12 08:12 | PN ---
Psychiatric Progress Note Vital Signs: Vital Signs Period Temp Pulse Resp BP Sys/Odell Pulse Ox Last 24 Hr 97.8 F 68-71 16-18 104-122/69-70 Date of Session: 07/12/17 Chief Complaint:: dsicharge visit HPI: Patient has addressed alcohol, cocaine, nicotine dependence comorbid MDD. ROS: PVD S/P stent in both extremities in 2012, S/P angioplasty with 1 stent 08/27/2011. hypercholesterolemia, CVA with right side weakness in 2011, Current Medications: Active Medications Generic Name Dose Route Start Last Admin Trade Name Freq PRN Reason Stop Dose Admin Acetaminophen 650 mg 07/04/17 14:31 Tylenol - PO Q4H PRN FEVER Al Hydroxide/Mg Hydroxide 30 ml 07/04/17 14:31 Mylanta Oral Suspension - PO Q6H PRN DYSPEPSIA Amlodipine Besylate 10 mg 07/05/17 10:00 07/11/17 10:02 Norvasc - PO 10 mg DAILY NILO Administration Aripiprazole 5 mg 07/05/17 10:00 07/11/17 10:03 Abilify PO 5 mg DAILY NILO Administration Aspirin 81 mg 07/05/17 10:00 07/11/17 10:02 Asa - PO 81 mg DAILY NILO Administration Atorvastatin Calcium 10 mg 07/04/17 22:00 07/11/17 21:18 Lipitor - PO 10 mg HS NILO Administration Citalopram Hydrobromide 20 mg 07/05/17 10:00 07/11/17 10:02 Celexa - PO 20 mg DAILY NILO Administration Clopidogrel Bisulfate 75 mg 07/04/17 22:00 07/11/17 21:19 Plavix - PO 75 mg HS NILO Administration Eucalyptus/Menthol/Phenol/Sorbitol 1 each 07/04/17 14:31 Cepastat Lozenge - MM Q4H PRN SORE THROAT Guaifenesin 10 ml 07/04/17 14:31 Robitussin Dm - PO Q6H PRN COUGH Hydrochlorothiazide 25 mg 07/05/17 10:00 07/11/17 10:02 Hctz - PO 25 mg DAILY NILO Administration Hydroxyzine Pamoate 50 mg 07/04/17 14:31 Vistaril - PO Q4H PRN AGITATION Loperamide HCl 4 mg 07/04/17 14:31 Imodium - PO Q6H PRN DIARRHEA Magnesium Citrate 300 ml 07/04/17 14:31 Citroma - PO Q48H PRN CONSTIPATION Magnesium Hydroxide 30 ml 07/04/17 14:31 Milk Of Magnesia - PO DAILY PRN CONSTIPATION Melatonin 5 mg 07/04/17 22:00 Melatonin PO HS PRN INSOMNIA Metoprolol Tartrate 25 mg 07/05/17 10:00 07/11/17 10:04 Lopressor - PO 25 mg DAILY NILO Administration Mirtazapine 15 mg 07/04/17 22:00 07/11/17 21:19 Remeron - PO 15 mg HS NILO Administration Nicotine 21 mg 07/05/17 10:00 07/11/17 10:02 Nicoderm Patch - TD 21 mg DAILY NILO Administration Nicotine Polacrilex 2 mg 07/04/17 14:31 Nicorette Gum - BC Q2H PRN NICOTINE REPLACEMENT RX Nitroglycerin 0.4 mg 07/04/17 14:45 Nitrostat - SL PRN PRN CHEST PAIN Multivit/Folic Acid/Iron 1 tab 07/05/17 10:00 07/11/17 10:02 Vitamins (Sjr) - PO 1 tab DAILY NILO Administration Pseudoephedrine/Triprolidine 1 combo 07/04/17 14:31 Actifed - PO TID PRN NASAL CONGESTION Thiamine HCl 100 mg 07/04/17 22:00 07/11/17 21:18 Vitamin B1 - PO 100 mg HS NILO Administration Current Side Effect: No Lab tests ordered: No Lab tests reviewed: Yes Provider note:: [facility]. Mental Status Exam - Mental Status Exam Alert and Oriented to: Time, Place, Person Cognitive Function: Good Patient Appearance: Well Groomed Mood: Hopeful Affect: Appropriate, Mood Congruent Patient Behavior: Appropriate, Cooperative Speech Pattern: Clear, Appropriate Voice Loudness: Normal Thought Process: Intact, Goal Oriented Thought Disorder: Not Present Hallucinations: Denies Suicidal Ideation: Denies Homicidal Ideation: Denies Insight/Judgement: Fair Sleep: Fair Appetite: Fair Muscle strength/Tone: Normal Gait/Station: Normal Psychiatric Treatment Plan - Problem List (1) Alcohol dependence Current Visit: Yes Qualifiers: Substance use status: uncomplicated Qualified Code(s): F10.20 - Alcohol dependence, uncomplicated (2) Cocaine dependence Current Visit: Yes Qualifiers: Substance use status: uncomplicated Qualified Code(s): F14.20 - Cocaine dependence, uncomplicated (3) MDD (major depressive disorder), recurrent episode Current Visit: Yes Qualifiers: Major depression episode severity: unspecified Qualified Code(s): F33.9 - Major depressive disorder, recurrent, unspecified (4) Nicotine dependence Current Visit: No Qualifiers: Nicotine product type: cigarettes Substance use status: in withdrawal Qualified Code(s): F17.213 - Nicotine dependence, cigarettes, with withdrawal
[2017-07-12] MEDS: CITALOPRAM HYDROBROMIDE 20 MG TABLET (FP) PO SCH (10:09)
[2017-07-12] MEDS: ASPIRIN 81 MG CHEWABLE TABLETS PO SCH (10:09)
[2017-07-12] MEDS: NICOTINE 21 MG/24 HOURS TOPICAL PATCH TD SCH (10:09)
[2017-07-12] MEDS: ARIPiprazole 5 MG TABLET (FP) PO SCH (10:09)
[2017-07-12] MEDS: amLODIPine BESYLATE 10 MG TABLET (FP) PO SCH (10:09)
[2017-07-12] MEDS: PRENATAL VITAMINS W/ FOLIC ACID TABLET (FP) PO SCH (10:09)
[2017-07-12] MEDS: HYDROCHLOROTHIAZIDE 25 MG TABLET (FP) PO SCH (10:09)
[2017-07-12] MEDS: METOPROLOL TARTRATE 25 MG TABLET (FP) PO SCH (10:09)
[2017-07-12] MEDS: MIRTAZAPINE 15 MG TABLET (FP) PO SCH (21:33)
[2017-07-12] MEDS: ATORVASTATIN CA 10 MG TABLET (FP) PO SCH (21:33)
[2017-07-12] MEDS: THIAMINE HCL 100 MG TABLET (FP) PO SCH (21:33)
[2017-07-12] MEDS: CLOPIDOGREL BISULFATE 75 MG TABLET (FP) PO SCH (21:33)
[2017-07-13] MEDS: ASPIRIN 81 MG CHEWABLE TABLETS PO SCH (10:09)
[2017-07-13] MEDS: amLODIPine BESYLATE 10 MG TABLET (FP) PO SCH (10:09)
[2017-07-13] MEDS: ARIPiprazole 5 MG TABLET (FP) PO SCH (10:09)
[2017-07-13] MEDS: NICOTINE 21 MG/24 HOURS TOPICAL PATCH TD SCH (10:09)
[2017-07-13] MEDS: PRENATAL VITAMINS W/ FOLIC ACID TABLET (FP) PO SCH (10:09)
[2017-07-13] MEDS: METOPROLOL TARTRATE 25 MG TABLET (FP) PO SCH (10:09)
[2017-07-13] MEDS: HYDROCHLOROTHIAZIDE 25 MG TABLET (FP) PO SCH (10:09)
[2017-07-13] MEDS: CITALOPRAM HYDROBROMIDE 20 MG TABLET (FP) PO SCH (10:09)
[2017-07-13] MEDS: THIAMINE HCL 100 MG TABLET (FP) PO SCH (21:23)
[2017-07-13] MEDS: CLOPIDOGREL BISULFATE 75 MG TABLET (FP) PO SCH (21:23)
[2017-07-13] MEDS: MIRTAZAPINE 15 MG TABLET (FP) PO SCH (21:23)
[2017-07-13] MEDS: ATORVASTATIN CA 10 MG TABLET (FP) PO SCH (21:23)
[2017-07-14] MEDS: amLODIPine BESYLATE 10 MG TABLET (FP) PO SCH (10:10)
[2017-07-14] MEDS: PRENATAL VITAMINS W/ FOLIC ACID TABLET (FP) PO SCH (10:10)
[2017-07-14] MEDS: CITALOPRAM HYDROBROMIDE 20 MG TABLET (FP) PO SCH (10:10)
[2017-07-14] MEDS: METOPROLOL TARTRATE 25 MG TABLET (FP) PO SCH (10:10)
[2017-07-14] MEDS: HYDROCHLOROTHIAZIDE 25 MG TABLET (FP) PO SCH (10:11)
[2017-07-14] MEDS: ASPIRIN 81 MG CHEWABLE TABLETS PO SCH (10:11)
[2017-07-14] MEDS: NICOTINE 21 MG/24 HOURS TOPICAL PATCH TD SCH (10:11)
[2017-07-14] MEDS: ARIPiprazole 5 MG TABLET (FP) PO SCH (10:11)
[2017-07-14] MEDS: THIAMINE HCL 100 MG TABLET (FP) PO SCH (21:36)
[2017-07-14] MEDS: MIRTAZAPINE 15 MG TABLET (FP) PO SCH (21:36)
[2017-07-14] MEDS: ATORVASTATIN CA 10 MG TABLET (FP) PO SCH (21:37)
[2017-07-14] MEDS: CLOPIDOGREL BISULFATE 75 MG TABLET (FP) PO SCH (21:37)
[2017-07-15] MEDS: ARIPiprazole 5 MG TABLET (FP) PO SCH (09:55)
[2017-07-15] MEDS: ASPIRIN 81 MG CHEWABLE TABLETS PO SCH (09:55)
[2017-07-15] MEDS: PRENATAL VITAMINS W/ FOLIC ACID TABLET (FP) PO SCH (09:55)
[2017-07-15] MEDS: METOPROLOL TARTRATE 25 MG TABLET (FP) PO SCH (09:56)
[2017-07-15] MEDS: CITALOPRAM HYDROBROMIDE 20 MG TABLET (FP) PO SCH (09:56)
[2017-07-15] MEDS: HYDROCHLOROTHIAZIDE 25 MG TABLET (FP) PO SCH (09:56)
[2017-07-15] MEDS: amLODIPine BESYLATE 10 MG TABLET (FP) PO SCH (09:56)
[2017-07-15] MEDS: NICOTINE 21 MG/24 HOURS TOPICAL PATCH TD SCH (09:56)
[2017-07-15] MEDS: CLOPIDOGREL BISULFATE 75 MG TABLET (FP) PO SCH (21:18)
[2017-07-15] MEDS: ATORVASTATIN CA 10 MG TABLET (FP) PO SCH (21:18)
[2017-07-15] MEDS: MIRTAZAPINE 15 MG TABLET (FP) PO SCH (21:18)
[2017-07-15] MEDS: THIAMINE HCL 100 MG TABLET (FP) PO SCH (21:18)
[2017-07-16] MEDS: HYDROCHLOROTHIAZIDE 25 MG TABLET (FP) PO SCH (10:12)
[2017-07-16] MEDS: PRENATAL VITAMINS W/ FOLIC ACID TABLET (FP) PO SCH (10:12)
[2017-07-16] MEDS: ARIPiprazole 5 MG TABLET (FP) PO SCH (10:13)
[2017-07-16] MEDS: CITALOPRAM HYDROBROMIDE 20 MG TABLET (FP) PO SCH (10:13)
[2017-07-16] MEDS: METOPROLOL TARTRATE 25 MG TABLET (FP) PO SCH (10:13)
[2017-07-16] MEDS: ASPIRIN 81 MG CHEWABLE TABLETS PO SCH (10:13)
[2017-07-16] MEDS: NICOTINE 21 MG/24 HOURS TOPICAL PATCH TD SCH (10:13)
[2017-07-16] MEDS: amLODIPine BESYLATE 10 MG TABLET (FP) PO SCH (10:13)
[2017-07-16] MEDS: CLOPIDOGREL BISULFATE 75 MG TABLET (FP) PO SCH (21:43)
[2017-07-16] MEDS: ATORVASTATIN CA 10 MG TABLET (FP) PO SCH (21:43)
[2017-07-16] MEDS: THIAMINE HCL 100 MG TABLET (FP) PO SCH (21:44)
[2017-07-16] MEDS: MIRTAZAPINE 15 MG TABLET (FP) PO SCH (21:44)
[2017-07-17] MEDS: HYDROCHLOROTHIAZIDE 25 MG TABLET (FP) PO SCH (09:51)
[2017-07-17] MEDS: amLODIPine BESYLATE 10 MG TABLET (FP) PO SCH (09:51)
[2017-07-17] MEDS: METOPROLOL TARTRATE 25 MG TABLET (FP) PO SCH (09:51)
[2017-07-17] MEDS: CITALOPRAM HYDROBROMIDE 20 MG TABLET (FP) PO SCH (09:51)
[2017-07-17] MEDS: NICOTINE 21 MG/24 HOURS TOPICAL PATCH TD SCH (09:51)
[2017-07-17] MEDS: ASPIRIN 81 MG CHEWABLE TABLETS PO SCH (09:51)
[2017-07-17] MEDS: PRENATAL VITAMINS W/ FOLIC ACID TABLET (FP) PO SCH (09:51)
[2017-07-17] MEDS: ARIPiprazole 5 MG TABLET (FP) PO SCH (09:51)
[2017-07-17] MEDS: ATORVASTATIN CA 10 MG TABLET (FP) PO SCH (21:15)
[2017-07-17] MEDS: CLOPIDOGREL BISULFATE 75 MG TABLET (FP) PO SCH (21:15)
[2017-07-17] MEDS: MIRTAZAPINE 15 MG TABLET (FP) PO SCH (21:16)
[2017-07-17] MEDS: THIAMINE HCL 100 MG TABLET (FP) PO SCH (21:16)
[2017-07-18] MEDS: METOPROLOL TARTRATE 25 MG TABLET (FP) PO SCH (09:49)
[2017-07-18] MEDS: PRENATAL VITAMINS W/ FOLIC ACID TABLET (FP) PO SCH (09:49)
[2017-07-18] MEDS: amLODIPine BESYLATE 10 MG TABLET (FP) PO SCH (09:49)
[2017-07-18] MEDS: ARIPiprazole 5 MG TABLET (FP) PO SCH (09:49)
[2017-07-18] MEDS: HYDROCHLOROTHIAZIDE 25 MG TABLET (FP) PO SCH (09:49)
[2017-07-18] MEDS: CITALOPRAM HYDROBROMIDE 20 MG TABLET (FP) PO SCH (09:49)
[2017-07-18] MEDS: NICOTINE 21 MG/24 HOURS TOPICAL PATCH TD SCH (09:51)
[2017-07-18] MEDS: ASPIRIN 81 MG CHEWABLE TABLETS PO SCH (10:37)
[2017-07-18] MEDS: THIAMINE HCL 100 MG TABLET (FP) PO SCH (21:28)
[2017-07-18] MEDS: MIRTAZAPINE 15 MG TABLET (FP) PO SCH (21:28)
[2017-07-18] MEDS: CLOPIDOGREL BISULFATE 75 MG TABLET (FP) PO SCH (21:28)
[2017-07-18] MEDS: ATORVASTATIN CA 10 MG TABLET (FP) PO SCH (21:28)
[2017-07-19] MEDS: ARIPiprazole 5 MG TABLET (FP) PO SCH (10:06)
[2017-07-19] MEDS: NICOTINE 21 MG/24 HOURS TOPICAL PATCH TD SCH (10:06)
[2017-07-19] MEDS: amLODIPine BESYLATE 10 MG TABLET (FP) PO SCH (10:06)
[2017-07-19] MEDS: HYDROCHLOROTHIAZIDE 25 MG TABLET (FP) PO SCH (10:06)
[2017-07-19] MEDS: ASPIRIN 81 MG CHEWABLE TABLETS PO SCH (10:06)
[2017-07-19] MEDS: METOPROLOL TARTRATE 25 MG TABLET (FP) PO SCH (10:06)
[2017-07-19] MEDS: PRENATAL VITAMINS W/ FOLIC ACID TABLET (FP) PO SCH (10:06)
[2017-07-19] MEDS: CITALOPRAM HYDROBROMIDE 20 MG TABLET (FP) PO SCH (10:06)
[2017-07-19] MEDS: MIRTAZAPINE 15 MG TABLET (FP) PO SCH (21:32)
[2017-07-19] MEDS: THIAMINE HCL 100 MG TABLET (FP) PO SCH (21:32)
[2017-07-19] MEDS: ATORVASTATIN CA 10 MG TABLET (FP) PO SCH (21:32)
[2017-07-19] MEDS: CLOPIDOGREL BISULFATE 75 MG TABLET (FP) PO SCH (21:32)
[2017-07-20] MEDS: amLODIPine BESYLATE 10 MG TABLET (FP) PO SCH (10:14)
[2017-07-20] MEDS: PRENATAL VITAMINS W/ FOLIC ACID TABLET (FP) PO SCH (10:14)
[2017-07-20] MEDS: HYDROCHLOROTHIAZIDE 25 MG TABLET (FP) PO SCH (10:14)
[2017-07-20] MEDS: CITALOPRAM HYDROBROMIDE 20 MG TABLET (FP) PO SCH (10:14)
[2017-07-20] MEDS: ARIPiprazole 5 MG TABLET (FP) PO SCH (10:14)
[2017-07-20] MEDS: METOPROLOL TARTRATE 25 MG TABLET (FP) PO SCH (10:14)
[2017-07-20] MEDS: ASPIRIN 81 MG CHEWABLE TABLETS PO SCH (10:15)
[2017-07-20] MEDS: NICOTINE 21 MG/24 HOURS TOPICAL PATCH TD SCH (10:15)
[2017-07-20] MEDS: ATORVASTATIN CA 10 MG TABLET (FP) PO SCH (21:27)
[2017-07-20] MEDS: MIRTAZAPINE 15 MG TABLET (FP) PO SCH (21:27)
[2017-07-20] MEDS: CLOPIDOGREL BISULFATE 75 MG TABLET (FP) PO SCH (21:27)
[2017-07-20] MEDS: THIAMINE HCL 100 MG TABLET (FP) PO SCH (21:27)
[2017-07-21] MEDS: CITALOPRAM HYDROBROMIDE 20 MG TABLET (FP) PO SCH (10:10)
[2017-07-21] MEDS: ASPIRIN 81 MG CHEWABLE TABLETS PO SCH (10:10)
[2017-07-21] MEDS: PRENATAL VITAMINS W/ FOLIC ACID TABLET (FP) PO SCH (10:10)
[2017-07-21] MEDS: HYDROCHLOROTHIAZIDE 25 MG TABLET (FP) PO SCH (10:10)
[2017-07-21] MEDS: ARIPiprazole 5 MG TABLET (FP) PO SCH (10:10)
[2017-07-21] MEDS: METOPROLOL TARTRATE 25 MG TABLET (FP) PO SCH (10:10)
[2017-07-21] MEDS: amLODIPine BESYLATE 10 MG TABLET (FP) PO SCH (10:10)
[2017-07-21] MEDS: NICOTINE 21 MG/24 HOURS TOPICAL PATCH TD SCH (10:11)
[2017-07-21] MEDS: ATORVASTATIN CA 10 MG TABLET (FP) PO SCH (21:26)
[2017-07-21] MEDS: CLOPIDOGREL BISULFATE 75 MG TABLET (FP) PO SCH (21:26)
[2017-07-21] MEDS: MIRTAZAPINE 15 MG TABLET (FP) PO SCH (21:27)
[2017-07-21] MEDS: THIAMINE HCL 100 MG TABLET (FP) PO SCH (21:27)
[2017-07-22] MEDS: HYDROCHLOROTHIAZIDE 25 MG TABLET (FP) PO SCH (10:18)
[2017-07-22] MEDS: amLODIPine BESYLATE 10 MG TABLET (FP) PO SCH (10:18)
[2017-07-22] MEDS: ASPIRIN 81 MG CHEWABLE TABLETS PO SCH (10:18)
[2017-07-22] MEDS: ARIPiprazole 5 MG TABLET (FP) PO SCH (10:18)
[2017-07-22] MEDS: METOPROLOL TARTRATE 25 MG TABLET (FP) PO SCH (10:18)
[2017-07-22] MEDS: CITALOPRAM HYDROBROMIDE 20 MG TABLET (FP) PO SCH (10:18)
[2017-07-22] MEDS: PRENATAL VITAMINS W/ FOLIC ACID TABLET (FP) PO SCH (10:18)
[2017-07-22] MEDS: NICOTINE 21 MG/24 HOURS TOPICAL PATCH TD SCH (10:19)
[2017-07-22] MEDS: THIAMINE HCL 100 MG TABLET (FP) PO SCH (21:14)
[2017-07-22] MEDS: CLOPIDOGREL BISULFATE 75 MG TABLET (FP) PO SCH (21:14)
[2017-07-22] MEDS: MIRTAZAPINE 15 MG TABLET (FP) PO SCH (21:14)
[2017-07-22] MEDS: ATORVASTATIN CA 10 MG TABLET (FP) PO SCH (21:14)
[2017-07-23] MEDS: METOPROLOL TARTRATE 25 MG TABLET (FP) PO SCH (10:01)
[2017-07-23] MEDS: PRENATAL VITAMINS W/ FOLIC ACID TABLET (FP) PO SCH (10:01)
[2017-07-23] MEDS: amLODIPine BESYLATE 10 MG TABLET (FP) PO SCH (10:01)
[2017-07-23] MEDS: HYDROCHLOROTHIAZIDE 25 MG TABLET (FP) PO SCH (10:01)
[2017-07-23] MEDS: ASPIRIN 81 MG CHEWABLE TABLETS PO SCH (10:01)
[2017-07-23] MEDS: CITALOPRAM HYDROBROMIDE 20 MG TABLET (FP) PO SCH (10:01)
[2017-07-23] MEDS: NICOTINE 21 MG/24 HOURS TOPICAL PATCH TD SCH (10:01)
[2017-07-23] MEDS: ARIPiprazole 5 MG TABLET (FP) PO SCH (10:01)
[2017-07-23] MEDS: CLOPIDOGREL BISULFATE 75 MG TABLET (FP) PO SCH (21:24)
[2017-07-23] MEDS: ATORVASTATIN CA 10 MG TABLET (FP) PO SCH (21:24)
[2017-07-23] MEDS: MIRTAZAPINE 15 MG TABLET (FP) PO SCH (21:24)
[2017-07-23] MEDS: THIAMINE HCL 100 MG TABLET (FP) PO SCH (21:24)
[2017-07-24 07:15] VITALS: TEMP 97.8
[2017-07-24] MEDS: amLODIPine BESYLATE 10 MG TABLET (FP) PO SCH (09:49)
[2017-07-24] MEDS: ARIPiprazole 5 MG TABLET (FP) PO SCH (09:49)
[2017-07-24] MEDS: CITALOPRAM HYDROBROMIDE 20 MG TABLET (FP) PO SCH (09:49)
[2017-07-24] MEDS: METOPROLOL TARTRATE 25 MG TABLET (FP) PO SCH (09:49)
[2017-07-24] MEDS: HYDROCHLOROTHIAZIDE 25 MG TABLET (FP) PO SCH (09:49)
[2017-07-24] MEDS: ASPIRIN 81 MG CHEWABLE TABLETS PO SCH (09:49)
[2017-07-24] MEDS: PRENATAL VITAMINS W/ FOLIC ACID TABLET (FP) PO SCH (09:49)
[2017-07-24] MEDS: NICOTINE 21 MG/24 HOURS TOPICAL PATCH TD SCH (09:50)
[2017-07-24] MEDS: THIAMINE HCL 100 MG TABLET (FP) PO SCH (21:40)
[2017-07-24] MEDS: ATORVASTATIN CA 10 MG TABLET (FP) PO SCH (21:40)
[2017-07-24] MEDS: MIRTAZAPINE 15 MG TABLET (FP) PO SCH (21:40)
[2017-07-24] MEDS: CLOPIDOGREL BISULFATE 75 MG TABLET (FP) PO SCH (21:40)
[2017-07-25] MEDS: PRENATAL VITAMINS W/ FOLIC ACID TABLET (FP) PO SCH (09:56)
[2017-07-25] MEDS: CITALOPRAM HYDROBROMIDE 20 MG TABLET (FP) PO SCH (09:56)
[2017-07-25] MEDS: amLODIPine BESYLATE 10 MG TABLET (FP) PO SCH (09:56)
[2017-07-25] MEDS: ASPIRIN 81 MG CHEWABLE TABLETS PO SCH (09:56)
[2017-07-25] MEDS: ARIPiprazole 5 MG TABLET (FP) PO SCH (09:56)
[2017-07-25] MEDS: METOPROLOL TARTRATE 25 MG TABLET (FP) PO SCH (09:56)
[2017-07-25] MEDS: HYDROCHLOROTHIAZIDE 25 MG TABLET (FP) PO SCH (09:56)
[2017-07-25] MEDS: NICOTINE 21 MG/24 HOURS TOPICAL PATCH TD SCH (09:57)
--- NOTE | 2017-07-25 10:36 | PN ---
Psychiatric Progress Note Vital Signs: Vital Signs Period Temp Pulse Resp BP Sys/Odell Pulse Ox Last 24 Hr 97.8 F 60 18-18 117/73 Date of Session: 07/25/17 Chief Complaint:: Discharge Note HPI: Patient addressing Alcohol and Cocaine Dependence comorbid with Nicotine dependence and MDD, recurrent episode ROS: HLD, PVD, S/P CVA with right sided weakness Current Medications: Active Medications Generic Name Dose Route Start Last Admin Trade Name Freq PRN Reason Stop Dose Admin Acetaminophen 650 mg 07/04/17 14:31 Tylenol - PO Q4H PRN FEVER Al Hydroxide/Mg Hydroxide 30 ml 07/04/17 14:31 Mylanta Oral Suspension - PO Q6H PRN DYSPEPSIA Amlodipine Besylate 10 mg 07/05/17 10:00 07/25/17 09:56 Norvasc - PO 10 mg DAILY NILO Administration Aripiprazole 5 mg 07/05/17 10:00 07/25/17 09:56 Abilify PO 5 mg DAILY NILO Administration Aspirin 81 mg 07/05/17 10:00 07/25/17 09:56 Asa - PO 81 mg DAILY NILO Administration Atorvastatin Calcium 10 mg 07/04/17 22:00 07/24/17 21:40 Lipitor - PO 10 mg HS NILO Administration Citalopram Hydrobromide 20 mg 07/05/17 10:00 07/25/17 09:56 Celexa - PO 20 mg DAILY NILO Administration Clopidogrel Bisulfate 75 mg 07/04/17 22:00 07/24/17 21:40 Plavix - PO 75 mg HS NILO Administration Eucalyptus/Menthol/Phenol/Sorbitol 1 each 07/04/17 14:31 Cepastat Lozenge - MM Q4H PRN SORE THROAT Guaifenesin 10 ml 07/04/17 14:31 Robitussin Dm - PO Q6H PRN COUGH Hydrochlorothiazide 25 mg 07/05/17 10:00 07/25/17 09:56 Hctz - PO 25 mg DAILY NILO Administration Hydroxyzine Pamoate 50 mg 07/04/17 14:31 Vistaril - PO Q4H PRN AGITATION Loperamide HCl 4 mg 07/04/17 14:31 Imodium - PO Q6H PRN DIARRHEA Magnesium Citrate 300 ml 07/04/17 14:31 Citroma - PO Q48H PRN CONSTIPATION Magnesium Hydroxide 30 ml 07/04/17 14:31 Milk Of Magnesia - PO DAILY PRN CONSTIPATION Melatonin 5 mg 07/04/17 22:00 07/19/17 21:32 Melatonin PO 5 mg HS PRN Administration INSOMNIA Metoprolol Tartrate 25 mg 07/05/17 10:00 07/25/17 09:56 Lopressor - PO 25 mg DAILY NILO Administration Mirtazapine 15 mg 07/04/17 22:00 07/24/17 21:40 Remeron - PO 15 mg HS NILO Administration Nicotine 21 mg 07/05/17 10:00 07/25/17 09:57 Nicoderm Patch - TD Not Given DAILY NILO Nicotine Polacrilex 2 mg 07/04/17 14:31 Nicorette Gum - BC Q2H PRN NICOTINE REPLACEMENT RX Nitroglycerin 0.4 mg 07/04/17 14:45 Nitrostat - SL PRN PRN CHEST PAIN Multivit/Folic Acid/Iron 1 tab 07/05/17 10:00 07/25/17 09:56 Vitamins (Sj[facility]) - PO 1 tab DAILY NILO Administration Pseudoephedrine/Triprolidine 1 combo 07/04/17 14:31 Actifed - PO TID PRN NASAL CONGESTION Thiamine HCl 100 mg 07/04/17 22:00 07/24/17 21:40 Vitamin B1 - PO 100 mg HS NILO Administration Current Side Effect: No Lab tests ordered: Yes Lab tests reviewed: Yes Provider note:: Patient has completed this program today. He has met his treatment goals and will continue to address his issues in [facility] residential treatment at [facility]. Told scenario writer that from his participation in this program, he has learned to be patient and to confront his fears by talking to people. He responded well to Abilify 5 mg po daily, Celexa 20 mg po daily and Remeron 15 mg po HS. Scripts for 30 days supply of these medications are electronically transmitted to [facility] at [address] [place] [id number]. He is stable for discharge today Total face to face time:: 35 Mental Status Exam - Mental Status Exam Alert and Oriented to: Time, Place, Person Cognitive Function: Fair Patient Appearance: Well Groomed Mood: Hopeful, Euthymic Affect: Appropriate Patient Behavior: Cooperative Speech Pattern: Clear Voice Loudness: Normal Thought Process: Intact, Goal Oriented Hallucinations: Denies Suicidal Ideation: Denies Homicidal Ideation: Denies Insight/Judgement: Fair Sleep: Fair Appetite: Good Muscle strength/Tone: Normal Gait/Station: Normal Psychiatric Treatment Plan - Problem List (1) Alcohol dependence Current Visit: Yes Qualifiers: Substance use status: uncomplicated Qualified Code(s): F10.20 - Alcohol dependence, uncomplicated (2) Cocaine dependence Current Visit: Yes Qualifiers: Substance use status: uncomplicated Qualified Code(s): F14.20 - Cocaine dependence, uncomplicated (3) Nicotine dependence Current Visit: No Qualifiers: Nicotine product type: cigarettes Substance use status: in withdrawal Qualified Code(s): F17.213 - Nicotine dependence, cigarettes, with withdrawal (4) MDD (major depressive disorder), recurrent episode Current Visit: Yes Qualifiers: Major depression episode severity: unspecified Qualified Code(s): F33.9 - Major depressive disorder, recurrent, unspecified (5) PVD (peripheral vascular disease) Current Visit: Yes (6) Essential (primary) hypertension Current Visit: Yes (7) Hemiparesis affecting left side as late effect of cerebrovascular accident Current Visit: Yes (8) Hypercholesteremia Current Visit: Yes (9) CAD (coronary artery disease) Current Visit: No Qualifiers: Coronary Disease-Associated Artery/Lesion type: [place] artery [place] vs. transplanted heart: [place] heart Associated angina: without angina Qualified Code(s): I25.10 - Atherosclerotic heart disease of [place] coronary artery without angina pectoris Initial treatment plan: Patient is discharged today and referred to [facility] for engine inspector residential treatment
[2017-07-25 12:13] VITALS: BP 129/67; PULSE 77
== END 2017-07-25 11:30 | disposition home or self-care (01) | DRG 772 ==
LOC: YASAS 11:01 → Y5N 13:25
PROVIDERS: ADMIT Psychiatry & Neurology Psychiatry; ATTEND Psychiatry & Neurology Psychiatry
PROC: HZ42ZZZ Group Counseling for Substance Abuse Treatment, Cognitive-Behavioral (ICD-10-PCS; principal; 2017-07-04)
DX: F10.20 Alcohol dependence, uncomplicated (principal); F14.20 Cocaine dependence, uncomplicated; F17.213 Nicotine dependence, cigarettes, with withdrawal; F33.9 Major depressive disorder, recurrent, unspecified; I10 Essential (primary) hypertension; I73.9 Peripheral vascular disease, unspecified; I25.10 Atherosclerotic heart disease of native coronary artery without angina pectoris; I69.354 Hemiplegia and hemiparesis following cerebral infarction affecting left non-dominant side; E78.00 Pure hypercholesterolemia, unspecified; R26.2 Difficulty in walking, not elsewhere classified; Z99.89 Dependence on other enabling machines and devices; Z95.5 Presence of coronary angioplasty implant and graft
CPT/HCPCS: 81003; 81015; 93005; 93010

== ENCOUNTER 2024-11-29 06:14 | Day surgery (SDC) | payer OTHER ==
[2024-11-26 11:30] VITALS: BMI 34.7
[2024-11-29] MEDS ORDERED: LIDOCAINE HCL 1%, 10 MG/ML (20ML VIAL) ONE (07:31)
[2024-11-29] MEDS ORDERED: MIDAZOLAM HCL 2 MG/2 ML SINGLE DOSE VIAL ONE (08:09)
[2024-11-29] MEDS ORDERED: HEPARIN NA (PORCINE) 5,000 UNITS/ML 1ML VIAL ONE ×2 (08:10→08:16)
[2024-11-29] MEDS ORDERED: ACETAMINOPHEN INJECTION 100 ML ONE (08:10)
[2024-11-29] MEDS ORDERED: DEXMEDETOMIDINE HCL 200 MCG/2 ML IVPB ONE (08:10)
[2024-11-29] MEDS ORDERED: VERAPAMIL HCL 5 MG/2 ML VIAL IVPUSH ONE (08:15)
[2024-11-29] MEDS ORDERED: NITROGLYCERIN 50 MG/10 ML VIAL IVPB ONE (08:15)
[2024-11-29] MEDS ORDERED: PROPOFOL 20 ML ONE (08:18)
[2024-11-29] MEDS: LIDOCAINE HCL 1%, 10 MG/ML (50 mL VIAL) INF ONE ×3 (08:36)
[2024-11-29] MEDS ORDERED: ONDANSETRON 4 MG/2 ML VIAL ONE (08:37)
[2024-11-29] MEDS ORDERED: ONDANSETRON 4 MG/2 ML VIAL IVPUSH PRN (08:54)
[2024-11-29] MEDS ORDERED: LACTATED RINGERS SOLUTION 1,000 ML IV SCH (09:00)
[2024-11-29] MEDS ORDERED: ACETAMINOPHEN 325 MG TABLET (FP) PO PRN (10:06)
[2024-11-29 14:20] VITALS: BP 135/76; PULSE 54; RESP 16; TEMP 98
== END 2024-11-29 14:30 | disposition home or self-care (01) ==
LOC: JASU-SURG 06:14
PROVIDERS: ATTEND Surgery
PROC: 047Q3ZZ Dilation of Left Anterior Tibial Artery, Percutaneous Approach (ICD-10-PCS; 2024-11-29)
PROC: 047N3ZZ Dilation of Left Popliteal Artery, Percutaneous Approach (ICD-10-PCS; principal; 2024-11-29 08:00)
DX: I73.9 Peripheral vascular disease, unspecified (principal)
CPT/HCPCS: 37228; 37232; C1885; 76000-TC-FY; 86850; 86900; 86901; 94760; J1644